=== PATIENT | female | born 1960 | race Caucasian/White ===

== ENCOUNTER → 2017-03-11 12:10 | Outpatient (CLI) | payer MEDICARE, MEDICAID, SELFPAY ==
[2017-03-11 14:09] LABS: Alanine Aminotransferase 22 U/L (12-78); Albumin Level 4.1 gm/dL (3.4-5.0); Albumin/Globulin Ratio 1.5 (1.1-1.8); Alkaline Phosphatase 100 U/L (46-116); Anion Gap 12.8 mEq/L (5-15); Aspartate Amino Transferase 23 U/L (15-37); Bilirubin,Total 0.5 mg/dL (0.2-1.0); Blood Urea Nitrogen 17 mg/dL (7-18); Calcium 9.2 mg/dL (8.5-10.1); Carbon Dioxide 29 mmol/L (21.0-32.0); Chloride 101 mmol/L (98-107); Chol/HDL Ratio 5.3 (1-3.5); Cholesterol 239 mg/dL (140-200); Creatinine,Serum 0.54 mg/dL (0.55-1.02); Estimated Glomerular Filt Rate 116 ml/min (>60); GFR (African American) 140 ML/MIN (>60); Globulin 2.8 gm/dl (1.3-3.2); Glucose 88 mg/dL (74-106); HDL Cholesterol 45 mg/dL (29-89); Potassium 3.8 mmoL/L (3.5-5.1); Sodium 139 mmol/L (136-145); Total Protein,Serum 6.9 gm/dL (6.4-8.2)
[2017-03-11 14:11] LABS: Triglycerides 720 mg/dL (30-200)
== END ==
PROVIDERS: PCP Internal Medicine Adolescent Medicine; Visit Provider Internal Medicine Adolescent Medicine
DX: E78.2 Mixed hyperlipidemia (principal)
CPT/HCPCS: 36415; 80053; 80061

== ENCOUNTER → 2017-07-21 12:54 | Outpatient (CLI) | payer MEDICARE, MEDICAID, SELFPAY | PROVIDERS: Family Provider Internal Medicine Adolescent Medicine; PCP Internal Medicine Adolescent Medicine; Visit Provider Nurse Practitioner Family | DX: J43.1 Panlobular emphysema (principal) | CPT/HCPCS: 94060; 94640 ==

== ENCOUNTER 2017-08-04 09:04 | Outpatient (RCR) | payer MEDICARE, MEDICAID, SELFPAY | END 2017-10-07 13:12 | disposition home or self-care (01) | LOC: PT 09:04 | PROVIDERS: Family Provider Internal Medicine Adolescent Medicine; PCP Internal Medicine Adolescent Medicine; Visit Provider Nurse Practitioner Family | DX: J43.1 Panlobular emphysema (principal); J44.1 Chronic obstructive pulmonary disease with (acute) exacerbation | CPT/HCPCS: G0424 ==

== ENCOUNTER → 2017-09-09 12:37 | Outpatient (CLI) | payer MEDICARE, MEDICAID, SELFPAY ==
[2017-09-09 12:57] LABS: Basophils # 0.1 K/mm3 (0-0.2); Basophils % 1.1 % (0.1-2.0); Eosinophils # 0.4 K/mm3 (0.0-0.4); Eosinophils % 6.6 % (0.1-12.0); Hematocrit 39.9 % (37.0-47.0); Hemoglobin 12.7 g/dL (12.2-16.2); Lymphocytes # 2.2 K/mm3 (0.7-4.5); Mean Corpuscular HGB Conc 31.7 g/dL (31.8-35.4); Mean Corpuscular Volume 100.7 fl (81-99); Mean Platelet Volume 6.8 fl (7.4-10.4); Monocytes # 0.5 K/mm3 (0.1-1.0); Monocytes % 7.9 % (1.7-9.3); Neutrophils % 49.4 % (37.0-80.0); Platelet Count 333 K/mm3 (142-424); Red Blood Count 3.96 M/mm3 (4.20-5.40); Red Cell Distribution Width 12.8 % (11.5-17.5); White Blood Count 6.1 K/mm3 (4.8-10.8)
--- NOTE | 2017-09-09 13:07 | XR_ITS ---
XR acute abdomen series HISTORY: Abdominal pain ORDERING PHYSICIAN: Alexey Pedraza MD PATIENT AGE: 57 years COMPARISON: PA and lateral chest 03/15/2016 TECHNIQUE: Upright view of the chest is performed along with upright and supine views of the abdomen and pelvis. FINDINGS: An upright view of the chest shows no acute cardiac or pulmonary pathology. The lungs are clear except for minimal post inflammatory scarring in the lingula.. Upright and supine views of the abdomen show an unremarkable bowel gas pattern. No intestinal obstruction or free air is evident. There is a moderate amount stool in the cecum and ascending colon. There is mildly dilated redundant sigmoid colon noted. There is prominent levoscoliotic curvature of the lower thoracic spine and thoracolumbar junction with a mild rotatory component. There is moderate arteriosclerotic calcification of the infrarenal aorta without evidence of aneurysm IMPRESSION: No acute finding.
[2017-09-09 14:14] LABS: Alanine Aminotransferase 26 U/L (12-78); Albumin Level 4.3 gm/dL (3.4-5.0); Albumin/Globulin Ratio 1.4 (1.1-1.8); Anion Gap 10.6 mEq/L (5-15); Aspartate Amino Transferase 18 U/L (15-37); Bilirubin,Total 0.2 mg/dL (0.2-1.0); Blood Urea Nitrogen 14 mg/dL (7-18); Calcium 9.6 mg/dL (8.5-10.1); Carbon Dioxide 29 mmol/L (21.0-32.0); Chloride 104 mmol/L (98-107); Cholesterol 265 mg/dL (140-200); Creatinine,Serum 0.49 mg/dL (0.55-1.02); Estimated Glomerular Filt Rate 130 ml/min (>60); GFR (African American) 157 ML/MIN (>60); Glucose 90 mg/dL (74-106); HDL Cholesterol 64 mg/dL (29-89); Potassium 3.6 mmoL/L (3.5-5.1); Sodium 140 mmol/L (136-145); Total Protein,Serum 7.3 gm/dL (6.4-8.2); Triglycerides 357 mg/dL (30-200); VLDL Cholesterol 71 mg/dL (0-40)
[2017-09-09 14:15] LABS: Alkaline Phosphatase 87 U/L (46-116); Chol/HDL Ratio 4.1 (1-3.5); LDL Cholesterol 130 mg/dL (0-130)
== END ==
PROVIDERS: PCP Internal Medicine Adolescent Medicine; Visit Provider Internal Medicine Adolescent Medicine
DX: E78.1 Pure hyperglyceridemia (principal); R10.84 Generalized abdominal pain
CPT/HCPCS: 36415; 74021; 80053; 80061; 85025

== ENCOUNTER → 2018-03-08 12:41 | Outpatient (CLI) | payer MEDICARE, MEDICAID, SELFPAY ==
[2018-03-08 13:30] LABS: Basophils # 0.1 K/mm3 (0-0.2); Basophils % 0.6 % (0.1-2.0); Eosinophils % 0.1 % (0.1-12.0); Hematocrit 40.1 % (37.0-47.0); Hemoglobin 12.5 g/dL (12.2-16.2); Lymphocytes # 1.7 K/mm3 (0.7-4.5); Lymphocytes % 17.6 % (10-50); Mean Corpuscular HGB Conc 31.3 g/dL (31.8-35.4); Mean Corpuscular Hemoglobin 31.5 pg (27.0-31.2); Mean Corpuscular Volume 100.6 fl (81-99); Mean Platelet Volume 7.2 fl (7.4-10.4); Monocytes # 0.4 K/mm3 (0.1-1.0); Monocytes % 4.5 % (1.7-9.3); Neutrophils # 7.3 K/mm3 (1.8-7.8); Neutrophils % 77.3 % (37.0-80.0); Platelet Count 317 K/mm3 (142-424); Red Blood Count 3.98 M/mm3 (4.20-5.40); Red Cell Distribution Width 13.6 % (11.5-17.5); White Blood Count 9.4 K/mm3 (4.8-10.8)
[2018-03-08 16:42] LABS: Alanine Aminotransferase 27 U/L (12-78); Albumin Level 4.3 gm/dL (3.4-5.0); Albumin/Globulin Ratio 1.3 (1.1-1.8); Alkaline Phosphatase 83 U/L (46-116); Anion Gap 16.8 mEq/L (5-15); Aspartate Amino Transferase 20 U/L (15-37); Bilirubin,Total 0.4 mg/dL (0.2-1.0); Blood Urea Nitrogen 17 mg/dL (7-18); Calcium 9.2 mg/dL (8.5-10.1); Carbon Dioxide 27 mmol/L (21.0-32.0); Chloride 100 mmol/L (98-107); Cholesterol 231 mg/dL (140-200); Creatinine,Serum 0.61 mg/dL (0.55-1.02); Estimated Glomerular Filt Rate 100 ml/min (>60); GFR (African American) 121 ML/MIN (>60); Globulin 3.2 gm/dl (1.3-3.2); Glucose 95 mg/dL (74-106); HDL Cholesterol 76 mg/dL (29-89); LDL Cholesterol 131 mg/dL (0-130); Potassium 3.8 mmoL/L (3.5-5.1); Sodium 140 mmol/L (136-145); Total Protein,Serum 7.5 gm/dL (6.4-8.2); Triglycerides 119 mg/dL (30-200); VLDL Cholesterol 24 mg/dL (0-40)
== END ==
PROVIDERS: Visit Provider Internal Medicine Adolescent Medicine
DX: E78.2 Mixed hyperlipidemia (principal); M47.816 Spondylosis without myelopathy or radiculopathy, lumbar region
CPT/HCPCS: 36415; 80053; 80061; 85025

== ENCOUNTER → 2018-05-18 15:43 | Outpatient (CLI) | payer MEDICARE, MEDICAID, SELFPAY ==
--- NOTE | 2018-05-18 15:47 | MM_ITS ---
MM Dig screening mamm BI w/CAD CAD Screening COMPARISON: Digital mammograms with CAD 09/24/2011 and previous analog mammogram June 2009 INDICATION: There is no personal or family history of breast cancer TECHNIQUE: Standard CC and MLO images were obtained. R2 CAD reviewed. FINDINGS: Scattered fibroglandular densities are seen throughout both breasts. There is no suspicious lesion and there are no suspicious microcalcifications. There are small nodes in both axilla. IMPRESSION: Fibrofatty parenchyma with no suspicious lesion seen BI-RADS Category: 1 Negative RECOMMENDED FOLLOW-UP: 1YR - 1 YEAR FOLLOW-UP (A letter has been sent to the patient regarding results of the study.)
== END ==
PROVIDERS: PCP Internal Medicine Adolescent Medicine; Visit Provider Internal Medicine Adolescent Medicine
DX: Z12.31 Encounter for screening mammogram for malignant neoplasm of breast (principal)
CPT/HCPCS: 77067

== ENCOUNTER → 2018-08-14 08:08 | Outpatient (CLI) | payer MEDICARE, MEDICAID, SELFPAY ==
[2018-08-14 08:14] LABS: Basophils # 0.1 K/mm3 (0-0.2); Eosinophils # 0.4 K/mm3 (0.0-0.4); Eosinophils % 5.5 % (0.1-12.0); Hematocrit 40.6 % (37.0-47.0); Hemoglobin 12.6 g/dL (12.2-16.2); Lymphocytes % 32.4 % (10-50); Mean Corpuscular HGB Conc 31.1 g/dL (31.8-35.4); Mean Corpuscular Hemoglobin 29.9 pg (27.0-31.2); Mean Corpuscular Volume 96.2 fl (81-99); Mean Platelet Volume 7.4 fl (7.4-10.4); Monocytes # 0.3 K/mm3 (0.1-1.0); Monocytes % 4.6 % (1.7-9.3); Neutrophils # 3.6 K/mm3 (1.8-7.8); Neutrophils % 56.6 % (37.0-80.0); Platelet Count 321 K/mm3 (142-424); Red Blood Count 4.22 M/mm3 (4.20-5.40); Red Cell Distribution Width 12.5 % (11.5-17.5); White Blood Count 6.3 K/mm3 (4.8-10.8)
[2018-08-14 08:24] LABS: Alanine Aminotransferase 25 U/L (12-78); Albumin/Globulin Ratio 1.3 (1.1-1.8); Alkaline Phosphatase 78 U/L (46-116); Anion Gap 12.6 mEq/L (5-15); Aspartate Amino Transferase 19 U/L (15-37); Bilirubin,Total 0.6 mg/dL (0.2-1.0); Blood Urea Nitrogen 10 mg/dL (7-18); Calcium 9.2 mg/dL (8.5-10.1); Carbon Dioxide 29 mmol/L (21.0-32.0); Chloride 101 mmol/L (98-107); Estimated Glomerular Filt Rate 126 ml/min (>60); GFR (African American) 153 ML/MIN (>60); Globulin 3.1 gm/dl (1.3-3.2); Glucose 102 mg/dL (74-106); Potassium 3.6 mmoL/L (3.5-5.1); Sodium 139 mmol/L (136-145); Total Protein,Serum 7.1 gm/dL (6.4-8.2)
--- NOTE | 2018-08-14 08:51 | CT_ITS ---
CT chest wo/w con HISTORY: Smoker, cough, hemoptysis ITS.REASON: HEMOPTYSIS ORDERING PHYSICIAN: Alexey Pedraza MD PATIENT AGE: 58 years COMPARISON: None Technique: Contrast Used:75ml Optiray 350 Axial images were obtained without and with contrast. Sagittal, and coronal reformatted images are also generated and reviewed. All CT scans at the facility use one or more dose reduction, viz: automated exposure control, ma/kV adjustment per patient size (including targeted exams where dose is matched to indication, i.e. head), or iterative reconstruction technique. FINDINGS: No mediastinal or hilar mass or adenopathy. No evidence of aortic aneurysm or dissection. No coronary artery calcifications are evident on the unenhanced images. There are scattered calcified mediastinal and hilar nodes. There is evidence of old granulomatous disease. There is centrilobular emphysema with COPD. 3 mm noncalcified subpleural nodules present in the right upper lobe anterolaterally on image #37. 4 mm noncalcified subpleural nodule present in the left upper lobe anteriorly image #34. Atelectatic or fibrotic changes are present in the lingula. Atelectatic or fibrotic changes also noted in the right lower lobe laterally. There is some minimal nodularity at this region measuring up to 6 mm. There is moderate mid thoracic scoliosis convex right and thoracic lumbar scoliosis convex left with degenerative changes noted of the thoracic and lumbar spine. There are old left-sided rib fractures. IMPRESSION: 1. COPD with centrilobular disease with atelectasis or fibrosis in the lingula 2. There are at least 3 noncalcified pulmonary nodular opacities. These are 6 mm or less. Consider 6 month follow-up. 3. Thoracolumbar scoliosis
== END ==
PROVIDERS: Visit Provider Internal Medicine Adolescent Medicine
DX: R04.2 Hemoptysis (principal); J43.1 Panlobular emphysema
CPT/HCPCS: 36415; 71270; 80053; 82565; 85025; Q9967

== ENCOUNTER → 2018-11-16 08:33 | Outpatient (POV) | payer MEDICARE, MEDICAID, SELFPAY ==
[2018-11-16 08:35] VITALS: BP 118/117; PULSE 111; RESP 18; O2SAT 98; BMI 21.4
--- NOTE | 2018-11-16 12:56 | HMH.PMCON ---
Assessment and Plan (1) Lumbar back pain Current visit: Yes Status: Chronic Category: Medical Code(s): M54.5 - Low back pain (2) Lumbar radiculopathy Current visit: Yes Status: Chronic Category: Medical Code(s): M54.16 - Radiculopathy, lumbar region - Assessment and plan all Dx Assessment and Plan for all problems:: Patient had a very long discussion that we would not be providing any other oral medications the patient is currently taking [place] 7.5 mg [address] Pedraza. The patient is in agreement to have injective therapy after a long discussion concerning the procedure. Patient would like to proceed with a lumbar epidural steroid injection. Given her imaging and her chronic low back pain, I do think the patient would benefit from an injection at L4-L5. We will schedule the patient for the procedure see her back in the clinic following the procedure to reassess her symptoms. Patient is not on any anticoagulation therapy. Ice and heat therapies, along with anti-inflammatories and a home stretching program. The patient has been encouraged to contact the clinic if she has any concerns before her next appointment. Dr. Bowles has reviewed this note and agrees with this plan of care. This note was dictated using voice recognition software and make contain errors or omissions. HPI - Data of Consult Consult date: 11/16/18 Requesting Physician: Laina Montemayor APRN Primary Care Provider: Alexey Pedraza MD - Consult Narrative Reason for consult: Back pain History of present illness: Ms. Navarro is a 58 year old white female today for consultation for low back pain lumbar radicular symptoms. Patient says that she is a for long periods of time. Patient says that she is getting progressively worsening pain to her low back and legs. Patient says that she is unable to stand for more than a minute or walk for more than 5 minutes. She says that she developed severe spasms, to the point that she is unable to move. Patient says that she has been taking oral opiates for many years, but says that she has recently been weaned down on the medication. Patient is not happy to have been weaned on her medications. Patient says that she has taken medication for than 20 years for her back pain. She says that she is now seeing Dr. Decker who has decreased her medicine and she is here today to discuss possible pain management. Patient says that she is terrified of needles and is unsure if she would like to do injective therapy. She also says she is not interested in any type of implantable devices at this time. Patient would like to discuss possible oral medications. She says that she thinks she would prefer that to injective therapy. Patient says Dr. Melendez has been weaning her for more than 2 years on her medication. She rates her pain a 9 out of 10 today. Says she is unable to bend forward or to sit for very long. She also says that she is having a hard time focusing due to the pain. The patient has tried conservative therapies which include physical therapy for greater than 6 weeks, along with a home stretching program currently. She says she has tried meditation, but is unable to stay focused for very long. She also says she is continuing to take her oral opiates, along with anti-inflammatories. CC: Laina Montemayor APRN [facility] History I have reviewed the patient's past medical history: Yes *Have you ever received a pneumonia vaccine?: No *Have you received a flu vaccine this season?: No Other Medical History: Reports: Arthritis - *Social History Smoking Status: Current some day smoker Tobacco Type: cigarettes # Packs/Day (cigarettes): 1 Alcohol Intake: never *Occupational Status:: other Housing: house Household Members: other *Travel in the last 8 weeks: None Family Hx:: Unable to obtain Review of Systems - Review of Systems Review of Systems General: No recent weight changes, no fever, no sleep dis
--- NOTE | 2018-11-16 13:00 | P.CONS_ITS ---
Assessment and Plan (1) Lumbar back pain Current visit: Yes Status: Chronic Category: Medical Code(s): M54.5 - Low back pain (2) Lumbar radiculopathy Current visit: Yes Status: Chronic Category: Medical Code(s): M54.16 - Radiculopathy, lumbar region - Assessment and plan all Dx Assessment and Plan for all problems:: Patient had a very long discussion that we would not be providing any other oral medications the patient is currently taking [place] 7.5 mg [address] Pedraza. The patient is in agreement to have injective therapy after a long discussion concerning the procedure. Patient would like to proceed with a lumbar epidural steroid injection. Given her imaging and her chronic low back pain, I do think the patient would benefit from an injection at L4-L5. We will schedule the patient for the procedure see her back in the clinic following the procedure to reassess her symptoms. Patient is not on any anticoagulation therapy. Ice and heat therapies, along with anti-inflammatories and a home stretching program. The patient has been encouraged to contact the clinic if she has any concerns before her next appointment. Dr. Bowles has reviewed this note and agrees with this plan of care. This note was dictated using voice recognition software and make contain errors or omissions. HPI - Data of Consult Consult date: 11/16/18 Requesting Physician: Laina Montemayor APRN Primary Care Provider: Alexey Pedraza MD - Consult Narrative Reason for consult: Back pain History of present illness: Ms. Navarro is a 58 year old white female today for consultation for low back pain lumbar radicular symptoms. Patient says that she is a for long periods of time. Patient says that she is getting progressively worsening pain to her low back and legs. Patient says that she is unable to stand for more than a minute or walk for more than 5 minutes. She says that she developed severe spasms, to the point that she is unable to move. Patient says that she has been taking oral opiates for many years, but says that she has recently been weaned down on the medication. Patient is not happy to have been weaned on her medications. Patient says that she has taken medication for than 20 years for her back pain. She says that she is now seeing Dr. Decker who has decreased her medicine and she is here today to discuss possible pain management. Patient says that she is terrified of needles and is unsure if she would like to do injective therapy. She also says she is not interested in any type of implantable devices at this time. Patient would like to discuss possible oral medications. She says that she thinks she would prefer that to injective therapy. Patient says Dr. Melendez has been weaning her for more than 2 years on her medication. She rates her pain a 9 out of 10 today. Says she is unable to bend forward or to sit for very long. She also says that she is having a hard time focusing due to the pain. The patient has tried conservative therapies which include physical therapy for greater than 6 weeks, along with a home stretching program currently. She says she has tried meditation, but is unable to stay focused for very long. She also says she is continuing to take her oral opiates, along with anti-inflammatories. CC: Laina Montemayor APRN [facility] History I have reviewed the patient's past medical history: Yes *Have you ever received a pneumonia vaccine?: No *Have you received a flu vaccine this season?: No Other Medical History: Reports: Arthritis - *Social History Smoking Status: Current some day smoker Tobacco Type: cigarettes # Packs/Day (cigarettes): 1
== END ==
PROVIDERS: PCP Internal Medicine Adolescent Medicine; Visit Provider Clinical Nurse Specialist Family Health
DX: M54.5 Low back pain (principal); M54.16 Radiculopathy, lumbar region
CPT/HCPCS: 99202

== ENCOUNTER → 2019-02-03 07:33 | Outpatient (CLI) | payer MEDICARE, MEDICAID, SELFPAY ==
[2019-02-03 07:55] LABS: Basophils # 0.1 K/mm3 (0-0.2); Basophils % 0.7 % (0.1-2.0); Eosinophils # 0.2 K/mm3 (0.0-0.4); Eosinophils % 2.5 % (0.1-12.0); Hematocrit 41.2 % (37.0-47.0); Hemoglobin 13.8 g/dL (12.2-16.2); Lymphocytes # 2.6 K/mm3 (0.7-4.5); Lymphocytes % 38.1 % (10-50); Mean Corpuscular HGB Conc 33.5 g/dL (31.8-35.4); Mean Corpuscular Hemoglobin 32.6 pg (27.0-31.2); Mean Corpuscular Volume 97.5 fl (81-99); Monocytes # 0.4 K/mm3 (0.1-1.0); Neutrophils # 3.5 K/mm3 (1.8-7.8); Neutrophils % 52.6 % (37.0-80.0); Platelet Count 306 K/mm3 (142-424); Red Blood Count 4.23 M/mm3 (4.20-5.40); White Blood Count 6.7 K/mm3 (4.8-10.8)
[2019-02-03 12:26] LABS: Alanine Aminotransferase 16 U/L (12-78); Albumin Level 4.2 gm/dL (3.4-5.0); Albumin/Globulin Ratio 1.5 (1.1-1.8); Alkaline Phosphatase 70 U/L (46-116); Aspartate Amino Transferase 19 U/L (15-37); Bilirubin,Total 0.7 mg/dL (0.2-1.0); Blood Urea Nitrogen 16 mg/dL (7-18); Calcium 9.6 mg/dL (8.5-10.1); Carbon Dioxide 29 mmol/L (21.0-32.0); Chloride 97 mmol/L (98-107); Chol/HDL Ratio 5.2 (1-3.5); Cholesterol 262 mg/dL (140-200); Creatinine,Serum 0.63 mg/dL (0.55-1.02); Estimated Glomerular Filt Rate 97 ml/min (>60); GFR (African American) 117 ML/MIN (>60); Globulin 2.8 gm/dl (1.3-3.2); Glucose 90 mg/dL (74-106); HDL Cholesterol 50 mg/dL (29-89); Sodium 140 mmol/L (136-145)
[2019-02-03 12:43] LABS: Triglycerides 1023 mg/dL (30-200)
== END ==
PROVIDERS: Visit Provider Internal Medicine Adolescent Medicine
DX: E78.2 Mixed hyperlipidemia (principal); J43.1 Panlobular emphysema
CPT/HCPCS: 36415; 80053; 80061; 85025

== ENCOUNTER → 2019-04-17 13:47 | Outpatient (CLI) | payer MEDICARE, MEDICAID, SELFPAY ==
[2019-04-17 14:55] LABS: Amphetamine/Metha Screen,Urine Negative ng/ml (<1000)
[2019-04-17 14:56] LABS: Barbiturates Screen,Urine Negative ng/ml (<200); Benzodiazepines Screen,Urine Negative ng/ml (<200)
[2019-04-17 14:57] LABS: Cannabinoid Screen,Urine Negative ng/ml (<50)
[2019-04-17 14:58] LABS: Cocaine Screen,Urine Negative ng/ml (<300); Methadone Screen,Urine Negative ng/ml (<300)
[2019-04-17 14:59] LABS: Opiate Screen,Urine Positive ng/ml (<300); Phencyclidine Screen,Urine Negative ng/ml (<25)
== END ==
PROVIDERS: Visit Provider Emergency Medicine
DX: M54.5 Low back pain (principal); M54.6 Pain in thoracic spine
CPT/HCPCS: 80305

== ENCOUNTER → 2019-09-04 06:10 | Outpatient (CLI) | payer MEDICARE, MEDICAID, SELFPAY ==
--- NOTE | 2019-09-04 | CA_ITS ---
APPROVED REPORT Exam: Pharmacologic Technologist: Heather Garcia Ht: 5 ft 1 in Wt: 114 lbs BSA: 1.49 m2 HR: 67 bpm BP: 173/97 mmHg Indications: Chest pain, Shortness of Air Medical History Medications: Trazadone,,,,, Pantoprazole,,,,, Albuterol,,,,, Famotidine,,,,, Prednisone,,,,, FeNOfibrate,,,,, OxYCODONE,,,,, BisOPROLOL,,,,, FluTICASONE,,,,, Quetiapine,,,,, Stress Test Details Test: LEXISCAN HR Resting HR: 78 bpm Max Heart Rate (APMHR): 160 bpm Max HR Achieved: 100 bpm Target HR (85% APMHR): 136 bpm % of APMHR: 62 Recovery HR: 84 bpm BP Resting BP: 173.0/97.0 mmHg Max BP: 173.0/97.0 mmHg Recovery BP: 145.0/94.0 mmHg ECG Clinical Exercise duration: 04:05 min Highest Stage Achieved: Exercise capacity: 1.0 METs Stress ECG Conclusion Resting ECG: Normal sinus rhythm Symptoms: Shortness of air, malaise, mild chest tightness. Arrhythmias/Ectopy: None ST-T Changes: No significant changes. Conclusion: Unremarkable Lexiscan stress. Myoview images reported separately. Electronically signed by : Rohith Armijo, 09/04/2019 20:25:13
--- NOTE | 2019-09-04 06:11 | CA_ITS ---
APPROVED REPORT EXAM: Comprehensive 2D, Doppler, and color-flow Echocardiogram Operations Accountant: Afsaneh Andre RDCS Ht: 5 ft 1 in Wt: 114lbs BSA: 1.49 BP: 168/98 mmHg Indications: CP.COPD,SMOKER,SOA,BAUER,HTN 2D Dimensions LVOT 1.73 cm (M/F) 1.5-2.5 M-Mode Dimensions RVDd 3.26 cm (0.9-2.6) LVDd 4.66 cm (3.5-5.7) LVDs 2.61 cm (3.5-5.7) IVSd 0.84 cm (0.6-1.1) PWd 0.92 cm (0.6-1.1) EF (Teich) 75.30% FS 44.00% EDV (Teich) 100.30 mL ESV (Teich) 24.80 mL LV Diastology E/A Ratio 0.72 Mitral Valve MV A Velocity 73.00 (40-130 cm/s) Left Ventricle Left atrium is mildly enlarged, left ventricle is normal size, mild concentric left ventricular hypertrophy, visually estimated ejection fraction 55% with no regional wall motion abnormality, grade 1 diastolic dysfunction seen without tissue Doppler evidence of raise left atrial pressure. Right Ventricle Right atrium and right ventricular qualitatively mildly enlarged with normal contractility. Aortic Valve Aortic valve is minimally thickened and fibrosed, there is no aortic stenosis or insufficiency. Mitral Valve Mitral valve is grossly normal, there is mild mitral regurgitation. Tricuspid Valve Tricuspid valve grossly normal, there is mild tricuspid regurgitation, tricuspid regurgitation jet velocity is inadequate for calculation of the right ventricular systolic pressure. Pulmonic Valve Pulmonic valve is poorly visualized. Great Vessels Aortic root is normal size. Pericardium No significant pericardial effusion noted. Conclusion 1. Mild biatrial enlargement, normal left ventricular size, mild concentric left ventricular hypertrophy, visually estimated ejection fraction 55% with no regional wall motion abnormality, grade 1 diastolic dysfunction seen without tissue Doppler evidence of raise left atrial pressure. 2. Mildly enlarged right ventricle with normal contractility. 3. Mild mitral and tricuspid regurgitation. 4. No significant pericardial effusion noted. Electronically signed by : Rohith Armijo, 09/04/2019 19:42:53
--- NOTE | 2019-09-04 06:11 | NM_ITS ---
APPROVED REPORT Exam: Nuclear Stress Test Indication: Chest pain, SOB, HTN, High cholesterol, Former tobacco use Patient Location: Outpatient Stress Tech: Heather Garcia [place] Tech:Heidi Burrows, ARRT, RT (R)(N) Ht: 5 ft 1 in Wt: 114 lbs Bra Size: 36B HR: 67 bpm BP: 173/97 mmHg BSA: 1.49 m2 BMI: 21.5 History: Chest pain, SOB, HTN, High cholesterol, Former tobacco use Procedure: Patient received a 0.4 mg of intravenous Lexiscan, resting heart rate 67 bpm, resting blood pressure 173/97 mmHg, with Lexiscan maximum heart rate achived was 99 bpm which is Less than 85 % of the maximum predicted heart rate and blood pressure was 142/87 mmHg. Electrocardiogram Resting electrocardiogram showed sinus rhythm, with Lexiscan there is less than 1.[address] segment depression noted from the baseline EKG. The EKG portion of the Lexiscan Myoview is nondiagnostic. Cardiac Stress and Resting SPECT Images: Cardiac Stress and Resting SPECT images were obtained using technetium 99m Myoview 32.2 mCi stress and 10.23 mCi at rest. Gated SPECT for the analysis of segmental wall motion and calculation of the ejection fraction also done. Cardiac stress and resting SPECT images show uniform myocardial activity without segmental perfusion abnormality, computer derived ejection fraction is 64% with no regional wall motion abnormality, right ventricle is normal size and contractility. Conclusion: 1. The EKG portion of the Lexiscan Myoview is nondiagnostic. 2. No scintigraphic evidence of reversible ischemia seen, computer derived ejection fraction is 64% with no regional wall motion abnormality, right ventricle is normal size and contractility. 3. Normal Lexiscan Myoview study. Electronically signed by : Rohith Armijo, 09/04/2019 20:26:58
--- NOTE | 2019-09-04 07:06 | HMH.ITSHM ---
Current Home Medications as stated by this patient Chyna Navarro or manufacturing sales representative. []FAMOTIDINE IPRATROPIUM ALBUTEROL TRILEGY QAUETIAPINE TRAZODONE PREDNISONE BISOPROLOL OXYCODONE
== END ==
PROVIDERS: PCP Emergency Medicine; Visit Provider Urology
DX: R06.00 Dyspnea, unspecified (principal); R07.9 Chest pain, unspecified; Z72.0 Tobacco use
CPT/HCPCS: 78452; 93017; 93306; A9502; J2785

== ENCOUNTER → 2019-09-18 07:44 | Outpatient (CLI) | payer MEDICARE, MEDICAID, SELFPAY ==
--- NOTE | 2019-09-18 07:46 | CA_ITS ---
APPROVED REPORT Hospital Admissions Clerk: Colleen Gao RVT Study Quality: Good Indications: malignant htn Risk Factors Hypertension Smoking Renal Artery Doppler Origin (R) 269.0/ cm/sec Proximal (R) 191.9/ cm/sec Mid (R) 166.5/ cm/sec Distal (R) 96.0/ cm/sec Renal Aorta Ratio (R) 3.13 Segmental A. (R) 51.8/30.1 cm/sec RI: 0.41 Segmental A. Sup (R) 34.2/14.9 cm/sec Segmental A. Mid (R) 51.8/30.1 cm/sec Segmental A. Inf (R) 49.9/18.8 cm/sec Origin (L) 162.4/ cm/sec Proximal (L) 98.0/ cm/sec Mid (L) 141.3/ cm/sec Distal (L) 105.6/ cm/sec Renal Aorta Ratio (L) 1.89 Segmental A. (L) 104.2/37.6 cm/sec RI: 0.63 Segmental A. Sup (L) 50.9/21.8 cm/sec Segmental A. Mid (L) 104.2/37.6 cm/sec Segmental A. Inf (L) 59.4/19.4 cm/sec Renal Measurements Kidney Size (R) 10.0x6.6 cm Cortical Thickness (R) 1.3 cm Kidney Size (L) 10.0x6.9 cm Cortical Thickness (L) 1.3 cm Findings Study suggets greater than 60% stenosis of the right renal artery. Study suggets no evidence of renal artery stenosis of the left renal artery. Conclusion Study suggets greater than 60% stenosis of the right renal artery. Study suggets no evidence of renal artery stenosis of the left renal artery. Electronically signed by : Ciarra Baez, 09/20/2019 09:06:23
== END ==
PROVIDERS: PCP Emergency Medicine; Visit Provider Nurse Practitioner Family
DX: I10 Essential (primary) hypertension (principal)
CPT/HCPCS: 93976

== ENCOUNTER → 2019-10-19 08:42 | Outpatient (CLI) | payer MEDICARE, MEDICAID, SELFPAY ==
--- NOTE | 2019-10-19 08:50 | CT_ITS ---
Procedure: CT ANGIO ABDOMEN CLINICAL HISTORY: see renals Hypertension, renal artery stenosis COMPARISON: US CA RENAL ARTERY DUPLEX from 09/18/2019 TECHNIQUE: IV Contrast: 100ml Optiray 350 Axial images obtained with sagittal and coronal reformats. All CT scans at the facility use one or more dose reduction, viz: automated exposure control, ma/kV adjustment per patient size (including targeted exams where dose is matched to indication, i.e. head), or iterative reconstruction technique. FINDINGS: There is tortuosity and atherosclerotic calcification of the abdominal aorta. There are 2 right renal arteries which originate from the aorta at the same level. The anterior of these 2 renal arteries goes to the anterior aspect of the right kidney. There is some mild segmental dilatation of the proximal to mid aspect of this renal artery measuring up to 5 mm. There appears to be a small atheromatous ulcer at this region. There is also mild dilatation of the distal aspect of this main renal artery measuring up to 4 mm at its bifurcation in the renal hilum. There is also mild dilatation of the proximal aspect of the posterior right renal artery measuring up to 5 mm. No significant renal artery stenosis is identified. There are 2 left renal arteries with the dominant artery more superior without evidence of stenosis. There is some minimal dilatation of the distal aspect of the superior left renal artery measuring up to 5 mm. The superior mesenteric artery and celiac artery are unremarkable. The JOSE LUIS is patent. Atheromatous changes involve the aorta with peripheral calcification below the level of the renal arteries. The iliac arteries have an unremarkable appearance. Incidental note made of centrilobular emphysema in the lung bases with consolidation/volume loss involving the inferior aspect of the lingula. There is levoscoliosis of the lumbar spine with multilevel degenerative disc disease and facet arthritic change IMPRESSION: 1. No evidence of renal artery stenosis. 2. There are small segmental areas of dilatation involving the renal arteries on both sides Dictated by: Peter Morrissey MD 10/22/2019 07:00 Peter Morrissey MD in [place] 10/22/2019 07:00
[2019-10-19 09:07] LABS: Blood Urea Nitrogen 15 mg/dl (7-17); Estimated Glomerular Filt Rate 126 ml/min (>60); GFR (African American) 152 ML/MIN (>60)
== END ==
PROVIDERS: PCP Emergency Medicine; Visit Provider Urology
DX: I70.1 Atherosclerosis of renal artery; R06.00 Dyspnea, unspecified; I10 Essential (primary) hypertension
CPT/HCPCS: 36415; 74175; 82565; 84520; Q9967

== ENCOUNTER → 2020-02-04 08:14 | Outpatient (CLI) | payer MEDICARE, MEDICAID, SELFPAY ==
[2020-02-04 09:40] LABS: Coronavirus 19 IgG Antibody Negative (Negative); Coronavirus 19 IgM Antibody Negative (Negative)
== END ==
PROVIDERS: Visit Provider Surgery
DX: Z01.818 Encounter for other preprocedural examination (principal); Z03.818 Encounter for observation for suspected exposure to other biological agents ruled out; Z12.11 Encounter for screening for malignant neoplasm of colon; Z86.010 Personal history of colon polyps
CPT/HCPCS: 36415; 86328

== ENCOUNTER 2020-02-05 08:24 | Day surgery (SDC) | payer MEDICARE, MEDICAID, SELFPAY ==
[2020-02-01 15:58] VITALS: BMI 22.3
[2020-02-05 08:44] VITALS: BP 134/93; PULSE 73; RESP 18; TEMP 36.8; O2SAT 96
--- NOTE | 2020-02-05 09:26 | HMH.ANESCL ---
[facility] Anesthesia Checklist - Patient Identification Patient Identification: Arm Band, Verbal (Name & ) - Structural Data Admitted From: Home Planned Operative Procedure/s: colon Consent for Planned Operative Procedure(s) Verified: Yes Verified Documents: History and Physical - NPO Status Verified Time NPO: 00:00 - Additional verifications Patient : No Anesthesia Reactions: No Hx Blood Transfusions: No Blood Transfusion Reaction: No Cephalosporin Allergy: No Previous Colonoscopy: Yes - Cardiovascular Assessment Heart Sounds: S1 & S2 Pulse Strength: Baseline Pulse Rhythm: Regular Peripheral Edema: No - Airway Assessment C-Spine Mobility Assessed: Yes TMJ Mobility Assessed: Yes Dentition: Poor Dentition - Neurological Assessment Level of Consciousness: Awake, Alert, Appropriate Hx Seizures: No Numbness or tingling in extremities: No - Anesthesia Plan Anesthesia Risk discussed: Yes Anesthesia Plan: Verified ASA Class: III Anesthesia Type: [facility] History I have reviewed the patient's past medical history: Yes Medical History: Reports:: Anxiety, Chronic Obstructive Pulmonary Disease (COPD), Depression, Hyperlipidemia Denies:: Cancer, Diabetes Mellitus Type 1, Diabetes Mellitus Type 2, Internal Pacemaker, MRSA, Seizures *Have you ever received a pneumonia vaccine?: Yes *Have you received a flu vaccine this season?: Yes Other Medical History: Reports: Arthritis. Denies: Blood Transfusion Reaction Anesthesia experience/problems:: none Laterality Cases: Bilateral: Cataract Other Surgeries: Yes: Colonoscopy, Dilation and Curettage, Other. No: Pacemaker Amputation: No Fractures: No - *Social History Last grade of school completed: Advanced degree Smoking Status: Former smoker Tobacco Type: cigarettes # Packs/Day (cigarettes): 1 Alcohol Intake: never Alcohol Intake Frequency:: a few times a week Substance Use Type: denies use *Occupational Status:: disabled Housing: house Household Members: other *Travel in the last 8 weeks: None - Psychiatric History Pschychiatric History:: Reports:: Anxiety, Depression Family Hx:: Diabetes
[2020-02-05 09:34] VITALS: O2SAT 96
[2020-02-05 10:25] VITALS: BP 129/62; PULSE 80; RESP 18; TEMP 37.2; O2SAT 96
--- NOTE | 2020-02-05 10:26 | HMH.GSHP ---
HPI HPI: Patient presents to the office for follow-up scheduling of colonoscopy. She is a 59-year-old female with multiple medical comorbidities including hypertension, renal artery disease, mood disorder , oxygen dependent COPD, anxiety, chronic low back pain from kyphosis and scoliosis. She sees pain management physician at outside facility. I had performed a colonoscopy on her earlier this year as screening for positive Cologuard. She was found to have 20 polyps and at least 15 of these were adenomatous with a 20 mm tubulovillous adenoma in the cecum which was marked with Jennifer ink. Patient states that due to her pain medication she takes for chronic back pain she has developed some significant constipation. She states I literally cannot go to the bathroom . She has to force herself with suppositories and laxatives. She states that she had been given a relistor but this was cost prohibitive. She does admit that she is not very compliant with her medications and she states I do not take my medications religiously except my pain medicine. [facility] History I have reviewed the patient's past medical history: Yes Medical History: Reports:: Anxiety, Chronic Obstructive Pulmonary Disease (COPD), Depression, Hyperlipidemia Denies:: Cancer, Diabetes Mellitus Type 1, Diabetes Mellitus Type 2, Internal Pacemaker, MRSA, Seizures *Have you ever received a pneumonia vaccine?: Yes *Have you received a flu vaccine this season?: Yes Other Medical History: Reports: Arthritis. Denies: Blood Transfusion Reaction Anesthesia experience/problems:: none Laterality Cases: Bilateral: Cataract Other Surgeries: Yes: Colonoscopy, Dilation and Curettage, Other. No: Pacemaker Amputation: No Fractures: No - *Social History Last grade of school completed: Advanced degree Smoking Status: Former smoker Tobacco Type: cigarettes # Packs/Day (cigarettes): 1 Alcohol Intake: never Alcohol Intake Frequency:: a few times a week Substance Use Type: denies use *Occupational Status:: disabled Housing: house Household Members: other *Travel in the last 8 weeks: None - Psychiatric History Pschychiatric History:: Reports:: Anxiety, Depression Family Hx:: Diabetes Meds Home Medications Medication Instructions Recorded Confirmed Type albuterol sulfate 90 mcg/actuation 2 puff INHALATION Q6H PRN 02/28/19 02/05/20 History aerosol inhaler nebulizers See Rx Instructions .ROUTE 02/28/19 02/05/20 History .MEDSUPPLY #1 each ipratropium 0.5 mg-albuterol 3 mg 3 ml INHALATION Q4-6H PRN #180 ml 03/06/19 02/05/20 Rx (2.5 mg base)/3 mL nebulization soln prednisone 10 mg tablet 10 mg PO DAILY PRN tab 09/12/19 02/05/20 History quetiapine 200 mg tablet 200 mg PO QHS #90 tab 09/24/19 02/05/20 Rx quetiapine 25 mg tablet 25 mg PO QHS #90 tab 09/24/19 02/05/20 Rx fenofibrate nanocrystallized 145 145 mg PO DAILY tab 10/10/19 02/05/20 History mg tablet hydrocodone 10 mg-acetaminophen 1 tab PO Q6H PRN tab 10/24/19 02/05/20 History 325 mg tablet trazodone 150 mg tablet 150 mg PO QHS #90 tab 12/20/19 02/05/20 Rx Aspirin [Low Dose Aspirin EC] 81 mg PO DAILY 02/01/20 02/05/20 History Bisoprolol/Hydrochlorothiazide 1 tab PO DAILY 02/01/20 02/05/20 History [Bisoprolol-Hctz 5-6.25 mg Tab] Fluticasone/Umeclidin/Vilanter See Rx Instructions .ROUTE .COMPLEX 02/01/20 02/05/20 History [Trelegy Ellipta 100-62.5-25] Sod Picosulf/Mag Ox/Citric AC 1 packet PO DAILY 02/01/20 02/05/20 History [Prepopik] polyethylene glycoL 3350 17 g PO DAILY 02/01/20 02/05/20 History [Polyethylene Glycol 3350] Allergies Allergy/AdvReac Type Severity Reaction Status Date / Time lamotrigine [From LAMICTAL] Allergy Unknown Verified 02/05/20 08:42 Exam Vital signs and Labs for Last 24 Hours: Temp Pulse Resp BP Pulse Ox 98.2 F 73 18 134/93 H 96 02/05/20 08:44 02/05/20 08:44 02/05/20 08:44 02/05/20 08:44 02/05/20 08:44 I & O for Last 24 hours: Intake &
--- NOTE | 2020-02-05 10:27 | HMH.SCOPE ---
- Procedure: Date: 02/05/20 Patient Date of :: 1960 Procedure Performed:: Total colonoscopy to terminal ileum with multiple polypectomy by snare and biopsy forceps Indications:: Patient presents for follow-up colonoscopy. She is a 59-year-old female with multiple medical comorbidities including hypertension, renal artery disease, mood disorder , oxygen dependent COPD, anxiety, chronic low back pain from kyphosis and scoliosis. She sees pain management physician at outside facility. I had performed a colonoscopy on her earlier this year as screening for positive Cologuard. She was found to have 20 polyps and at least 15 of these were adenomatous with a 20 mm tubulovillous adenoma which was marked with Jennifer ink. Patient states that due to her pain medication she takes for chronic back pain she has developed some significant constipation. Performing Provider:: Bennie Evans MD Referring Provider:: None Sedation:: MAC sedation Procedure:: Patient was taken to endoscopy procedure room. She was positioned in a lateral decubitus position. Adequate intravenous sedation was achieved with anesthesia titration of propofol. Variable stiffness Olympus colonoscope was inserted via the anus. Was advanced to the cecum with some minor difficulty due to floppiness and redundancy of the sigmoid colon. Ileocecal valve and appendiceal orifice were clearly identified. Colonoscope was advanced a short distance into the terminal ileum which appeared grossly normal. Colonoscope was slowly withdrawn through the colon with careful surveillance. She did have an adenomatous appearing polyp encountered in the ascending colon which was removed with cold cutting snare. There is some very minor subtle mucosal irregularity in the transverse colon along a ridge and biopsies were obtained. In the descending colon she had a sessile possible serrated adenoma removed with cold cutting snare. There is a small diminutive polyp in the sigmoid colon removed with cold biopsy forceps. Rectosigmoid region there was a hyperplastic appearing polyp removed with cold biopsy forceps. Retroflexion revealed no evidence of any pathologic internal hemorrhoids. Colonoscope was withdrawn. Findings:: Adenomatous appearing ascending colon polyp Minor subtle mucosal area irregularity along a ridge in the transverse colon, biopsied Sessile descending colon polyp Sigmoid polyp Rectosigmoid polyp Recommendations:: Follow-up on histopathology. Likely repeat colonoscopy 1 to 2 years given findings on colonoscopy earlier this year. Complications:: None immediately apparent Estimated blood obtained (mL): 2
[2020-02-05 10:35] VITALS: BP 120/74; PULSE 65; RESP 18; O2SAT 97
[2020-02-05 10:45] VITALS: BP 114/71; PULSE 67; RESP 18; O2SAT 94
[2020-02-05 10:55] VITALS: BP 108/68; PULSE 67; RESP 18; O2SAT 97
== END 2020-02-05 10:58 | disposition home or self-care (01) ==
LOC: OUTP 08:26
PROVIDERS: PCP Emergency Medicine; Visit Provider Surgery
PROC: 0DJD8ZZ Inspection of Lower Intestinal Tract, Via Natural or Artificial Opening Endoscopic (ICD-10-PCS; CPT 45380; principal; 2020-02-05 09:30)
DX: I10 Essential (primary) hypertension; J44.9 Chronic obstructive pulmonary disease, unspecified; K63.5 Polyp of colon; R19.5 Other fecal abnormalities; Z86.010 Personal history of colon polyps; I70.1 Atherosclerosis of renal artery; F39 Unspecified mood [affective] disorder; Z99.81 Dependence on supplemental oxygen; M40.209 Unspecified kyphosis, site unspecified; M41.9 Scoliosis, unspecified; Z88.8 Allergy status to other drugs, medicaments and biological substances; Z79.899 Other long term (current) drug therapy
CPT/HCPCS: 45380; 45385; 88305

== ENCOUNTER → 2020-03-24 18:35 | Outpatient (CLI) | payer MEDICARE, MEDICAID, SELFPAY ==
[2020-03-24 18:53] LABS: Basophils # 0.1 K/mm3 (0-0.2); Basophils % 0.4 % (0.1-2.0); Eosinophils % 0.1 % (0.1-12.0); Hematocrit 39.1 % (37.0-47.0); Hemoglobin 12.7 g/dL (12.2-16.2); Lymphocytes # 1.4 K/mm3 (0.7-4.5); Mean Corpuscular HGB Conc 32.6 g/dL (31.8-35.4); Mean Corpuscular Hemoglobin 32.4 pg (27.0-31.2); Mean Corpuscular Volume 99.3 fl (81-99); Mean Platelet Volume 9.3 fl (7.4-10.4); Monocytes # 0.8 K/mm3 (0.1-1.0); Monocytes % 4.4 % (1.7-9.3); Neutrophils # 15.6 K/mm3 (1.8-7.8); Neutrophils % 87.1 % (37.0-80.0); Platelet Count 353 K/mm3 (142-424); Red Blood Count 3.93 M/mm3 (4.20-5.40); Red Cell Distribution Width 13.5 % (11.5-17.5); White Blood Count 17.9 K/mm3 (4.8-10.8)
[2020-03-24 18:58] LABS: MANUAL DIFFERENTIAL MANUAL DIFFERENTIAL (MANUAL DIFF)
[2020-03-24 19:07] LABS: Alanine Aminotransferase 18 U/L (12-78); Albumin Level 4.6 g/dl (3.5-5.0); Albumin/Globulin Ratio 1.8 (1.1-1.8); Alkaline Phosphatase 56 U/L (38-126); Anion Gap 11.9 mEq/L (5-15); Aspartate Amino Transferase 37 U/L (14-36); Bilirubin,Total 0.8 mg/dl (0.2-1.3); Blood Urea Nitrogen 22 mg/dl (7-17); Calcium 10.3 mg/dl (8.4-10.2); Carbon Dioxide 30 mmol/L (22.0-30.0); Chloride 100 mmol/L (98-107); Chol/HDL Ratio 3.6 (1-3.5); Cholesterol 264 mg/dl (140-200); Estimated Glomerular Filt Rate 102 ml/min (>60); GFR (African American) 123 ML/MIN (>60); Globulin 2.5 g/dL (1.3-3.2); Glucose 212 mg/dl (74-100); HDL Cholesterol 74 mg/dl (40-60); Potassium 3.9 mmoL/L (3.5-5.1); Sodium 138 mmol/L (136-145); Total Protein,Serum 7.1 g/dl (6.3-8.2); Triglycerides 286 mg/dl (30-150); VLDL Cholesterol 57 mg/dL (0-40)
[2020-03-24 19:19] LABS: Direct LDL Cholesterol 135.99 mg/dL (100-129)
[2020-03-24 19:25] LABS: 25-OH Vitamin D, Total 15.8 ng/mL (30-100)
[2020-03-24 19:38] LABS: Thyroid Stimulating Hormone 0.18 uIU/mL (0.465-4.68)
[2020-03-24 21:09] LABS: Free T4 (Free Thyroxine) 0.67 ng/dl (0.78-2.19)
[2020-03-24 22:23] LABS: Lymphocytes % 9 % (10-50); Macrocytosis 1+; Monocytes % 6 % (2-9); Neutrophils % 85 % (42-76); Platelet Estimate Normal; RBC Morphology Normal; Total Cells Counted 100
== END ==
PROVIDERS: Visit Provider Emergency Medicine
DX: J44.9 Chronic obstructive pulmonary disease, unspecified (principal); E55.9 Vitamin D deficiency, unspecified; R53.83 Other fatigue; I70.1 Atherosclerosis of renal artery
CPT/HCPCS: 80053; 80061; 82306; 84439; 84443; 85007; 85025

== ENCOUNTER → 2020-04-14 13:41 | Outpatient (CLI) | payer MEDICARE, MEDICAID, SELFPAY ==
[2020-04-14 17:09] LABS: Hemoglobin A1C 5.1 % (4.0-6.0)
[2020-04-14 18:23] LABS: Free T4 (Free Thyroxine) 0.68 ng/dl (0.78-2.19)
[2020-04-14 20:30] LABS: Thyroid Stimulating Hormone 1.65 uIU/mL (0.465-4.68)
== END ==
PROVIDERS: Visit Provider Emergency Medicine
DX: R73.09 Other abnormal glucose (principal); I10 Essential (primary) hypertension; R79.89 Other specified abnormal findings of blood chemistry; K59.00 Constipation, unspecified
CPT/HCPCS: 83036; 84439; 84443

== ENCOUNTER → 2020-05-12 11:55 | Outpatient (CLI) | payer MEDICARE, MEDICAID, SELFPAY ==
[2020-05-12 12:15] LABS: Basophils # 0.1 K/mm3 (0-0.2); Basophils % 0.9 % (0.1-2.0); Eosinophils # 0.1 K/mm3 (0.0-0.4); Eosinophils % 1.9 % (0.1-12.0); Hematocrit 39.8 % (37.0-47.0); Hemoglobin 12.9 g/dL (12.2-16.2); Lymphocytes # 2.3 K/mm3 (0.7-4.5); Lymphocytes % 37.3 % (10-50); Mean Corpuscular HGB Conc 32.4 g/dL (31.8-35.4); Mean Corpuscular Hemoglobin 32.2 pg (27.0-31.2); Mean Corpuscular Volume 99.4 fl (81-99); Mean Platelet Volume 7.5 fl (7.4-10.4); Monocytes # 0.5 K/mm3 (0.1-1.0); Monocytes % 8.6 % (1.7-9.3); Neutrophils # 3.1 K/mm3 (1.8-7.8); Neutrophils % 51.3 % (37.0-80.0); Platelet Count 268 K/mm3 (142-424); Red Blood Count 4.01 M/mm3 (4.20-5.40); Red Cell Distribution Width 13.4 % (11.5-17.5); White Blood Count 6.1 K/mm3 (4.8-10.8)
[2020-05-12 12:20] LABS: ABG Base Excess 3.1 mmol/L (-2.4-2.3); ABG HCO3 27.2 mmhg (22.0-26.0); ABG Oxygen Saturation 96 % (90-100); ABG PCO2 40.5 mmhg (35.0-45.0); ABG PH 7.45 mmol/L (7.35-7.45); ABG PO2 78.9 mmhg (80-100); ABG TCO2 28.4 mmhg (23-27)
[2020-05-12 12:22] LABS: Allen's Test Acceptable; Oxygen ROOM AIR %; Source Right Radial
[2020-05-13 13:39] LABS: Alpha-1-Antitrypsin 127 mg/dL (101-187)
[2020-05-15 06:41] LABS: D001-IgE D pteronyssinus <0.10 kU/L (Class 0); D002-IgE D farinae <0.10 kU/L (Class 0); E001-IgE Cat Dander <0.10 kU/L (Class 0); E005-IgE Dog Dander <0.10 kU/L (Class 0); G002-IgE Bermuda Grass <0.10 kU/L (Class 0); G006-IgE Timothy Grass <0.10 kU/L (Class 0); I006-IgE Cockroach, German <0.10 kU/L (Class 0); Immunoglobulin E, Total 6 IU/mL (6-495); M001-IgE Penicillium chrysogen <0.10 kU/L (Class 0); M002-IgE Cladosporium herbarum <0.10 kU/L (Class 0); M003-IgE Aspergillus fumigatus <0.10 kU/L (Class 0); M006-IgE Alternaria alternata <0.10 kU/L (Class 0); T001-IgE Maple/Box Elder <0.10 kU/L (Class 0); T003-IgE Common Silver Birch <0.10 kU/L (Class 0); T006-IgE Cedar, Mountain <0.10 kU/L (Class 0); T007-IgE Oak, White <0.10 kU/L (Class 0); T008-IgE Elm, American <0.10 kU/L (Class 0); T010-IgE Walnut <0.10 kU/L (Class 0); T011-IgE Maple Leaf Sycamore <0.10 kU/L (Class 0); T014-IgE Cottonwood <0.10 kU/L (Class 0); T015-IgE Ash, White <0.10 kU/L (Class 0); T022-IgE Pecan, Hickory <0.10 kU/L (Class 0); T070-IgE White Mulberry <0.10 kU/L (Class 0); W001-IgE Ragweed, Short <0.10 kU/L (Class 0); W011-IgE Thistle, Russian <0.10 kU/L (Class 0); W014-IgE Pigweed, Common <0.10 kU/L (Class 0); W018-IgE Sheep Sorrel <0.10 kU/L (Class 0)
[2020-05-15 14:09] LABS: E072-IgE Mouse Urine <0.10 kU/L (Class 0)
== END ==
PROVIDERS: Visit Provider Internal Medicine Pulmonary Disease
DX: J44.9 Chronic obstructive pulmonary disease, unspecified (principal); J45.909 Unspecified asthma, uncomplicated
CPT/HCPCS: 36415; 82103; 82785; 82803; 85025; 86003

== ENCOUNTER → 2020-05-22 08:19 | Outpatient (CLI) | payer MEDICARE, MEDICAID, SELFPAY ==
--- NOTE | 2020-05-22 08:20 | CT_ITS ---
PROCEDURE: CT LUNG SCREENING CLINICAL INDICATION: lung cancer screening COMPARISON: CT CHESTWW CT chest wo/w con from 08/14/2018 TECHNIQUE: The exam was performed on a GE Light Speed [address] scanner using 2.90 mGy CTDI. A low dose helical CT CHEST was performed on a multi-detector scanner. All CT scans at the facility use one or more dose reduction, viz: automated exposure control, ma/kV adjustment per patient size (including targeted exams where dose is matched to indication, i.e. head), or iterative reconstruction technique. The LDCT was performed in a facility that meets the criteria for the screening program. Data regarding this exam was submitted to ACR which is an approved registry. The order for this exam indicates that it came as a result of a lung cancer screening counseling shard decision-making visit that included all the elements required of such a visit including smoking cessation. The radiologist interpreting this exam meets the CMS criteria for the LDCT lung cancer screening program. The exam is reported using the Lung-RADS classification scale and reported to the ACR registry. NOTE: This study was performed for the specific purposes of lung cancer screening and is not an alternative to diagnostic chest CT. RADIATION DOSE: CTDI vol(CT dose Index-volume) = 2.90mG DLP (Dose Length Product) = mGcm FINDINGS: There is subsegmental atelectasis in the lingula. Centrilobular and paraseptal emphysematous changes are noted bilaterally. No lobar consolidation, pleural effusions or pneumothorax. Two nodules in the right upper lobe measuring 4 millimeters are noted, demonstrate no significant interval change. Calcified granulomas noted in the right lung. The central tracheobronchial tree is patent. No other suspicious lung nodules. Few calcified lymph nodes noted in the mediastinum and the right hilum. Heart size is normal. No pericardial effusions. Minor atherosclerotic vascular calcification of the thoracic aorta is noted. Small hiatus hernia. Visualized upper abdominal solid viscera appear unremarkable within the limitations of unenhanced study. Multilevel degenerative changes of the thoracic spine are noted. S-shaped scoliosis of the visualized thoracolumbar spine. Old rib fractures on the left. The visualized thyroid gland is unremarkable. IMPRESSION: Lung-RADS Category 2 Benign Appearance or Behavior Follow-up: Follow-up CT thorax in 12 months is recommended. Dictated by: Kelsie Anton 05/22/2020 13:27 Kelsie Anton in [place] 05/22/2020 13:27
== END ==
PROVIDERS: PCP Emergency Medicine; Visit Provider Internal Medicine Pulmonary Disease
DX: Z87.891 Personal history of nicotine dependence (principal); Z12.2 Encounter for screening for malignant neoplasm of respiratory organs
CPT/HCPCS: 71271

== ENCOUNTER → 2020-10-06 08:02 | Outpatient (CLI) | payer MEDICARE, MEDICAID, SELFPAY | PROVIDERS: Visit Provider Surgery | DX: Z01.812 Encounter for preprocedural laboratory examination (principal); Z11.52 Encounter for screening for COVID-19; Z13.810 Encounter for screening for upper gastrointestinal disorder | CPT/HCPCS: U0003 ==

== ENCOUNTER 2020-10-08 07:26 | Day surgery (SDC) | payer MEDICARE, MEDICAID, SELFPAY ==
[2020-10-03 10:19] VITALS: BMI 22.1
[2020-10-08 07:43] VITALS: BP 155/98; PULSE 81; RESP 18; TEMP 36.7; O2SAT 98
--- NOTE | 2020-10-08 08:10 | P.PN_ITS ---
[facility] Anesthesia Checklist - Patient Identification Patient Identification: Arm Band - Structural Data Admitted From: Home Planned Operative Procedure/s: egd Consent for Planned Operative Procedure(s) Verified: Yes Verified Documents: Surgical Consent, History and Physical - NPO Status Verified Time NPO: 00:00 - Additional verifications Anesthesia Reactions: No Hx Blood Transfusions: No Blood Transfusion Reaction: No - Airway Assessment C-Spine Mobility Assessed: Yes (mp2) TMJ Mobility Assessed: Yes Dentition: Poor Dentition (partials removed) - Neurological Assessment Level of Consciousness: Awake, Alert - Anesthesia Plan Anesthesia Risk discussed: Yes Anesthesia Plan: Verified ASA Class: III Anesthesia Type: MAC [facility] History I have reviewed the patient's past medical history: Yes Medical History: Reports:: Anxiety, Chronic Obstructive Pulmonary Disease (COPD), Depression, Hyperlipidemia Denies:: Cancer, Diabetes Mellitus Type 1, Diabetes Mellitus Type 2, Internal Pacemaker, MRSA, Seizures *Have you ever received a pneumonia vaccine?: Yes *Have you received a flu vaccine this season?: Yes (2019) Other Medical History: Reports: Arthritis. Denies: Blood Transfusion Reaction Anesthesia experience/problems:: nac Laterality Cases: Bilateral: Cataract Other Surgeries: Yes: Colonoscopy, Dilation and Curettage, Other. No: Pacemaker Amputation: No Fractures: No - *Social History Last grade of school completed: Some college Smoking Status: Former smoker Tobacco Type: cigarettes # Packs/Day (cigarettes): 1 Alcohol Intake: never Alcohol Intake Frequency:: a few times a week Substance Use Type: denies use *Occupational Status:: disabled Housing: house Household Members: none *Travel in the last 8 weeks: None - Psychiatric History Pschychiatric History:: Reports:: Anxiety, Depression Family Hx:: Diabetes
[2020-10-08 08:30] VITALS: O2SAT 98
--- NOTE | 2020-10-08 08:46 | P.PCN_ITS ---
- Procedure: Date: 10/08/20 Patient Date of :: 1960 Procedure Performed:: Esophago-gastroduodenoscopy with biopsies Indications:: Patient presents as referral from Lincoln Low MD for upper endoscopy. I had seen the patient previously and performed colonoscopy on 02/05/20. She is a 60-year-old female with multiple medical comorbidities including hypertension, renal artery disease, mood disorder , oxygen dependent COPD, tobacco abuse, anxiety, chronic low back pain from kyphosis and scoliosis. She sees pain management physician at outside facility. I had performed a colonoscopy on her April 2019 as screening for positive Cologuard. She was found to have 20 polyps and at least 15 of these were adenomatous with a 20 mm tubulovillous adenoma which was marked with Jennifer ink. Patient states that due to her pain medication she takes for chronic back pain she has developed some significant constipation. Colonoscopy on 02/05/2020 revealed a couple of tubular adenomas and a serrated adenoma. She did not follow-up in the office after her co lonoscopy. She is now referred by Dr. Low for upper endoscopy due to symptoms of heartburn . Patient states that she has a longstanding history of heartburn and dyspepsia type symptoms. This seems to be worse in the evening. She states that at that time I eat the heck out of Tums . She has been started on pantoprazole which seems to help her symptoms somewhat. She is on aspirin, hydrocodone, and prednisone, trazodone. Performing Provider:: Bennie Evans MD Referring Provider:: Lincoln Low MD Sedation:: MAC sedation Procedure:: Patient was taken to endoscopy procedure room. She was positioned in lateral decubitus position. Adequate intravenous sedation was achieved with anesthesia titration of propofol. She required an appreciable amount of propofol for adequate sedation. Olympus endoscope was inserted via the oropharynx. The esophagus was cannulated. There was some focal mild erosive esophagitis in the distal esophagus. Gastroesophageal junction was encountered at approximately 37 cm from the incisors. Stomach was cannulated and insufflated. Retroflexion revealed no evidence of any appreciable hiatal hernia. There was some diffuse moderate nonerosive gastritis. Pylorus was traversed. Duodenum was unremarkable. Endoscope was withdrawn into the gastric lumen. Gastric antral mucosal biopsy was obtained for CLOtest for H. pylori. Several biopsies were obtained for histopathologic analysis. Couple biopsies were obtained at the gastroesophageal junction. Limited biopsy was performed of the area of focal erosive esophagitis. Endoscope was withdrawn. Findings:: Minimal focal erosive esophagitis Moderate diffuse nonerosive gastritis Recommendations:: Treat H. pylori if positive. Follow-up on histopathology. Symptomatology may be medication and lifestyle related Complications:: None immediately apparent Estimated blood obtained (mL): 2
[2020-10-08 08:49] VITALS: BP 128/91; PULSE 74; RESP 18; TEMP 36.7; O2SAT 94
[2020-10-08 08:59] VITALS: BP 141/94; PULSE 75; RESP 18; TEMP 36.7; O2SAT 95
[2020-10-08 09:09] VITALS: BP 145/86; PULSE 76; RESP 18; TEMP 36.7; O2SAT 95
[2020-10-08 09:19] VITALS: BP 140/96; PULSE 72; RESP 18; TEMP 36.7; O2SAT 95
--- NOTE | 2020-10-08 10:24 | P.PN_ITS ---
[facility] Anesthesia Checklist - Patient Identification Patient Identification: Arm Band, Verbal (Name & ) - Structural Data Admitted From: Home Planned Operative Procedure/s: egd Consent for Planned Operative Procedure(s) Verified: Yes Verified Documents: History and Physical - Chart Verification Results Verified: CBC, BMP - Additional verifications Patient : No Anesthesia Reactions: No Hx Blood Transfusions: No Blood Transfusion Reaction: No Cephalosporin Allergy: No Previous Colonoscopy: Yes - Cardiovascular Assessment Heart Sounds: S1 & S2 Pulse Strength: Baseline Pulse Rhythm: Regular Peripheral Edema: No - Airway Assessment C-Spine Mobility Assessed: Yes TMJ Mobility Assessed: Yes Dentition: Good Dentition - Neurological Assessment Level of Consciousness: Awake, Alert, Appropriate Hx Seizures: No Numbness or tingling in extremities: No - Anesthesia Plan Anesthesia Risk discussed: Yes Anesthesia Plan: Verified ASA Class: III Anesthesia Type: MAC [facility] History I have reviewed the patient's past medical history: Yes Medical History: Reports:: Anxiety, Chronic Obstructive Pulmonary Disease (COPD), Depression, Hyperlipidemia Denies:: Cancer, Diabetes Mellitus Type 1, Diabetes Mellitus Type 2, Internal Pacemaker, MRSA, Seizures *Have you ever received a pneumonia vaccine?: Yes *Have you received a flu vaccine this season?: Yes (2019) Other Medical History: Reports: Arthritis. Denies: Blood Transfusion Reaction Anesthesia experience/problems:: nac Laterality Cases: Bilateral: Cataract Other Surgeries: Yes: Colonoscopy, Dilation and Curettage, Other. No: Pacemaker Amputation: No Fractures: No - *Social History Last grade of school completed: Some college Smoking Status: Former smoker Tobacco Type: cigarettes # Packs/Day (cigarettes): 1 Alcohol Intake: never Alcohol Intake Frequency:: a few times a week Substance Use Type: denies use *Occupational Status:: disabled Housing: house Household Members: none *Travel in the last 8 weeks: None - Psychiatric History Pschychiatric History:: Reports:: Anxiety, Depression Family Hx:: Diabetes
== END 2020-10-08 09:22 | disposition home or self-care (01) ==
LOC: OUTP 07:29
PROVIDERS: PCP Emergency Medicine; Visit Provider Surgery
PROC: 0DJ08ZZ Inspection of Upper Intestinal Tract, Via Natural or Artificial Opening Endoscopic (ICD-10-PCS; CPT 43235; principal; 2020-10-08 08:30)
DX: K22.10 Ulcer of esophagus without bleeding (principal); K29.60 Other gastritis without bleeding; M41.9 Scoliosis, unspecified; M40.209 Unspecified kyphosis, site unspecified; J44.9 Chronic obstructive pulmonary disease, unspecified; F41.9 Anxiety disorder, unspecified; I11.0 Hypertensive heart disease with heart failure; I51.89 Other ill-defined heart diseases; I70.1 Atherosclerosis of renal artery; F39 Unspecified mood [affective] disorder; Z72.0 Tobacco use; Z99.81 Dependence on supplemental oxygen
CPT/HCPCS: 43239; 87339; 88305

== ENCOUNTER 2020-12-11 16:20 | Emergency (ER) | payer MEDICARE, MEDICAID, SELFPAY ==
--- NOTE | 2020-12-11 16:27 | XR_ITS ---
PROCEDURE INFORMATION: Exam: XR Right Wrist Exam date and time: 12/11/2020 4:27 PM Age: 60 years old Clinical indication: Injury or trauma; Fall; Blunt trauma (contusions or hematomas); Wrist; Right TECHNIQUE: Imaging protocol: XR Right wrist. Views: 3 or more views. COMPARISON: No relevant prior studies available. FINDINGS: Bones/joints: Fracture through the distal radial metaphysis extending into the epiphysis. Mild comminution. There is moderate impaction and subtle intra-articular extension. The distal fragment and carpal bones is displaced laterally and dorsally relative to the distal radial shaft. There is consider overlap at the fracture. Carpal bones are normally aligned. Soft tissues: Considerable soft tissue swelling at the level of the wrist. IMPRESSION: Distal radius fracture.
[2020-12-11 16:29] VITALS: BP 153/92; PULSE 78; RESP 17; TEMP 36.4; O2SAT 92; BMI 22.6
--- NOTE | 2020-12-11 16:30 | HMH.EDGENADL ---
ED Disposition Clinical Impression: Wrist fracture, right Qualifiers: Encounter type: initial encounter Fracture type: closed Qualified Code(s): S62.101A - Fracture of unspecified carpal bone, right wrist, initial encounter for closed fracture Disposition: Home, Self-Care Condition on Discharge: Fair Instructions: DI for Wrist Fracture, How to Take Care of Your Splint Additional Instructions: Keep splint on until seen by orthopedist Dr. Anton tomorrow. Do not eat or drink after midnight. See Dr. Anton tomorrow in his office at 10 AM for further treatment. Take your usual pain medication as prescribed. Additional instructions for FRACTURED (BROKEN) BONE: Treat your splint like you would a cast: Do not get it wet (cover with a plastic bag while bathing or showering). If the splint feels too tight, you may loosen the luz wrap covering it, but do not remove the splint. You may ice the fracture by applying an ice pack over the top of the splint, without removing the splint. Return to an emergency department immediately if you have uncontrollable pain, loss of feeling or inability to move your injured extremity. Prescriptions: cephALEXin [cephALEXin 500mg capsule*] 500 mg PO Q6H #28 cap Transmission Status: Pending to [facility] Referrals: Dagoberto Low MD [Primary Care Provider] - - Critical Care Critical Care Time: No Attestation: On , the high probability of a clinically significant, sudden or life threatening deterioration of the following system(s) required my full and direct attention, intervention and personal management. The time I documented below is in addition to time spent performing reported procedures but includes the following listed in this critical care notation. Medical Decision Making - Tino Inquiry Pt receiving controlled substance: Yes Tino was queried for this patient: Yes Risks and benefits of using a controlled substance: were not discussed with pt by me Vital Signs: 12/11/20 16:29 Temperature 97.6 F Temperature Source Oral Pulse Rate [Left Radial] 78 Respiratory Rate 17 Blood Pressure [Left Arm] 153/92 H Blood Pressure Mean [Left Arm] 112 Blood Pressure Source [Left Arm] Automatic Cuff Blood Pressure Position [Left Arm] Sitting 02 Sat by Pulse Oximetry 92 L Oxygen Delivery Method Room Air Orders (Tests/Meds): ED MEDICATIONS Discontinued Medications Generic Name Dose Route Start Last Admin Trade Name Freq PRN Reason Stop Dose Admin Cephalexin HCl 500 mg 12/11/20 16:55 12/11/20 17:10 Cephalexin 500mg Capsule PO 12/11/20 16:56 500 mg ONCE ONE Administration Hydromorphone HCl 1 mg 12/11/20 16:36 12/11/20 16:55 Hydromorphone 2mg/Ml Syringe IM 12/11/20 16:37 1 mg ONCE ONE Administration Ondansetron HCl 4 mg 12/11/20 16:36 12/11/20 16:50 Ondansetron 4mg/2ml Vial IM 12/11/20 16:37 4 mg ONCE ONE Administration Tetanus/Diphtheria Toxoids 0.5 ml 12/11/20 17:00 12/11/20 17:10 Tetanus-Diphth Toxoid, Adult 0.5ml Syr IM 12/11/20 17:01 0.5 ml .ONCE ONE Administration - Physician Consults Physician Consulted: Desean Time: 16:54 Reason -: Orthopedic Eval/Care Comment/Response: Discussed case, he has reviewed x-rays. Abrasions are on the ulnar aspect where there is not an underlying fracture, therefore he does not feel this is an open fracture that needs emergent surgical attention. He requests that I pull on it and apply splint. Follow-up in his office tomorrow. Oral Keflex. Additional Consult: Desean Time: 17:45 Reason -: Orthopedic Eval/Care Comment/Response: Advised that no significant reduction was able to be obtained with manual traction. He states it is okay to leave splinted at as is in current position. See him in his office tomorrow at 10 AM, n.p.o. after midnight. General Adult HPI - General Stated complaint: rt arm broken from fall Time Seen by Provider: 12/11/20 16:30 - H
--- NOTE | 2020-12-11 16:31 | XR_ITS ---
PROCEDURE INFORMATION: Exam: XR Right Hand Exam date and time: 12/11/2020 4:31 PM Age: 60 years old Clinical indication: Injury or trauma; Fall; Blunt trauma (contusions or hematomas); Hand; Right TECHNIQUE: Imaging protocol: XR Right hand. Views: 1 or 2 views. COMPARISON: CR XR FOREARM RT 2V 12/11/2020 4:33 PM FINDINGS: Bones/joints: Distal radius fracture involving the metaphysis and epiphysis. There is considerable overlap and displacement at the fracture site. Carpal bone alignment is normal. No additional fracture. Soft tissues: Considerable soft tissue swelling at the level of the wrist. IMPRESSION: Distal radius fracture.
--- NOTE | 2020-12-11 16:31 | XR_ITS ---
PROCEDURE INFORMATION: Exam: XR Right Forearm Exam date and time: 12/11/2020 4:31 PM Age: 60 years old Clinical indication: Injury or trauma; Fall; Blunt trauma (contusions or hematomas); Arm, lower; Right TECHNIQUE: Imaging protocol: XR Right forearm. Views: 2 views. COMPARISON: CR XR WRIST RT MIN 3V 12/11/2020 4:29 PM FINDINGS: Bones/joints: Comminuted, displaced and overlapped fracture of the distal radius involving the metaphysis and epiphysis. Possible intra-articular extension. Soft tissues: Considerable soft tissue swelling at the level of the wrist. IMPRESSION: Distal radius fracture.
--- NOTE | 2020-12-11 16:37 | PC.NURSE ---
Pt is being taken to xray
--- NOTE | 2020-12-11 16:46 | PC.NURSE ---
Dr. Anton paged
--- NOTE | 2020-12-11 16:48 | PC.NURSE ---
Pt returned from rad. Dr Abdi interior design professional for Dr Low. He is paged at this time.
[2020-12-11 18:15] VITALS: BP 125/100; PULSE 88; RESP 17; TEMP 36.8; O2SAT 90
== END 2020-12-11 18:15 | disposition home or self-care (01) ==
PROVIDERS: Emergency Provider Emergency Medicine; PCP Emergency Medicine
DX: S52.511A Displaced fracture of right radial styloid process, initial encounter for closed fracture (principal); S60.811A Abrasion of right wrist, initial encounter; W01.0XXA Fall on same level from slipping, tripping and stumbling without subsequent striking against object, initial encounter; Y92.019 Unspecified place in single-family (private) house as the place of occurrence of the external cause; F10.10 Alcohol abuse, uncomplicated; F41.8 Other specified anxiety disorders; E78.5 Hyperlipidemia, unspecified; Z87.891 Personal history of nicotine dependence; Z23 Encounter for immunization
CPT/HCPCS: 29125; 73090; 73110; 73120; 90471; 90714; 96372; 99282; J2405

== ENCOUNTER → 2020-12-12 11:15 | Outpatient (CLI) | payer MEDICARE, MEDICAID, SELFPAY ==
[2020-12-12 11:18] LABS: Coronavirus 19, PCR Not Detected (NotDetected); Influenza A, PCR Not Detected (NotDetected); Influenza B, PCR Not Detected (NotDetected)
--- NOTE | 2020-12-12 11:27 | XR_ITS ---
PROCEDURE: XR CHEST 2V CLINICAL HISTORY: hypertension COMPARISON: CR CXR CHEST(2 VIEWS-NOT PORTABLE) from 12/11/2015 CR CXR CHEST(2 VIEWS-NOT PORTABLE) from 01/18/2016 CR CXR CHEST(2 VIEWS-NOT PORTABLE) from 03/15/[address] chest wo/w con from 08/14/2018 FINDINGS: The cardiomediastinal silhouette and pulmonary vascularity are within normal limits. Lungs are clear of acute infiltrate. No suspicious nodule evident. Degenerative changes at the thoracolumbar junction with thoracic scoliosis convex right and lumbar scoliosis convex left. IMPRESSION: No acute findings. Dictated by: Peter Morrissey MD 12/12/2020 13:04 Peter Morrissey MD in [facility] 12/12/2020 13:04
[2020-12-12 11:48] LABS: Basophils # 0.1 K/mm3 (0-0.2); Basophils % 0.8 % (0.1-2.0); Eosinophils # 0.1 K/mm3 (0.0-0.4); Eosinophils % 1.8 % (0.1-12.0); Hematocrit 42.3 % (37.0-47.0); Hemoglobin 13.8 g/dL (12.2-16.2); Lymphocytes # 2.8 K/mm3 (0.7-4.5); Mean Corpuscular HGB Conc 32.6 g/dL (31.8-35.4); Mean Corpuscular Hemoglobin 33.4 pg (27.0-31.2); Mean Corpuscular Volume 102.4 fl (81-99); Monocytes # 0.6 K/mm3 (0.1-1.0); Monocytes % 7.5 % (1.7-9.3); Neutrophils # 4.1 K/mm3 (1.8-7.8); Neutrophils % 53.9 % (37.0-80.0); Platelet Count 347 K/mm3 (142-424); Red Blood Count 4.13 M/mm3 (4.20-5.40); Red Cell Distribution Width 12.7 % (11.5-17.5); White Blood Count 7.7 K/mm3 (4.8-10.8)
--- NOTE | 2020-12-12 11:55 | ECG_ITS ---
APPROVED REPORT Exam: Resting ECG HR:79 bpm ECG Measurements Heart Rate 79 AXES MT 158 P 62 QRSd 84 QRS 68 QT 396 T 59 QTc 454 Conclusion Normal sinus rhythm Low voltage QRS RSR' or QR pattern in V1 suggests right ventricular conduction delay Cannot rule out Anterior infarct, age undetermined Abnormal ECG Electronically signed by : Alexey Pedraza MD 12/13/2020 09:12:58
[2020-12-12 12:23] LABS: Chloride 96 mmol/L (98-107); Potassium 3.9 mmoL/L (3.5-5.1); Sodium 140 mmol/L (136-145)
[2020-12-12 12:25] LABS: Alanine Aminotransferase 38 U/L (12-78); Aspartate Amino Transferase 45 U/L (14-36); Blood Urea Nitrogen 7 mg/dl (7-17); Estimated Glomerular Filt Rate 162 ml/min (>60); GFR (African American) 196 ML/MIN (>60)
[2020-12-12 12:26] LABS: Albumin/Globulin Ratio 1.9 (1.1-1.8); Alkaline Phosphatase 85 U/L (38-126); Anion Gap 17.9 mEq/L (5-15); Bilirubin,Total 0.6 mg/dl (0.2-1.3); Calcium 10.2 mg/dl (8.4-10.2); Carbon Dioxide 30 mmol/L (22.0-30.0); Globulin 2.7 g/dL (1.3-3.2); Glucose 102 mg/dl (74-100); Total Protein,Serum 7.7 g/dl (6.3-8.2)
== END ==
PROVIDERS: Visit Provider Orthopaedic Surgery
DX: Z01.818 Encounter for other preprocedural examination (principal)
CPT/HCPCS: 36415; 71046; 80053; 85025; 93005; C9803; U0003; U0005

== ENCOUNTER 2020-12-12 11:57 | Day surgery (SDC) | payer MEDICARE, MEDICAID, SELFPAY ==
[2020-12-12] VITALS (10 sets, daily range): BP systolic 108–167; BP diastolic 57–99; PULSE 69–112; RESP 18–20; TEMP 36.9–37.7; O2SAT 86–95; BMI 22.6
--- NOTE | 2020-12-12 13:06 | HMH.ANESCL ---
[facility] Anesthesia Checklist - Patient Identification Patient Identification: Arm Band - Structural Data Admitted From: Home Planned Operative Procedure/s: Closed reduction wrist Consent for Planned Operative Procedure(s) Verified: Yes - NPO Status Verified Time NPO: 00:00 - Additional verifications Anesthesia Reactions: No Hx Blood Transfusions: No Blood Transfusion Reaction: No - Airway Assessment C-Spine Mobility Assessed: Yes TMJ Mobility Assessed: Yes Dentition: Poor Dentition (Explained risks of damage. Patient verbalized understanding) - Neurological Assessment Level of Consciousness: Awake Hx Seizures: No Numbness or tingling in extremities: No - Anesthesia Plan Anesthesia Risk discussed: Yes Anesthesia Plan: Verified ASA Class: III Anesthesia Type: General [facility] History I have reviewed the patient's past medical history: Yes Medical History: Reports:: Anxiety, Chronic Obstructive Pulmonary Disease (COPD), Depression, Hyperlipidemia Denies:: Cancer, Diabetes Mellitus Type 1, Diabetes Mellitus Type 2, Internal Pacemaker, MRSA, Seizures *Have you ever received a pneumonia vaccine?: Yes *Have you received a flu vaccine this season?: Yes Other Medical History: Reports: Arthritis, Other (Scoliosis). Denies: Blood Transfusion Reaction Anesthesia experience/problems:: None Laterality Cases: Bilateral: Lumpectomy Other Surgeries: Yes: Colonoscopy, Dilation and Curettage, Other. No: Pacemaker Amputation: No Fractures: No - *Social History Last grade of school completed: Advanced degree Smoking Status: Former smoker Tobacco Type: cigarettes # Packs/Day (cigarettes): 2 #Yrs smoked (if former smoker): 40 Alcohol Intake: never Alcohol Intake Frequency:: a few times a week Substance Use Type: denies use *Occupational Status:: disabled Housing: apartment Household Members: none *Travel in the last 8 weeks: None - Psychiatric History Pschychiatric History:: Reports:: Anxiety, Depression Family Hx:: No significant family history
--- NOTE | 2020-12-12 14:31 | P.PN_ITS ---
[facility] Anesthesia Checklist - Patient Identification Patient Identification: Arm Band, Verbal (Name & ) - Structural Data Admitted From: Home Planned Operative Procedure/s: ORIF Right Wrist Consent for Planned Operative Procedure(s) Verified: Yes Verified Documents: Surgical Consent - NPO Status Verified Time NPO: 00:00 - Additional verifications Anesthesia Reactions: No Hx Blood Transfusions: No Blood Transfusion Reaction: No - Cardiovascular Assessment Heart Sounds: S1 & S2 Pulse Rhythm: Regular - Airway Assessment C-Spine Mobility Assessed: Yes TMJ Mobility Assessed: Yes Dentition: Partials - Anesthesia Plan Anesthesia Risk discussed: Yes ASA Class: III Anesthesia Type: General [facility] History Medical History: Reports:: Anxiety, Chronic Obstructive Pulmonary Disease (COPD), Depression, Hyperlipidemia Denies:: Cancer, Diabetes Mellitus Type 1, Diabetes Mellitus Type 2, Internal Pacemaker, MRSA, Seizures *Have you ever received a pneumonia vaccine?: Yes *Have you received a flu vaccine this season?: Yes Other Medical History: Reports: Arthritis, Other (Scoliosis). Denies: Blood Transfusion Reaction Anesthesia experience/problems:: None Laterality Cases: Bilateral: Lumpectomy Other Surgeries: Yes: Colonoscopy, Dilation and Curettage, Other. No: Pacemaker Amputation: No Fractures: No - *Social History Last grade of school completed: Advanced degree Smoking Status: Former smoker Tobacco Type: cigarettes # Packs/Day (cigarettes): 2 #Yrs smoked (if former smoker): 40 Alcohol Intake: never Alcohol Intake Frequency:: a few times a week Substance Use Type: denies use *Occupational Status:: disabled Housing: apartment Household Members: none *Travel in the last 8 weeks: None - Psychiatric History Pschychiatric History:: Reports:: Anxiety, Depression Family Hx:: No significant family history
--- NOTE | 2020-12-12 16:42 | XR_ITS ---
PROCEDURE: XR WRIST RT 2V CLINICAL INDICATION: CLOSED REDUCTION, EXTERNAL FIX COMPARISON: CR XR WRIST RT MIN 3V from 12/11/2020 FINDINGS: Fluoroscopy time: 1.6 minutes. 2 images are submitted during placement of an external fixator stabilizing distal radial and ulnar fracture with reduced ulnar dislocation with good alignment of the fracture fragments. Antibiotic beads are present medially at the distal ulna. IMPRESSION: Status post external fixator placement with fluoroscopic assistance Dictated by: Peter Morrissey MD 12/12/2020 16:54 Peter Morrissey MD in [place] 12/12/2020 16:54
--- NOTE | 2020-12-12 17:20 | P.PN_ITS ---
[facility] Anesthesia Record Part I Intake, IV Amount: 1,200 Estimated blood loss (mL): 20 Urine output (mL): 0 Blood Pressure: 108/57 SaO2: 93 Pulse Rate: 112 Respiratory Rate: 18 Temperature: 99.1 F Patient is:: Drowsy Stable to PACU at:: 17:24
--- NOTE | 2020-12-12 19:47 | HMH.OPNOTE ---
Date of procedure: 12/12/20 Pre-op Diagnosis:: 1. Grade 1 open Colles' fracture, right wrist 2. Grade 1 open ulnar styloid fracture, right wrist Post-op Diagnosis:: Same Procedure performed:: 1. Wound debridement and irrigation, right wrist 2. Closed reduction fracture distal radius, right wrist 3. Application of external fixator (WRIST GORDON), right wrist Surgeon:: Dakotah Anton MD Roll Repairer(s):: Shikha Salinas PA-C SHRIMP PEELING MACHINE TENDER:: Other (Alfredo Breen) Anesthesia: LMA Estimated blood loss (mL): 10 Clinical Note:: Patient is a 60-year-old [id number] female who sustained a closed displaced fracture of her RIGHT distal radius (Colles fracture) along with a grade 1 open displaced fracture of the right ulnar styloid process when she fell yesterday evening. The distal radius fracture is significantly displaced, comminuted and unstable. Following a detailed discussion with the patient about the management options including both nonsurgical and surgical, she elected to proceed with surgical remediation. I have seen the patient earlier today in the office and prior to surgery, I again met the patient in the preoperative area and discussed the details of the procedure, risks and benefits, alternatives and the expected outcomes. The complications discussed include but are not limited to infection, bleeding, injury to nerves, blood vessels and tendons, pin tract infection, malunion, nonunion, loss of fixation, stiffness, CRPS as well as the anesthetic complications including heart attack, stroke and even . She expressed a full understanding and wished to proceed with surgical remediation. She has multiple medical problems including hypertension, diastolic dysfunction, COPD, chronic tobacco use and scoliosis. She has history of chronic and excessive alcohol intake as well as history of long-term pain medication usage. She states she lives at home by herself. The operative side was marked and initialed by me. Patient understood the risks, agreed to proceed with surgery, signed the consent form and no guarantees or assurances were given or implied. Please refer to my office note for full details. Operative findings:: Displaced, comminuted and unstable fracture of the RIGHT distal radius and a grade 1 open displaced fracture of the RIGHT ulnar styloid process. There is a small wound measuring about 0.5 x 1 cm over the ulnar head with fracture line steroid process. There are superficial abrasions over the ulnar aspect of the forearm and wrist. No wounds noted over the distal radius. There is no obvious contamination or foreign body material in the wound. Subluxation of distal radioulnar joint was noted as seen on the x-ray and it was well reduced after application of the wrist gordon external fixator. Implant: WristJack external fixator 3 mm long threaded pins x3 3 mm short threaded pin x1 Operative note:: 6 L of normal saline wash in total Dilute Betadine lavage Russian finger traps Antibiotic beads-5 g of Osteoboost putty, 1 g of vancomycin and 80 mg of gentamicin Culture swabs- aerobic and anaerobic The wound over the ulnar styloid process was loosely approximated with a single 4-0 Ethilon suture 4-0 Ethilon sutures to skin 22 cc of 0.5% Marcaine with epinephrine local infiltration Implant: WristJack external fixator 3 mm long threaded pins x3 3 mm short threaded pin x1 Condition: stable Disposition: PACU Specimens:: Aerobic and anaerobic culture swabs from the wound over the ulnar styloid process Complications:: None
--- NOTE | 2020-12-15 08:37 | HMH.ANESII ---
[facility] Anesthesia Record Part II Discharge Time: 17:40 Destination: Surgical Day Care (OP Surgery) PACU nurse assessment reviewed?: Yes Patient Condition:: Good Anesthesia Complications:: None Swallowing reflex intact?: Yes Cyanosis?: No Blood Pressure: 136/80 Pulse Rate: 95 Temperature: 99.9 F Mental Status: Alert & Oriented Pain level:: 0 Nausea and/or vomitting:: None Intake, IV Amount: 0
[2020-12-15 08:38] VITALS: BP 136/80; PULSE 95; TEMP 37.7
== END 2020-12-12 18:15 | disposition home or self-care (01) ==
PROVIDERS: PCP Emergency Medicine; Visit Provider Orthopaedic Surgery
DX: S52.611B Displaced fracture of right ulna styloid process, initial encounter for open fracture type I or II (principal); Z20.822 Contact with and (suspected) exposure to COVID-19; S52.531A Colles' fracture of right radius, initial encounter for closed fracture; W01.0XXA Fall on same level from slipping, tripping and stumbling without subsequent striking against object, initial encounter; Y92.480 Sidewalk as the place of occurrence of the external cause
CPT/HCPCS: 20690; 25605; C1713; 36415; 71046; 73100; 76000; 80053; 85025; 87070; 87075; 87205; 93005; 96374; C9803; J2405; J3370; U0003; U0005

== ENCOUNTER → 2020-12-17 13:34 | Outpatient (CLI) | payer MEDICARE, MEDICAID, SELFPAY ==
--- NOTE | 2020-12-17 13:38 | XR_ITS ---
PROCEDURE INFORMATION: Exam: XR Right Wrist Exam date and time: 12/17/2020 1:38 PM Age: 60 years old Clinical indication: Pain; Wrist; Right; Prior surgery; Surgery date: <1 month; Additional info: Sp right wrist external fixator dos 12/12/20 TECHNIQUE: Imaging protocol: XR Right wrist. Views: 3 or more views. COMPARISON: SD XR WRIST RT 2V 12/12/2020 4:42 PM FINDINGS: Bones/joints: External fixator in place in the distal forearm and hand.. There is a healing distal radial fracture with fracture fragments in good alignment. Ulnar styloid fracture in acceptable alignment.. Soft tissues: Radio-opaque beads in the soft tissues of the wrist IMPRESSION: 1. External fixator in place in the distal forearm and hand.. 2. There is a healing distal radial fracture with fracture fragments in good alignment. 3. Ulnar styloid fracture in acceptable alignment..
--- NOTE | 2020-12-17 14:48 | XR_ITS ---
PROCEDURE INFORMATION: Exam: XR Right Wrist Exam date and time: 12/17/2020 2:48 PM Age: 60 years old Clinical indication: Pain; Wrist; Right; Prior surgery; Surgery date: <1 month; Additional info: Sp closed reduction with wrist maggie TECHNIQUE: Imaging protocol: XR Right wrist. Views: 3 or more views. COMPARISON: CR XR WRIST RT MIN 3V 12/17/2020 1:44 PM FINDINGS: Bones/joints: External fixator extends from the midshaft of the radius to the hand. Distal radius fracture fragment is in good alignment. Soft tissues: Radio opaque soft tissue densities in the region of the screws and the ulnar styloid may represent antibiotic therapy IMPRESSION: External fixator extends from the midshaft of the radius to the hand. Distal radius fracture fragment is in good alignment.
== END ==
PROVIDERS: PCP Emergency Medicine; Visit Provider Orthopaedic Surgery
DX: Z09 Encounter for follow-up examination after completed treatment for conditions other than malignant neoplasm (principal); S62.101D Fracture of unspecified carpal bone, right wrist, subsequent encounter for fracture with routine healing
CPT/HCPCS: 73110

== ENCOUNTER → 2020-12-24 10:58 | Outpatient (CLI) | payer MEDICARE, MEDICAID, SELFPAY ==
--- NOTE | 2020-12-24 11:02 | XR_ITS ---
PROCEDURE: XR WRIST RT MIN 3V CLINICAL INDICATION: sp RT wrist sx with wrist maggie COMPARISON: CR XR WRIST RT MIN 3V from 12/11/2020 CR XR WRIST RT 2V from 12/12/2020 CR XR WRIST RT MIN 3V from 12/17/2020 CR XR WRIST RT MIN 3V from 12/17/2020 FINDINGS: Status post external fixator placement extending from the midshaft of the radius with a screw at the base of the 2nd and 3rd metacarpal and 1 at the distal aspect of the 2nd metacarpal. Comminuted distal radial fracture once again noted with mild lateral displacement of the distal fracture fragment by approximately 5 mm not significantly changed. Minimally displaced ulnar styloid process fracture with dissolving antibiotic beads at the ulnar styloid process fracture and along the midshaft of the radius laterally. Other findings:None. IMPRESSION: No change status post external fixator placement stabilizing distal radial and ulnar fractures as described above Dictated by: Peter Morrissey MD 12/24/2020 13:20 Peter Morrissey MD in [place] 12/24/2020 13:20
== END ==
PROVIDERS: PCP Emergency Medicine; Visit Provider Orthopaedic Surgery
DX: Z09 Encounter for follow-up examination after completed treatment for conditions other than malignant neoplasm (principal); S52.531D Colles' fracture of right radius, subsequent encounter for closed fracture with routine healing; S52.611D Displaced fracture of right ulna styloid process, subsequent encounter for closed fracture with routine healing
CPT/HCPCS: 73110

== ENCOUNTER → 2020-12-31 12:07 | Outpatient (CLI) | payer MEDICARE, MEDICAID, SELFPAY ==
--- NOTE | 2020-12-31 12:11 | XR_ITS ---
PROCEDURE: XR WRIST RT MIN 3V CLINICAL INDICATION: sp rt wrist sx with wrist maggie, sx 12/12/20 COMPARISON: No exams were available for comparison FINDINGS: Status post external fixation distal radial fracture. There is anterior lateral displacement of the distal fracture fragment by approximately 14 mm. This has increased compared to the previous exam. Fracture line is still visible. Hyperdensity noted medial to the distal ulna consistent with dissolving antibiotic beads. Ulnar styloid process fracture once again noted slightly distracted as before. Antibiotic beads are present along the radial aspect of the fixator device. IMPRESSION: Status post external fixation of distal radius and ulnar fracture with increased anterior lateral displacement of the distal radial fracture fragment. Dictated by: Peter Morrissey MD 12/31/2020 14:03 Peter Morrissey MD in [place] 12/31/2020 14:03
== END ==
PROVIDERS: PCP Emergency Medicine; Visit Provider Orthopaedic Surgery
DX: Z09 Encounter for follow-up examination after completed treatment for conditions other than malignant neoplasm (principal); S52.531D Colles' fracture of right radius, subsequent encounter for closed fracture with routine healing; S52.611D Displaced fracture of right ulna styloid process, subsequent encounter for closed fracture with routine healing
CPT/HCPCS: 73110

== ENCOUNTER → 2021-01-07 10:29 | Outpatient (CLI) | payer MEDICARE, MEDICAID, SELFPAY ==
--- NOTE | 2021-01-07 10:32 | XR_ITS ---
PROCEDURE: XR WRIST RT MIN 3V CLINICAL INDICATION: sp rt wrist sx with wrist maggie 12/12/20 COMPARISON: CR XR WRIST RT MIN 3V from 12/17/2020 CR XR WRIST RT MIN 3V from 12/17/2020 CR XR WRIST RT MIN 3V from 12/24/2020 CR XR WRIST RT MIN 3V from 12/31/2020 FINDINGS: External fixator remains in place as previously described not significantly changed. Mildly displaced distal radial fracture is present. There is anterolateral displacement of the distal fracture fragment by 10 mm previously approximately 14 mm. Fracture line remains visible laterally and centrally with decreased prominence of the fracture line medially. Minimally distracted ulnar styloid process fracture noted with soft tissue calcification along the dorsal medial aspect of the distal ulna . Dissolving antibiotic beads along the proximal fixator screws IMPRESSION: Status post external fixation distal radial fracture with anterolateral displacement of the distal fracture fragment slightly less compared to the previous exam with possible healing medially. Dictated by: Peter Morrissey MD 01/07/2021 18:58 Peter Morrissey MD in [place] 01/07/2021 18:58
== END ==
PROVIDERS: PCP Emergency Medicine; Visit Provider Orthopaedic Surgery
DX: Z09 Encounter for follow-up examination after completed treatment for conditions other than malignant neoplasm (principal); S52.531D Colles' fracture of right radius, subsequent encounter for closed fracture with routine healing; S52.611D Displaced fracture of right ulna styloid process, subsequent encounter for closed fracture with routine healing
CPT/HCPCS: 73110

== ENCOUNTER → 2021-01-14 09:15 | Outpatient (CLI) | payer MEDICARE, MEDICAID, SELFPAY ==
--- NOTE | 2021-01-14 09:19 | XR_ITS ---
PROCEDURE: XR WRIST RT MIN 3V CLINICAL INDICATION: RT wrist with ruthy serrano 12/12/20 COMPARISON: CR XR WRIST RT MIN 3V from 12/17/2020 CR XR WRIST RT MIN 3V from 12/24/2020 CR XR WRIST RT MIN 3V from 12/31/2020 CR XR WRIST RT MIN 3V from 01/07/2021 FINDINGS: Displaced right distal radial fracture once again noted with external fixator in place. Fracture line is still visible. Ulnar styloid process fracture also noted unchanged. Residual from antibiotic beads noted along the proximal aspect of the fixator and at the ulnar region. IMPRESSION: No change status post external fixation distal radial and ulnar fractures. Dictated by: Peter Morrissey MD 01/14/2021 15:09 Peter Morrissey MD in [place] 01/14/2021 15:09
== END ==
PROVIDERS: PCP Emergency Medicine; Visit Provider Orthopaedic Surgery
DX: Z09 Encounter for follow-up examination after completed treatment for conditions other than malignant neoplasm (principal); S52.531D Colles' fracture of right radius, subsequent encounter for closed fracture with routine healing; S52.611D Displaced fracture of right ulna styloid process, subsequent encounter for closed fracture with routine healing
CPT/HCPCS: 73110

== ENCOUNTER → 2021-02-04 10:56 | Outpatient (CLI) | payer MEDICARE, MEDICAID, SELFPAY ==
--- NOTE | 2021-02-04 10:59 | XR_ITS ---
PROCEDURE: XR WRIST RT MIN 3V CLINICAL INDICATION: sp RT wrist with ruthy serrano 12/12/20 COMPARISON: CR XR WRIST RT MIN 3V from 12/24/2020 CR XR WRIST RT MIN 3V from 12/31/2020 CR XR WRIST RT MIN 3V from 01/07/2021 CR XR WRIST RT MIN 3V from 01/14/2021 FINDINGS: External fixator remains in place not significantly changed. Distal radial and ulnar fractures once again noted. There is anterolateral displacement of the distal radial fragment by approximately 9 mm not significantly changed. Fracture line is still visible with some developing callus formation noted anteriorly. Antibiotic bead residual once again noted as before. Ulnar styloid process fracture unchanged. IMPRESSION: Overall no change status post external fixator placement. Radial fracture line is still visible with some developing callus formation anterior laterally Dictated by: Peter Morrissey MD 02/04/2021 12:40 Peter Morrissey MD in [place] 02/04/2021 12:40
[2021-02-04 12:45] LABS: Basophils # 0.1 K/mm3 (0-0.2); Basophils % 1.2 % (0.1-2.0); Eosinophils # 0.2 K/mm3 (0.0-0.4); Eosinophils % 3.5 % (0.1-12.0); Hematocrit 35.4 % (37.0-47.0); Hemoglobin 12.4 g/dL (12.2-16.2); Lymphocytes % 51.8 % (10-50); Mean Corpuscular HGB Conc 35.2 g/dL (31.8-35.4); Mean Corpuscular Hemoglobin 32.8 pg (27.0-31.2); Mean Corpuscular Volume 93.3 fl (81-99); Monocytes # 0.5 K/mm3 (0.1-1.0); Monocytes % 7.7 % (1.7-9.3); Neutrophils # 2.1 K/mm3 (1.8-7.8); Neutrophils % 35.7 % (37.0-80.0); Platelet Count 308 K/mm3 (142-424); Red Blood Count 3.79 M/mm3 (4.20-5.40); Red Cell Distribution Width 13.4 % (11.5-17.5); White Blood Count 5.8 K/mm3 (4.8-10.8)
[2021-02-04 12:54] LABS: MANUAL DIFFERENTIAL MANUAL DIFFERENTIAL (MANUAL DIFF)
[2021-02-04 14:08] LABS: Eosinophils % 6 % (0-3); Lymphocytes % 49 % (10-50); Monocytes % 8 % (2-9); Neutrophils % 36 % (42-76); Platelet Estimate Normal; Total Cells Counted 100
[2021-02-04 14:13] LABS: Alanine Aminotransferase 19 U/L (12-78); Albumin Level 4.5 g/dl (3.5-5.0); Albumin/Globulin Ratio 1.9 (1.1-1.8); Alkaline Phosphatase 109 U/L (38-126); Anion Gap 11.8 mEq/L (5-15); Aspartate Amino Transferase 35 U/L (14-36); Bilirubin,Total 0.5 mg/dl (0.2-1.3); Blood Urea Nitrogen 18 mg/dl (7-17); Calcium 9.9 mg/dl (8.4-10.2); Carbon Dioxide 33 mmol/L (22.0-30.0); Chloride 98 mmol/L (98-107); Estimated Glomerular Filt Rate 125 ml/min (>60); GFR (African American) 152 ML/MIN (>60); Globulin 2.4 g/dL (1.3-3.2); Glucose 91 mg/dl (74-100); Potassium 3.8 mmoL/L (3.5-5.1); Sodium 139 mmol/L (136-145); Total Protein,Serum 6.9 g/dl (6.3-8.2)
== END ==
PROVIDERS: PCP Family Medicine; Visit Provider Orthopaedic Surgery
DX: Z09 Encounter for follow-up examination after completed treatment for conditions other than malignant neoplasm (principal); Z01.818 Encounter for other preprocedural examination
CPT/HCPCS: 36415; 73110; 80053; 85007; 85025; C9803; U0003; U0005

== ENCOUNTER → 2021-02-04 12:11 | Outpatient (CLI) | payer MEDICARE, MEDICAID, SELFPAY | PROVIDERS: Visit Provider Orthopaedic Surgery | DX: Z01.812 Encounter for preprocedural laboratory examination (principal); Z11.52 Encounter for screening for COVID-19; S52.571 Other intraarticular fracture of lower end of right radius; S52.611 Displaced fracture of right ulna styloid process; I10 Essential (primary) hypertension | CPT/HCPCS: 36415; 73110; 80053; 85007; 85025; C9803; U0003; U0005 ==

== ENCOUNTER 2021-02-06 08:27 | Day surgery (SDC) | payer MEDICARE, MEDICAID, SELFPAY ==
[2021-02-04 14:40] VITALS: BMI 23.4
[2021-02-06 09:19] VITALS: BP 158/100; PULSE 75; RESP 18; TEMP 37.1; O2SAT 94
--- NOTE | 2021-02-06 10:07 | P.PN_ITS ---
[facility] Anesthesia Checklist - Patient Identification Patient Identification: Arm Band - Structural Data Admitted From: Home Planned Operative Procedure/s: Hardware removal R. wrist Consent for Planned Operative Procedure(s) Verified: Yes - NPO Status Verified Time NPO: 00:00 - Additional verifications Anesthesia Reactions: No Hx Blood Transfusions: No Blood Transfusion Reaction: No - Airway Assessment C-Spine Mobility Assessed: Yes TMJ Mobility Assessed: Yes Dentition: Poor Dentition (Multiple missing) - Neurological Assessment Level of Consciousness: Awake Hx Seizures: No Numbness or tingling in extremities: No - Anesthesia Plan Anesthesia Risk discussed: Yes Anesthesia Plan: Verified ASA Class: III Anesthesia Type: MAC [facility] History I have reviewed the patient's past medical history: Yes Medical History: Reports:: Anxiety, Chronic Obstructive Pulmonary Disease (COPD), Depression, Gastroesophageal Reflux Disease(GERD), Hyperlipidemia, Hy pertension Denies:: Cancer, Diabetes Mellitus Type 1, Diabetes Mellitus Type 2, Internal Pacemaker, MRSA, Seizures *Have you ever received a pneumonia vaccine?: Yes *Have you received a flu vaccine this season?: Yes Other Medical History: Reports: Arthritis, Other. Denies: Blood Transfusion Reaction Anesthesia experience/problems:: None Laterality Cases: Right: Other, Bilateral: Cataract, Lumpectomy, Tonsillectomy Other Surgeries: Yes: Colonoscopy, Dilation and Curettage, Other. No: Pacemaker Amputation: No Fractures: Yes (right wrist) - *Social History Last grade of school completed: High school graduate Smoking Status: Former smoker Tobacco Type: cigarettes # Packs/Day (cigarettes): 2 #Yrs smoked (if former smoker): 40 Alcohol Intake: never Alcohol Intake Frequency:: a few times a week Substance Use Type: denies use *Occupational Status:: disabled Housing: apartment Household Members: none *Travel in the last 8 weeks: None - Psychiatric History Pschychiatric History:: Reports:: Anxiety, Depression Family Hx:: No significant family history
[2021-02-06 13:00] VITALS: BP 138/92; PULSE 82; RESP 16; TEMP 36.6; O2SAT 88
--- NOTE | 2021-02-06 13:07 | XR_ITS ---
PROCEDURE: XR WRIST RT 2V CLINICAL INDICATION: HARDWARE REMOVAL RT WRIST COMPARISON: CR XR WRIST RT MIN 3V from 02/04/2021 FINDINGS: Status post external fixator removal with fluoroscopic guidance. Mildly displaced distal radial fracture once again noted along with avulsion of the ulnar styloid process. Fluoroscopy time: 6 seconds IMPRESSION: Status post hardware removal with fluoroscopic assistance Dictated by: Peter Morrissey MD 02/06/2021 18:22 Peter Morrissey MD in [place] 02/06/2021 18:22
[2021-02-06 13:15] VITALS: BP 154/90; PULSE 82; RESP 16; O2SAT 92
[2021-02-06 13:30] VITALS: BP 166/75; PULSE 86; RESP 16; O2SAT 93
--- NOTE | 2021-02-06 14:17 | SUR.OPER ---
1245 right wristjack removed
--- NOTE | 2021-02-06 16:26 | P.OP_ITS ---
Date of procedure: 02/06/21 Pre-op Diagnosis:: 1. Fracture distal radius, right wrist 2. S/p WristJack external fixator application, right wrist Post-op Diagnosis:: Same Procedure performed:: Removal of WristJack external fixator, right wrist Surgeon:: Dakotah Anton MD Building Materials Sales Attendant(s):: Shikha Salinas PA-C DATA COLLECTOR:: Carlos Trivedi Anesthesia: MAC Estimated blood loss (mL): 0 Clinical Note:: Patient is a 60-year-old female status post application of wrist maggie external fixator about 8 weeks ago for grade 1 open fracture of the distal radius and ulna. She had an open wound over the ulnar head with underlying ulnar styloid fracture. The wound has since healed well without any infection or other complications. The distal radius fracture is healing well both clinically and radiologically. Patient is on long-term pain medication for chronic pain. She reports occasional tingling in her thumb. No history of any chills, fevers or rigors. She has developed some stiffness of her fingers and has been having hand therapy. As the fracture is healing well both clinically and radiologically, I have recommended removal of the wrist maggie external fixator. Patient opted to have this done under anesthesia in the OR. Please refer to my office note for full details. Operative findings:: Healing fracture of the distal radius with slight malalignment as noted on the preoperative imaging. The ulna steroid fracture is displaced and not united. Residual calcific material in the soft tissue from the antibiotic beads noted. The pin tracts are healthy without any evidence of infection or other complications. Operative note:: On the day of the procedure the patient was met in the preoperative area and positively identified. The site was appropriately marked. A physical examination was performed and documented. I have discussed the proposed surgery, risks and benefits and alternatives in detail. She wished to proceed with surgery in the form of removal of the WristJack external fixator under anesthesia. The patient was brought to the operating room and placed supine on the operating table. The RIGHT upper extremity was placed on a hand table. All the bony prominences were appropriately padded. A MAC anesthesia was administered by the quality improvement manager. Administration of preoperative prophylactic antibiotics was confirmed. The pin sites were cleaned in a sterile fashion with aqueous chlorhexidine. A preprocedure timeout was performed as per hospital protocol. We removed the pin caps covering the bone pin ends. All the lock screws were loosened using the L wrench. We then removed the WristJack fixator and the metacarpal bar off the pins. The pins were then removed one by one sequentially using a power drill. The pin tracts were healthy without any signs of infection; there was no active bleeding or discharge. The wrist was screened under C-arm control and the distal radius fracture noted to be healing well. Sterile dressings were applied. The wrist was placed in a removable wrist brace. The patient was then reversed from the anesthetic and transferred onto the [facility]. Patient was then transported to the postoperative recovery area in a stable condition. Patient tolerated the procedure well and there were no immediate complications. The swab, needle and instrument counts were correct at the end of the procedure as per the scrub team. Following recovery from the anesthetic the patient was discharged home with the appropriate written instructions. Follow-up in my office in 4-5 days' time for wound check. Condition: stable Disposition: PACU Specimens:: None Complications:: None
== END 2021-02-06 13:35 | disposition home or self-care (01) ==
LOC: OR 08:29
PROVIDERS: PCP Family Medicine; Visit Provider Orthopaedic Surgery
DX: S52.611 Displaced fracture of right ulna styloid process (principal); S52.531D Colles' fracture of right radius, subsequent encounter for closed fracture with routine healing; W01.0XXA Fall on same level from slipping, tripping and stumbling without subsequent striking against object, initial encounter; Y92.480 Sidewalk as the place of occurrence of the external cause
CPT/HCPCS: 20694; 73100; 96374

== ENCOUNTER → 2021-02-26 14:49 | Outpatient (CLI) | payer MEDICARE, MEDICAID, SELFPAY ==
--- NOTE | 2021-02-26 14:55 | XR_ITS ---
FINAL REPORT CLINICAL HISTORY: sp external fixator removal sx 02/06/21 COMPARISON: No prior for comparison. FINDINGS: RIGHT WRIST FINDINGS: Three views show hardware defects in the mid radial diaphysis. There is a healing fracture deformity of the distal radial metaphysis. The fracture line remains visible. There is an avulsed ulnar styloid fracture which is distracted approximately 4 mm. There is soft tissue density adjacent to the distal ulna, in the soft tissues lateral to the mid radius and soft tissues adjacent to the first metacarpal interspace. Findings are probably related to soft tissue calcification related to external fixation device. IMPRESSION: Interval removal of external fixation device. No prior is available for comparison. Follow-up is recommended. Reviewed, Interpreted and Dictated by Miguel Harden MD Transcribed by Liss Herring Authenticated by Miguel Harden MD on 02/26/2021 03:54:14 PM [facility]
== END ==
PROVIDERS: PCP Emergency Medicine; Visit Provider Internal Medicine Adolescent Medicine
DX: Z09 Encounter for follow-up examination after completed treatment for conditions other than malignant neoplasm (principal); M25.531 Pain in right wrist
CPT/HCPCS: 73110

== ENCOUNTER → 2021-03-25 10:19 | Outpatient (CLI) | payer MEDICARE, MEDICAID, SELFPAY ==
--- NOTE | 2021-03-25 10:23 | XR_ITS ---
FINAL REPORT CLINICAL HISTORY: fu external fixator removal on 02/06/2021 prior 02/26/21 COMPARISON: 02/26/2021 FINDINGS: RIGHT WRIST Three views demonstrate chronic fractures of the distal radius and ulnar styloid process. 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 There is non-union of the ulnar styloid process fracture. Mild and moderate degenerative changes are present. The bones are osteopenic. There are soft tissue calcifications in the distal forearm, wrist, and lateral hand. Overall findings appear stable. IMPRESSION: Stable appearance of the wrist. Reviewed, Interpreted and Dictated by Bennie Mann III, MD Transcribed by Rachel Anderson Authenticated by Bennie Mann III, MD on 03/25/2021 01:58:50 PM [facility]
== END ==
PROVIDERS: PCP Emergency Medicine; Visit Provider Orthopaedic Surgery
DX: S52.611A Displaced fracture of right ulna styloid process, initial encounter for closed fracture (principal)
CPT/HCPCS: 73110

== ENCOUNTER 2021-04-03 11:00 | Outpatient (RCR) | payer MEDICARE, MEDICAID, SELFPAY ==
--- NOTE | 2021-01-26 11:27 | HMH.OTOPEV ---
OT Inpatient Evaluation Rehab OT Outpatient Eval Start: 01/26/21 11:03 Freq: Status: Active Protocol: Document 01/26/21 11:08 MIGUEL (Rec: 01/26/21 11:27 MIGUEL [id number]) Electronically Signed By Megan Gonzalez OT 01/26/21 11:08 Outpatient Therapy Subjective History Subjective History Pt is a 60 year old female who reports to therapy for initial evaluation to right wrist. Pt reports on 12/11/20 she was outside cleaning the wheels on her car when she fell resulting in an injury to right wrist. Pt is right hand dominant. Pt is now s/p wound debriedement, closed reduction with application of external fixator on 12/12/20. Pt is currently still in external fixator today for evaluation. Therapist's main focus was measuring her fingers and will add wrist once she has external fixator removed. Pt returns to doctor on 02/04/21 for re-evaluation of healing process at wrist. Pt does demonstrate with decreased AROM and strenth at right fingers and thumb. Therapist will continue to address these deficits. STG for all digits Thumb MP Abd: 40 degrees MP Ext: 0-20 degrees IP Flex: 50 degrees Digit 2 MCP Flex: 90 degrees MCP Ext: 0-20 degrees PCP Flex: 90 degrees PCP ext: 0-20 degrees DIP flex: 10 degrees Digit 3 MCP Flex: 90 degrees MCP Ext: 0-20 degrees PCP Flex: 90 degrees PCP ext: 0-20 degrees DIP Flex: 10 degrees Digit 4 MCP Flex: 80 degrees MCP Ext: 0-20 degrees PCP Flex: 100 degrees
--- NOTE | 2021-02-23 15:24 | HMH.RHREAS ---
Rehab Reassessment Rehab OP Re-assessment Start: 02/23/21 13:59 Freq: Status: Active Protocol: Document 02/23/21 15:09 RMRADHAHALL (Rec: 02/23/21 15:24 RMARSHALL [id number]) Electronically Signed By Megan Gonzalez OT 02/23/21 15:09 Rehab Re-assessment Subjective Subjective I have been doing my exercises more. Objective Objective Notes Pt continues to be seen weekly in order to address all deficits in right hand. Each session pt receives PROM manual stretching to right wrist and fingers. The wrist is stretched in flexion, extension, RD, UD, supination, and pronation. Each digit is stretched in flexion/ extension at every joint (MP, PIP, DIP). Pt does engage in AROM exercises as well. Strengthening exercises have not been initiated until doctor releases her to. Modalities are provided if pt agreeable to engage in them. Assessment Progress Assessment Progressing as Expected Assessment Notes Pt does demonstrate slight improvement in certain motions at right fingers. Improvements were made in the PIP and DIP joints with flexion. Pt now has had the external fixator removed. Therapist will be adding goals for the wrist to her plan of care at this time. Pt returns to the doctor on 02/26/21 for re-evaluation of right hand progress. Edema has improved. Current R wrist AROM: Flex: 54 degrees Ext: [address]: 18 degrees Ud: 16 degrees Sup: 75 degrees Pro: 75 degrees Patient goals [address] and 5 Goals Not Met see below Revised Goals ST, 2, and 4 LT-5 New goals below: Wrist AROM goals
== END 2021-04-03 11:05 | disposition home or self-care (01) ==
LOC: OT 11:00
PROVIDERS: PCP Emergency Medicine; Visit Provider Orthopaedic Surgery
DX: S52.531D Colles' fracture of right radius, subsequent encounter for closed fracture with routine healing (principal); S52.611D Displaced fracture of right ulna styloid process, subsequent encounter for closed fracture with routine healing
CPT/HCPCS: 97010; 97014; 97110; 97140; 97164; 97763; G0283

== ENCOUNTER 2021-04-05 23:38 | Emergency (ER) | payer MEDICARE, MEDICAID, SELFPAY ==
[2021-04-05 23:22] VITALS: BP 115/92; PULSE 88; RESP 20; TEMP 36.7; O2SAT 97; BMI 23.6
[2021-04-05 23:35] VITALS: BP 115/92; PULSE 87; RESP 16; TEMP 36.7; O2SAT 87; BMI 23.6
--- NOTE | 2021-04-05 23:46 | CT_ITS ---
PROCEDURE INFORMATION: Exam: CT Abdomen And Pelvis With Contrast Exam date and time: 04/05/2021 11:46 PM Age: 61 years old Clinical indication: Injury or trauma; Fall; Blunt; Generalized; Injury date: 04/05/2021; Additional info: Fall trauma protocol back pain scoliosis TECHNIQUE: Imaging protocol: Computed tomography of the abdomen and pelvis with contrast. Radiation optimization: All CT scans at this facility use at least one of these dose optimization techniques: automated exposure control; mA and/or kV adjustment per patient size (includes targeted exams where dose is matched to clinical indication); or iterative reconstruction. Contrast material: ISOVUE; Contrast volume: 75 ml; Contrast route: IV; COMPARISON: CT ANGIO ABDOMEN 10/19/2019 9:32 AM FINDINGS: Liver: Hepatic steatosis. Gallbladder and bile ducts: No calcified stones. No ductal dilation. Pancreas: No ductal dilation. No peripancreatic inflammatory changes. Spleen: Unremarkable. Adrenal glands: Adrenal thickening. Kidneys and ureters: No hydronephrosis. Stomach and bowel: See Appendix finding. Appendix: The appendix is not identified, but there is no pericecal inflammatory changes. Intraperitoneal space: No free air. No ascites. Vasculature: No abdominal aortic aneurysm. Atherosclerotic calcifications. Lymph nodes: No enlarged lymph nodes. Urinary bladder: Unremarkable as visualized. Reproductive: Unremarkable as visualized. Bones/joints: Please refer to separate CT chest report including for description of rib fractures in additional findings. Soft tissues: No suspicious mass. IMPRESSION: No acute findings in the abdomen/pelvis. Please refer to separate CT chest report including for description of rib fractures in additional findings.
--- NOTE | 2021-04-05 23:46 | CT_ITS ---
The PROCEDURE INFORMATION: Exam: CT Cervical Spine Without Contrast Exam date and time: 04/05/2021 11:46 PM Age: 61 years old Clinical indication: Injury or trauma; Fall; Blunt trauma; Injury date: 04/05/2021 TECHNIQUE: Imaging protocol: Computed tomography images of the cervical spine without contrast. Radiation optimization: All CT scans at this facility use at least one of these dose optimization techniques: automated exposure control; mA and/or kV adjustment per patient size (includes targeted exams where dose is matched to clinical indication); or iterative reconstruction. COMPARISON: CT HEAD/BRAIN WO CON 04/06/2021 12:34 AM FINDINGS: Bones/joints: No acute fracture. Normal alignment. Anterior bridging osteophyte formation. Discs/Spinal canal/Neural foramina: Degenerative disc disease at C5-C6 and C6-C7 with disc osteophyte complexes resulting in neural foraminal and central canal narrowing. No additional significant disc protrusion. No severe spinal canal stenosis. No significant neural foraminal narrowing. Lungs: Lung apices are normal. Soft tissues: Unremarkable. IMPRESSION: No acute findings.
--- NOTE | 2021-04-05 23:46 | CT_ITS ---
PROCEDURE INFORMATION: Exam: CT Lumbar Spine Without Contrast Exam date and time: 04/05/2021 11:46 PM Age: 61 years old Clinical indication: Injury or trauma; Fall; Blunt trauma (contusions or hematomas); Injury date: 04/05/2021; Additional info: Fall back pain PT has HX of scoliosis TECHNIQUE: Imaging protocol: Computed tomography images of the lumbar spine without contrast. Radiation optimization: All CT scans at this facility use at least one of these dose optimization techniques: automated exposure control; mA and/or kV adjustment per patient size (includes targeted exams where dose is matched to clinical indication); or iterative reconstruction. COMPARISON: SPLUMBWO CT lumbar spine wo con 08/14/2018 10:06 AM FINDINGS: Vertebrae: Scoliosis. No evidence of acute fracture in the lumbar spine. Discs/Spinal canal/Neural foramina: Multilevel degenerative changes. Soft tissues: Please refer to separate CT abdomen pelvis report for additional findings. IMPRESSION: No evidence of acute fracture in the lumbar spine.
--- NOTE | 2021-04-05 23:46 | XR_ITS ---
PROCEDURE INFORMATION: Exam: XR Chest Exam date and time: 04/05/2021 11:46 PM Age: 61 years old Clinical indication: Injury or trauma; Fall; Blunt trauma (contusions or hematomas); Injury date: 04/05/2021 TECHNIQUE: Imaging protocol: XR of the chest. Views: 4 or more views. COMPARISON: CR XR CHEST 2V 12/12/2020 11:33 AM FINDINGS: Lungs: No focal consolidation. Pleural spaces: No pleural effusion. No pneumothorax. Heart/Mediastinum: Unremarkable cardiomediastinal silhouette. Bones/joints: Several acute right posterolateral rib fractures most conspicuous in Eighth , 9th (severely comminuted) , 10th ribs, better seen on CT chest. IMPRESSION: Several acute right posterolateral rib fractures most conspicuous in Eighth , 9th (severely comminuted) , 10th ribs, better seen on CT chest. No pneumothorax.
--- NOTE | 2021-04-05 23:46 | CT_ITS ---
PROCEDURE INFORMATION: Exam: CT Head Without Contrast Exam date and time: 04/05/2021 11:46 PM Age: 61 years old Clinical indication: Injury or trauma; Fall; Blunt trauma (contusions or hematomas); Without loss of consciousness; Injury date: 04/05/2021 TECHNIQUE: Imaging protocol: Computed tomography of the head without contrast. Radiation optimization: All CT scans at this facility use at least one of these dose optimization techniques: automated exposure control; mA and/or kV adjustment per patient size (includes targeted exams where dose is matched to clinical indication); or iterative reconstruction. COMPARISON: No relevant prior studies available. FINDINGS: Brain: Atrophy and chronic small vessel ischemic changes. No hemorrhage. No mass effect or midline shift. 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 Cerebral ventricles: No ventriculomegaly. Paranasal sinuses: Visualized sinuses are unremarkable. No fluid levels. Mastoid air cells: Visualized mastoid air cells are well aerated. Bones/joints: Age indeterminate left nasal bone fracture. Soft tissues: Unremarkable. IMPRESSION: Chronic changes in the brain but no acute intracranial abnormality. Age indeterminate left nasal bone fracture.
--- NOTE | 2021-04-05 23:46 | CT_ITS ---
PROCEDURE INFORMATION: Exam: CT Thoracic Spine Without Contrast Exam date and time: 04/05/2021 11:46 PM Age: 61 years old Clinical indication: Injury or trauma; Fall; Blunt trauma (contusions or hematomas); Injury date: 04/05/2021; Additional info: Fall back pain HX of scoliosis TECHNIQUE: Imaging protocol: Computed tomography images of the thoracic spine without contrast. Radiation optimization: All CT scans at this facility use at least one of these dose optimization techniques: automated exposure control; mA and/or kV adjustment per patient size (includes targeted exams where dose is matched to clinical indication); or iterative reconstruction. COMPARISON: [facility] CT thoracic spine wo con 08/14/2018 10:04 AM FINDINGS: Vertebrae: Thoracolumbar scoliosis. No evidence of acute fracture in the thoracic spine. Discs/Spinal canal/Neural foramina: Multilevel degenerative changes. Soft tissues: Please refer to separate CT chest report for additional findings. IMPRESSION: No evidence of acute fracture in the thoracic spine.
--- NOTE | 2021-04-05 23:46 | XR_ITS ---
PROCEDURE INFORMATION: Exam: XR Pelvis Exam date and time: 04/05/2021 11:46 PM Age: 61 years old Clinical indication: Injury or trauma; Fall; Blunt trauma (contusions or hematomas); Bilateral; Pelvic region; Injury date: 04/05/2021 TECHNIQUE: Imaging protocol: XR pelvis. Views: 1 or 2 view. COMPARISON: CT ANGIO ABDOMEN 10/19/2019 9:32 AM FINDINGS: Bones/joints: Unremarkable. No acute fracture. Soft tissues: Unremarkable. IMPRESSION: No acute findings.
[2021-04-06] VITALS: BP 112/87; PULSE 88; O2SAT 94
[2021-04-06 00:01] LABS: Alanine Aminotransferase 45 U/L (12-78); Albumin Level 4.5 g/dl (3.5-5.0); Albumin/Globulin Ratio 1.7 (1.1-1.8); Alkaline Phosphatase 73 U/L (38-126); Aspartate Amino Transferase 89 U/L (14-36); Basophils # 0.2 K/mm3 (0-0.2); Basophils % 1.8 % (0.1-2.0); Bilirubin,Total 0.3 mg/dl (0.2-1.3); Blood Urea Nitrogen 11 mg/dl (7-17); Calcium 9.3 mg/dl (8.4-10.2); Carbon Dioxide 31 mmol/L (22.0-30.0); Chloride 101 mmol/L (98-107); Creatinine Clearance Estimated 52 mL/min (50-200); Eosinophils # 0.2 K/mm3 (0.0-0.4); Eosinophils % 2.8 % (0.1-12.0); Estimated Glomerular Filt Rate 225 ml/min (>60); Ethyl Alcohol 232 mg/dl (0-10); GFR (African American) 273 ML/MIN (>60); Globulin 2.6 g/dL (1.3-3.2); Glucose 107 mg/dl (74-100); Hematocrit 39.6 % (37.0-47.0); Hemoglobin 12.6 g/dL (12.2-16.2); Lymphocytes # 2.3 K/mm3 (0.7-4.5); Lymphocytes % 27.6 % (10-50); Mean Corpuscular HGB Conc 31.8 g/dL (31.8-35.4); Mean Corpuscular Hemoglobin 32.6 pg (27.0-31.2); Mean Corpuscular Volume 102.6 fl (81-99); Mean Platelet Volume 7.5 fl (7.4-10.4); Monocytes # 0.5 K/mm3 (0.1-1.0); Monocytes % 5.5 % (1.7-9.3); Neutrophils # 5.3 K/mm3 (1.8-7.8); Neutrophils % 62.4 % (37.0-80.0); Platelet Count 366 K/mm3 (142-424); Red Blood Count 3.86 M/mm3 (4.20-5.40); Red Cell Distribution Width 13.8 % (11.5-17.5); Sodium 142 mmol/L (136-145); Total Protein,Serum 7.1 g/dl (6.3-8.2); White Blood Count 8.5 K/mm3 (4.8-10.8)
--- NOTE | 2021-04-06 00:13 | CT_ITS ---
PROCEDURE INFORMATION: Exam: CT Chest With Contrast; Diagnostic Exam date and time: 04/06/2021 12:13 AM Age: 61 years old Clinical indication: Injury or trauma; Fall; Blunt trauma (contusions or hematomas); Injury date: 04/05/2021; Additional info: Fall pain in right chest HX of scoliosis also TECHNIQUE: Imaging protocol: Diagnostic computed tomography of the chest with contrast. Radiation optimization: All CT scans at this facility use at least one of these dose optimization techniques: automated exposure control; mA and/or kV adjustment per patient size (includes targeted exams where dose is matched to clinical indication); or iterative reconstruction. Contrast material: ISOVUE; Contrast volume: 75 ml; Contrast route: IV; COMPARISON: CHESTWW CT chest wo/w con 08/14/2018 8:49 AM FINDINGS: Lungs: Pulmonary emphysema. Nonspecific bibasilar opacities, favoring atelectasis or pneumonia. Probable scarring or atelectasis in the lingula. Several pulmonary calcified granulomas. Pleural spaces: No pneumothorax. No pleural effusion. Heart: Trace pericardial effusion versus pericardial thickening. Aorta: No thoracic aortic aneurysm. Other arteries: Atherosclerotic calcifications. Lymph nodes: Several partially calcified intrathoracic lymph nodes. Bones/joints: Several right posterolateral rib fractures most conspicuous in Eighth , 9th (severely comminuted) , 10th ribs. Additional old-appearing rib fractures are noted. Soft tissues: Grossly unremarkable. Other findings: Please refer to separate CT abdomen pelvis report for additional findings. IMPRESSION: 1. Several right posterolateral rib fractures most conspicuous in Eighth , 9th (severely comminuted) , 10th ribs. No pneumothorax 2. Nonspecific bibasilar opacities, favoring atelectasis or pneumonia. Recommend imaging follow-up until complete resolution. 3. Probable scarring or atelectasis in the lingular. Recommend imaging follow-up until complete resolution.
--- NOTE | 2021-04-06 00:44 | HMH.EDFALL ---
ED Disposition Clinical Impression: Alcohol use Ribs, multiple fractures Qualifiers: Encounter type: initial encounter Fracture type: closed Laterality: right Qualified Code(s): S22.41XA - Multiple fractures of ribs, right side, initial encounter for closed fracture Disposition: Home, Self-Care Condition on Discharge: Fair Instructions: DI for Rib Fracture Additional Instructions: use meds and see pcp for follow up Referrals: Dagoberto Low MD [Primary Care Provider] - - Critical Care Critical Care Time: No Attestation: On 04/05/21, the high probability of a clinically significant, sudden or life threatening deterioration of the following system(s) required my full and direct attention, intervention and personal management. The time I documented below is in addition to time spent performing reported procedures but includes the following listed in this critical care notation. Medical Decision Making - Medical Records Medical records reviewed: Yes: I reviewed the patient's medical records. - Tino Inquiry Pt receiving controlled substance: No Vital Signs: 04/05/21 23:22 04/05/21 23:35 04/06/21 00:00 Temperature 98.1 F 98.1 F Temperature Source Oral Oral Pulse Rate 88 Pulse Rate [Left] 87 Pulse Rate [Right Radial] 88 Respiratory Rate 20 16 Blood Pressure 112/87 Blood Pressure [Right Arm] 115/92 H 115/92 H Blood Pressure Mean 94 Blood Pressure Mean [Right Arm] 99 99 Blood Pressure Source [Right Arm] Automatic Cuff Blood Pressure Position [Right Arm] Supine 02 Sat by Pulse Oximetry 97 87 L 94 L Oxygen Delivery Method Nasal Cannula Nasal Cannula Oxygen Flow Rate (LPM) 2 04/06/21 01:01 Temperature Temperature Source Pulse Rate 87 Pulse Rate [Left] Pulse Rate [Right Radial] Respiratory Rate Blood Pressure 113/79 Blood Pressure [Right Arm] Blood Pressure Mean Blood Pressure Mean [Right Arm] Blood Pressure Source [Right Arm] Blood Pressure Position [Right Arm] 02 Sat by Pulse Oximetry 94 L Oxygen Delivery Method Oxygen Flow Rate (LPM) - Lab Data Lab results reviewed: Yes: I reviewed the patient's lab results. Lab Results 04/05/21 23:34: WBC 8.5, RBC 3.86 L, Hgb 12.6, Hct 39.6, MCV 102.6 H, MCH 32.6 H, MCHC 31.8, RDW 13.8, Plt Count 366, MPV 7.5, Neut % (Auto) 62.4, Lymph % (Auto) 27.6, [place] % (Auto) 5.5, Eos % (Auto) 2.8, Baso % (Auto) 1.8, Neut # (Auto) 5.3, Lymph # (Auto) 2.3, [place] # (Auto) 0.5, Eos # (Auto) 0.2, Baso # (Auto) 0.2 04/05/21 23:34: Sodium 142, Potassium 4.0, Chloride 101, Carbon Dioxide 31 H, Anion Gap 14.0, BUN 11, Creatinine 0.30 L, Estimated Creat Clear 52, Estimated GFR 225, Est GFR ( Amer) 273, Glucose 107 H, Calcium 9.3, Total Bilirubin 0.3, AST 89 H, ALT 45, Alkaline Phosphatase 73, Total Protein 7.1, Albumin 4.5, Globulin 2.6, Albumin/Globulin Ratio 1.7 04/05/21 23:34: Plasma/Serum Alcohol 232 H 04/05/21 23:34: Total Creatine Kinase 98 Result diagrams: 04/05/21 23:34 04/05/21 23:34 Orders (Tests/Meds): ED MEDICATIONS Discontinued Medications Generic Name Dose Route Start Last Admin Trade Name Freq PRN Reason Stop Dose Admin Iopamidol 75 ml 04/06/21 01:23 04/06/21 00:50 Iopamidol-370 (76%);100ml Bottle IV 04/06/21 01:24 75 ml ONCE ONE Administration Sodium Chloride 10 ml 04/06/21 01:23 04/06/21 00:50 Sodium Chloride 0.9% 10ml Syr (Rad Only) IV 04/06/21 01:24 10 ml ONCE ONE Administration - Radiology Data #1 Image(s): Chest, Pelvis Image Reviewed: Yes I have reviewed radiologist's interpretation Preliminary Findings: Abnormal - CT Data CT Scan: Head, C-Spine, Abdomen, Pelvis, Chest, T-Spine, L-Spine Time Received: 02:[address] Reviewed: Yes: I have viewed the radiologist's interpretation Preliminary Findings: Abnormal Medical Decision Narrative: has fall with fx rt ribs - discuused etoh use with pt - Fall HPI - General Chief Complaint: Fall Stated Complaint: fall
[2021-04-06 00:56] LABS: Creatine Kinase 98 U/L (30-135)
[2021-04-06 01:01] VITALS: BP 113/79; PULSE 87; O2SAT 94
--- NOTE | 2021-04-06 03:50 | PC.NURSE ---
Pt unable to find a ride at this time. She says she can have someone come get her in the morning. Pt has been medically cleared and discharged.
[2021-04-06 06:21] VITALS: BP 115/72; PULSE 84; RESP 18; TEMP 36.6; O2SAT 94
== END 2021-04-06 06:55 | disposition home or self-care (01) ==
PROVIDERS: Emergency Provider Emergency Medicine; PCP Emergency Medicine
DX: F10.10 Alcohol abuse, uncomplicated (principal); S22.41XA Multiple fractures of ribs, right side, initial encounter for closed fracture; W01.0XXA Fall on same level from slipping, tripping and stumbling without subsequent striking against object, initial encounter; Y92.019 Unspecified place in single-family (private) house as the place of occurrence of the external cause; J44.9 Chronic obstructive pulmonary disease, unspecified; K21.9 Gastro-esophageal reflux disease without esophagitis; E78.5 Hyperlipidemia, unspecified; I10 Essential (primary) hypertension; Z87.891 Personal history of nicotine dependence
CPT/HCPCS: 70450; 71045; 71260; 72125; 72128; 72131; 72170; 74177; 80053; 82550; 85025; 96374; 99282; Q9967

== ENCOUNTER → 2021-05-06 10:21 | Outpatient (CLI) | payer MEDICARE, MEDICAID, SELFPAY ==
--- NOTE | 2021-05-06 10:36 | XR_ITS ---
FINAL REPORT CLINICAL HISTORY: sp external fixator removal 02/06/21 f/u COMPARISON: March 25, 2021 FINDINGS: 3 views of the right wrist were obtained. Again noted is a fracture of the distal radius. There has been interval healing with at least partial bony fusion. There is a fracture ulnar styloid process with nonunion. There is moderate degenerative change. There is a soft tissue calcification adjacent to the distal ulna. There are presumed soft tissue calcifications in the forearm and radial aspect of the hand. The bones are osteopenic. There are postoperative changes of the radius and 2nd metacarpal. IMPRESSION: Redemonstration of fractures and degenerative changes as above. Reviewed, Interpreted and Dictated by Bennie Mann III, MD Transcribed by David Wren Authenticated by Bennie Mann III, MD on 05/06/2021 12:23:59 PM [facility]
== END ==
PROVIDERS: PCP Emergency Medicine; Visit Provider Orthopaedic Surgery
DX: Z09 Encounter for follow-up examination after completed treatment for conditions other than malignant neoplasm (principal); M25.531 Pain in right wrist
CPT/HCPCS: 73110

== ENCOUNTER → 2021-05-14 08:47 | Outpatient (CLI) | payer MEDICARE, MEDICAID, SELFPAY ==
--- NOTE | 2021-05-14 08:47 | XR_ITS ---
FINAL REPORT TECHNIQUE: Bone densitometry calculations of the lumbar spine and both hips were obtained. CLINICAL HISTORY: POST MENOPAUSAL FINDINGS: Using L1-4, the bone mineral density of the spine is 1.120 g/cm2, corresponding to T-score of 0.7. These values may be falsely elevated secondary to scoliosis and hypertrophic changes. Using the left hip, the bone mineral density of the femoral neck is 0.649 g/cm2, corresponding to a T-score of -2.4. Using the right hip, the bone mineral density of the femoral neck is 0.580 g/cm2, corresponding to a T-score of -2.4. NOTE: T-score: Standard deviation compared with peak bone mass of young adult mean. *Following the recommendations of the International Society of Bone densitometry, classification of hip BMD is based on the lower of two T-scores; total hip or femoral neck. IMPRESSION: Diminished bone mineral density of both hips consistent with osteopenia. FRAX 10 year fracture risk for major osteoporotic fracture is 18%. Reviewed, Interpreted and Dictated by Miguel Harden MD Transcribed by Neena Lynch Authenticated by Miguel Harden MD on 05/14/2021 12:57:16 PM [facility]
== END ==
PROVIDERS: PCP Emergency Medicine; Visit Provider Emergency Medicine
DX: Z78.0 Asymptomatic menopausal state (principal)
CPT/HCPCS: 77080

== ENCOUNTER → 2021-06-02 16:21 | Outpatient (CLI) | payer MEDICARE, MEDICAID, SELFPAY ==
[2021-06-02 17:05] LABS: Amphetamine/Metha Screen,Urine Negative ng/ml (<1000)
[2021-06-02 17:06] LABS: Barbiturates Screen,Urine Negative ng/ml (<200)
[2021-06-02 17:08] LABS: Benzodiazepines Screen,Urine Negative ng/ml (<200); Cannabinoid Screen,Urine Negative ng/ml (<50)
[2021-06-02 17:09] LABS: Cocaine Screen,Urine Negative ng/ml (<300)
[2021-06-02 17:10] LABS: Methadone Screen,Urine Negative ng/ml (<300); Opiate Screen,Urine Positive ng/ml (<300)
[2021-06-02 17:11] LABS: Phencyclidine Screen,Urine Negative ng/ml (<25)
== END ==
PROVIDERS: Visit Provider Emergency Medicine
DX: M54.16 Radiculopathy, lumbar region (principal)
CPT/HCPCS: 80305

== ENCOUNTER 2021-07-08 06:57 | Inpatient (IN) | payer MEDICARE, MEDICAID, SELFPAY ==
[2021-07-08] VITALS (18 sets, daily range): BP systolic 100–124; BP diastolic 64–94; PULSE 92–107; RESP 17–28; TEMP 36.6–37.3; O2SAT 78–92; BMI 20.3; BMI 23.1
--- NOTE | 2021-07-08 06:57 | ECG_ITS ---
APPROVED REPORT Exam: Resting ECG HR:105 bpm ECG Measurements Heart Rate 105 AXES NC 160 P 82 QRSd 82 QRS 97 QT 356 T 78 QTc 417 Conclusion SINUS TACHYCARDIA BORDERLINE RIGHT AXIS DEVIATION [QRS AXIS > 90] POSSIBLE RIGHT VENTRICULAR CONDUCTION DELAY [RSR (QR) IN V1/V2] ABNORMAL RHYTHM ECG UNCONFIRMED REPORT Electronically signed by : Alexey Pedraza MD 07/09/2021 08:43:47
--- NOTE | 2021-07-08 07:02 | XR_ITS ---
PROCEDURE INFORMATION: Exam: XR Chest Exam date and time: 07/08/2021 7:15 AM Age: 61 years old Clinical indication: Angina and dyspnea; Additional info: Cp, SOSaúl TECHNIQUE: Imaging protocol: XR of the chest. Views: 1 view. COMPARISON: CT CHEST W CON 04/06/2021 12:50 AM FINDINGS: Lungs: Patchy bibasilar airspace opacities. Pleural spaces: Unremarkable. No pleural effusion. No pneumothorax. Heart/Mediastinum: Unremarkable. No cardiomegaly. Bones/joints: Remote right rib fracture. IMPRESSION: Patchy bibasilar airspace opacities may reflect atelectasis versus aspiration or pneumonia.
[2021-07-08 07:11] LABS: ABG Base Excess 1.7 mmol/L (-2.4-2.3); ABG HCO3 26.3 mmhg (22.0-26.0); ABG Oxygen Saturation 89 % (90-100); ABG PCO2 42.5 mmhg (35.0-45.0); ABG PH 7.41 mmol/L (7.35-7.45); ABG PO2 60.4 mmhg (80-100); ABG TCO2 27.6 mmhg (23-27)
[2021-07-08 07:13] LABS: Allen's Test Acceptable; Oxygen 5L %; Source Left Radial
--- NOTE | 2021-07-08 07:20 | PC.NURSE ---
lungs with decreased BS thru out
--- NOTE | 2021-07-08 07:20 | PC.NURSE ---
pt reports she has taken 30mg prednisone at home approx 1:30am.
[2021-07-08 07:23] LABS: Basophils # 0.1 K/mm3 (0-0.2); Basophils % 0.7 % (0.1-2.0); Eosinophils % 0.4 % (0.1-12.0); Hematocrit 40.3 % (37.0-47.0); Hemoglobin 13.6 g/dL (12.2-16.2); Lymphocytes # 0.6 K/mm3 (0.7-4.5); Lymphocytes % 5.8 % (10-50); Mean Corpuscular HGB Conc 33.9 g/dL (31.8-35.4); Mean Corpuscular Hemoglobin 33.5 pg (27.0-31.2); Mean Corpuscular Volume 98.7 fl (81-99); Mean Platelet Volume 7.8 fl (7.4-10.4); Monocytes # 0.5 K/mm3 (0.1-1.0); Monocytes % 4.5 % (1.7-9.3); Neutrophils # 8.8 K/mm3 (1.8-7.8); Neutrophils % 88.7 % (37.0-80.0); Platelet Count 211 K/mm3 (142-424); Red Blood Count 4.08 M/mm3 (4.20-5.40); White Blood Count 9.9 K/mm3 (4.8-10.8)
[2021-07-08 07:25] LABS: MANUAL DIFFERENTIAL MANUAL DIFFERENTIAL (MANUAL DIFF)
--- NOTE | 2021-07-08 07:30 | PC.NURSE ---
lungs with expiratory wheezes noted.
[2021-07-08 07:32] LABS: Anion Gap 15.7 mEq/L (5-15); Blood Urea Nitrogen 9 mg/dl (7-17); Carbon Dioxide 33 mmol/L (22.0-30.0); Chloride 90 mmol/L (98-107); Creatinine Clearance Estimated 48 mL/min (50-200); Estimated Glomerular Filt Rate 162 ml/min (>60); GFR (African American) 196 ML/MIN (>60); Glucose 168 mg/dl (74-100); Lactic Acid 1.3 mmol/L (0.7-2.1); Magnesium 1.1 mg/dl (1.6-2.3); Sodium 136 mmol/L (136-145)
[2021-07-08 07:33] LABS: Coronavirus 19, PCR Not Detected (NotDetected); Influenza A, PCR Not Detected (NotDetected); Influenza B, PCR Not Detected (NotDetected)
[2021-07-08 07:34] LABS: Potassium 2.7 mmoL/L (3.5-5.1)
[2021-07-08 07:37] LABS: C-Reactive Protein 38.9 mg/L (0-4)
[2021-07-08 07:39] LABS: Lymphocytes % 6 % (10-50); Monocytes % 4 % (2-9); Neutrophils % 78 % (42-76); Platelet Estimate Normal; RBC Morphology Normal; Total Cells Counted 100
--- NOTE | 2021-07-08 07:39 | PC.NURSE ---
notified ER MD Low of pt critical potassium
[2021-07-08 07:43] LABS: NT Pro Brain Natriuretic Pep. 259 pg/mL (0-125)
[2021-07-08 07:46] LABS: Erythrocyte Sedimentation Rate 19 mm/hr (0-30); Troponin I < 0.01 ng/ml (0.00-0.034)
[2021-07-08 07:50] LABS: Procalcitonin 3.85 ng/mL (0.0-2.0)
[2021-07-08 08:02] LABS: Alanine Aminotransferase 59 U/L (12-78); Albumin Level 4.7 g/dl (3.5-5.0); Alkaline Phosphatase 87 U/L (38-126); Aspartate Amino Transferase 89 U/L (14-36); Bilirubin,Indirect 0.5 mg/dL (0.0-0.9); Bilirubin,Total 0.5 mg/dl (0.2-1.3); Bilirubin,Unconjugated 0.6 mg/dL (0.0-1.1); Total Protein,Serum 6.9 g/dl (6.3-8.2)
--- NOTE | 2021-07-08 08:12 | HMH.EDGENADL ---
ED Disposition Clinical Impression: COPD exacerbation, Hypomagnesemia, Hypokalemia Pneumonia Qualifiers: Pneumonia type: due to unspecified organism Laterality: bilateral Lung location: unspecified part of lung Qualified Code(s): J18.9 - Pneumonia, unspecified organism Disposition: Admitted As Inpatient Condition on Discharge: Undetermined Referrals: Dagoberto Low MD [Primary Care Provider] - - Critical Care Critical Care Time: No Attestation: On 07/08/21, the high probability of a clinically significant, sudden or life threatening deterioration of the following system(s) required my full and direct attention, intervention and personal management. The time I documented below is in addition to time spent performing reported procedures but includes the following listed in this critical care notation. Medical Decision Making - Medical Records Medical records reviewed: Yes: I reviewed the patient's medical records. - Tino Inquiry Pt receiving controlled substance: No Vital Signs: 07/08/21 06:59 07/08/21 07:40 Temperature 99.2 F Temperature Source Oral Pulse Rate 103 H Pulse Rate [Left Radial] 106 H Respiratory Rate 28 H 28 H Blood Pressure 103/79 L Blood Pressure [Right Arm] 119/86 Blood Pressure Mean [Right Arm] 97 Blood Pressure Position Sitting 02 Sat by Pulse Oximetry 78 L 90 L Oxygen Delivery Method Room Air Nasal Cannula Oxygen Flow Rate (LPM) 3 - Lab Data Lab results reviewed: Yes: I reviewed the patient's lab results. Lab Results 07/08/21 07:03: ESR 19 07/08/21 07:03: Troponin I < 0.01, C-Reactive Protein 38.9 H, Procalcitonin 3.85 H 07/08/21 07:03: WBC 9.9, RBC 4.08 L, Hgb 13.6, Hct 40.3, MCV 98.7, MCH 33.5 H, MCHC 33.9, RDW 14.0, Plt Count 211, MPV 7.8, Neut % (Auto) 88.7 H, Lymph % (Auto) 5.8 L, Parker % (Auto) 4.5, Eos % (Auto) 0.4, Baso % (Auto) 0.7, Neut # (Auto) 8.8 H, Lymph # (Auto) 0.6 L, Parker # (Auto) 0.5, Eos # (Auto) 0.0, Baso # (Auto) 0.1, Total Counted 100, Neutrophils % (Manual) 78 H, Band Neutrophils % 12.0 H, Lymphocytes % (Manual) 6 L, Monocytes % (Manual) 4, Platelet Estimate Normal, RBC Morphology Normal 07/08/21 07:03: Sodium 136, Potassium 2.7 L*, Chloride 90 L, Carbon Dioxide 33 H, Anion Gap 15.7 H, BUN 9, Creatinine 0.40 L, Estimated Creat Clear 48, Estimated GFR 162, Est GFR ( Amer) 196, Glucose 168 H, Calcium 9.0, Magnesium 1.1 L, NT-Pro-B Natriuret Pep 259 H 07/08/21 07:03: Total Bilirubin 0.5, Direct Bilirubin 0.0, Conjugated Bilirubin 0.0, Indirect Bilirubin 0.5, Unconjugated Bilirubin 0.6, AST 89 H, ALT 59, Alkaline Phosphatase 87, Total Protein 6.9, Albumin 4.7 07/08/21 07:03: Lactate 1.3 07/08/21 07:11: Specimen Source Left radial, O2 % 5l, ABG pH 7.41, ABG pCO2 42.5, ABG pO2 60.4 L, ABG HCO3 26.3 H, ABG Total CO2 27.6 H, ABG O2 Saturation 89 L, ABG Base Excess 1.7, Peter Test Acceptable 07/08/21 07:25: SARS-CoV-2 (PCR) Not detected, Influenza A Untype (PCR) Not detected, Influenza Type B (PCR) Not detected Result diagrams: 07/08/21 07:03 07/08/21 07:03 Orders (Tests/Meds): ED MEDICATIONS Generic Name Dose Route Start Last Admin Trade Name Freq PRN Reason Stop Dose Admin Potassium Chloride/Water 100 mls @ 50 mls/hr 07/08/21 08:11 Potassium Chloride 20meq/100ml Ivpb IV 07/08/21 12:10 Q2H ISSAC Magnesium Sulfate 2 gm in 50 mls @ 50 mls/hr 07/08/21 08:11 Magnesium Sulfate 2gm/50ml Premix IV 07/08/21 09:10 ONCE ONE Sodium Chloride 3 ml 07/08/21 07:02 Sodium Chloride 3% 15ml Neb IH 08/07/21 07:01 ONCE PRN INDUCE SPUTUM COLLECTION Discontinued Medications Generic Name Dose Route Start Last Admin Trade Name Freq PRN Reason Stop Dose Admin Albuterol/Ipratropium 3 ml 07/08/21 07:31 07/08/21 07:20 Ipratropium/Albuterol 3 Ml [facility] 07/08/21 07:32 3 ml ONCE ONE Administration Albuterol/Ipratropium 3 ml 07/08/21 07:41 07/08/21 07:42 Ipratropium/Albuterol 3 Ml [facility] 07/08/21 07:42 3 ml
--- NOTE | 2021-07-08 09:11 | HMH.PHAINT ---
MEDICATION RECONCILIATION COMPLETED ON PATIENT USING EXTERNAL FILL HISTORY FROM PHARMACY AND LIST FROM PCP OFFICE. -JOSE CARLOS GOODRICHD
--- NOTE | 2021-07-08 09:46 | PC.NURSE ---
dr gema peres
--- NOTE | 2021-07-08 10:44 | PC.NURSE ---
speaking with Dr Low
[2021-07-08 10:46] LABS: Troponin I < 0.01 ng/ml (0.00-0.034)
--- NOTE | 2021-07-08 10:50 | PC.NURSE ---
care management called for admission
--- NOTE | 2021-07-08 11:54 | PC.NURSE ---
per warehouseman pt will be boarding in ER until a room is available on second floor, kristin gamez has updated pt on POC
--- NOTE | 2021-07-08 12:54 | PC.NURSE ---
report called to kristin middleton on second floor at this time. States she will send staff down to transport pt.
--- NOTE | 2021-07-08 13:15 | HMH.PHAVTE ---
[facility] Pharmacy VTE Monitoring - Patient Demographics Admission date: 07/08/21 Report Date: 07/08/21 Time: 13:15 Allergies/Adverse Reactions: Patient Allergies lamotrigine [From LAMICTAL] Allergy (Unknown, Verified 06/02/21 10:30) Height: 1.6 m Weight: 52.163 kg Patient Problems: Current Active Problems (Last Updated 10/22/20 @ 10:46 by Cherri Mejia RN) Pneumonia (Acute) COPD exacerbation (Acute) Hypomagnesemia (Acute) Hypokalemia (Acute) - VTE Risk Labs: VTE Related Lab Results Hgb 13.6 g/dL (12.2-16.2) 07/08/21 07:03 Hct 40.3 % (37.0-47.0) 07/08/21 07:03 Plt Count 211 K/mm3 (142-424) 07/08/21 07:03 BUN 9 mg/dl (7-17) 07/08/21 07:03 Creatinine 0.40 mg/dl (0.52-1.04) L 07/08/21 07:03 Estimated Creat Clear 48 mL/min (50-200) 07/08/21 07:03 - Prophylaxis VTE Prophylaxis Ordered?: Yes Types of VTE Prophylaxis: TEDS Knee High Location of Applied Device: Bilateral Lower Extremeties
[2021-07-08 13:30] LABS: Magnesium 0.9 mg/dl (1.6-2.3)
--- NOTE | 2021-07-08 14:53 | PC.NURSE ---
PT IS RESTING IN BED. NO COMPLAINTS OF DISCOMFORT. EATING AND DRINKING WELL W/O N/V. LUNG SOUNDS CLEAR. ABDOMEN MILDLY DISTENDED WITH HYPOACTIVE BOWEL SOUNDS. AMBULATES TO THE BATHROOM. SKIN (JAUNDICE). VSS. WILL CONTINUE TO MONITOR.
--- NOTE | 2021-07-08 21:09 | PC.NURSE ---
Patient refused atorvastatin, stating that she takes it in the morning with her morning medications. States that she took it this morning before coming to the hospital.
--- NOTE | 2021-07-08 23:50 | PC.NURSE ---
Patient requested to take clonopin later than the scheduled time. It was due at 2100 and she called out to ask for it at this time.
[2021-07-09] VITALS (12 sets, daily range): BP systolic 101–133; BP diastolic 50–72; PULSE 62–113; RESP 16–20; TEMP 36.6–37.4; O2SAT 93–95; BMI 22.7
--- NOTE | 2021-07-09 04:39 | PC.NURSE ---
Patient has rested well this shift. No complaints of pain or discomfort this shift. Patient went from being on 4L NC down to 3L and is tolerating well. Call light in place.
[2021-07-09 07:22] LABS: Basophils % 0.4 % (0.1-2.0); Eosinophils # 0.1 K/mm3 (0.0-0.4); Eosinophils % 0.5 % (0.1-12.0); Hematocrit 33.8 % (37.0-47.0); Lymphocytes # 1.1 K/mm3 (0.7-4.5); Lymphocytes % 9.3 % (10-50); Mean Corpuscular HGB Conc 33.8 g/dL (31.8-35.4); Mean Corpuscular Hemoglobin 33.6 pg (27.0-31.2); Mean Corpuscular Volume 99.4 fl (81-99); Mean Platelet Volume 8.4 fl (7.4-10.4); Monocytes # 0.6 K/mm3 (0.1-1.0); Monocytes % 4.8 % (1.7-9.3); Neutrophils # 9.8 K/mm3 (1.8-7.8); Platelet Count 187 K/mm3 (142-424); Red Cell Distribution Width 14.1 % (11.5-17.5); White Blood Count 11.5 K/mm3 (4.8-10.8)
[2021-07-09 07:31] LABS: Hemoglobin 11.4 g/dL (12.2-16.2); MANUAL DIFFERENTIAL MANUAL DIFFERENTIAL (MANUAL DIFF)
[2021-07-09 07:33] LABS: Anion Gap 9.2 mEq/L (5-15); Blood Urea Nitrogen 8 mg/dl (7-17); Calcium 8.1 mg/dl (8.4-10.2); Carbon Dioxide 30 mmol/L (22.0-30.0); Chloride 99 mmol/L (98-107); Creatinine Clearance Estimated 50 mL/min (50-200); Estimated Glomerular Filt Rate 162 ml/min (>60); GFR (African American) 196 ML/MIN (>60); Glucose 96 mg/dl (74-100); Potassium 3.2 mmoL/L (3.5-5.1); Sodium 135 mmol/L (136-145)
[2021-07-09 07:50] LABS: Eosinophils % 2 % (0-3); Lymphocytes % 17 % (10-50); Monocytes % 3 % (2-9); Neutrophils % 51 % (42-76); Platelet Estimate Normal; RBC Morphology Normal; Total Cells Counted 100
--- NOTE | 2021-07-09 09:17 | HMH.PULMCON ---
*Admission Date: 07/08/21 *Reason for consult:: Acute on chronic hypoxic respiratory failure, COPD exacerbation, pneumonia *History of present illness: Ms. Cotto 61-year-old female greater than [id number] smoking history carries a diagnosis COPD is along with subjective fevers chills and productive phlegm. Patient was found to be needing increasing oxygen requirements and pulmonary was called for further management. [facility] History Medical History: Reports:: Anxiety, Chronic Obstructive Pulmonary Disease (COPD), Depression, Gastroesophageal Reflux Disease(GERD), Hyperlipidemia, Hypertension Denies:: Cancer, Diabetes Mellitus Type 1, Diabetes Mellitus Type 2, Internal Pacemaker, MRSA, Seizures *Have you ever received a pneumonia vaccine?: Yes *Have you received a flu vaccine this season?: Yes Other Medical History: Reports: Arthritis, Other. Denies: Blood Transfusion Reaction Laterality Cases: Right: Other, Bilateral: Lumpectomy, Tonsillectomy Other Surgeries: Yes: Colonoscopy (x2), Dilation and Curettage, Other. No: Pacemaker Amputation: No Fractures: Yes (right wrist) - *Social History Last grade of school completed: Some college Smoking Status: Former smoker Tobacco Type: cigarettes # Packs/Day (cigarettes): 0 #Yrs smoked (if former smoker): 40 Alcohol Intake: never Alcohol Intake Frequency:: a few times a week Substance Use Type: denies use *Occupational Status:: disabled Housing: house Household Members: none *Travel in the last 8 weeks: None - Psychiatric History Pschychiatric History:: Reports:: Anxiety, Depression Family Hx:: No significant family history ROS - Cons Reports body ache(s), Reports chills - Eyes Reports blurry vision - ENT Reports nasal congestion, Reports nasal discharge - Card Reports shortness of breath, Reports shortness of breath with activity - Resp Respiratory: Reports chest congestion, Reports cough, Reports excessive phlegm production, Denies coughing up blood, Denies pain with cough, Reports cough with sputum production, Denies pain with breathing, Reports wheezing - GI Gastrointestingal: Denies: abdominal pain - Musk Musculoskeletal: Reports muscle aches - Psych Denies thoughts of hurting/killing others, Denies thoughts of hurting/killing yourself Meds Home Medications Medication Instructions Recorded Confirmed Type Quetiapine Fumarate 200 mg PO 10/03/20 07/08/21 History Ergocalciferol (Vitamin D2) 25 mcg PO DAILY 12/12/20 07/08/21 History [Vitamin D2] clonazepam 0.5 mg tablet 0.5 mg PO BID #60 tab 06/02/21 07/08/21 Rx Alendronate Sodium [Fosamax 70mg 70 mg PO WEEKLY 07/08/21 07/08/21 History Tablet] Atorvastatin Calcium [Lipitor 10mg 10 mg PO HS 07/08/21 07/08/21 History Tab] Bisoprolol/Hydrochlorothiazide 1 each PO DAILY 07/08/21 07/08/21 History [Bisoprolol-Hctz 5-6.25 mg Tab] Calcium Carbonate/Vitamin D3 1 tab PO BID 07/08/21 07/08/21 History [Super Calcium 600-Vit D3 400] Fluticasone/Umeclidin/Vilanter 1 puff IH DAILY 07/08/21 07/08/21 History [Trelegy Ellipta 100-62.5-25] Hydrocodone/Acetaminophen [Lortab 1 tab PO QID 07/08/21 07/08/21 History 10/325mg tablet] Ipratropium/Albuterol Sulfate 3 ml IH Q4HP PRN 07/08/21 07/08/21 History [Iprat-Albut 0.5-3(2.5) mg/3 ml] Pantoprazole Sodium 40 mg PO DAILY 07/08/21 07/08/21 History Trazodone HCl 150 mg PO HS 07/08/21 07/08/21 History predniSONE [Deltasone 10mg tablet] 10 mg PO DAILY 07/08/21 07/08/21 History Allergies Allergy/AdvReac Type Severity Reaction Status Date / Time lamotrigine [From LAMICTAL] Allergy Unknown Verified 06/02/21 10:30 Exam - Constitutional Constitutional:: Present: no acute distress, comfortable - HENMT Exam HENMT: Present: normocephalic, atraumatic - Eye Exam Eyes:: Present: normal appearance both eyes and related structures - Neck Exam Neck:: Present: normal visual inspection - Respiratory Exam Respiratory:: Present: able to speak
[2021-07-09 09:26] LABS: Adenovirus,PCR Not Detected (NotDetected); Bordetella Pertussis Not Detected (NotDetected); Chlamydophila Pneumoniae, PCR Not Detected (NotDetected); Coronavirus 229E Not Detected (NotDetected); Coronavirus NL63 Not Detected (NotDetected); Coronavirus OC43 Not Detected (NotDetected); Coronovirus HKU1,PCR Not Detected (NotDetected); Human Metapneumovirus Not Detected (NotDetected); Influenza A, PCR Not Detected (NotDetected); Influenza AH1, 2009 Not Detected (NotDetected); Influenza AH1, PCR Not Detected (NotDetected); Influenza AH3,PCR Not Detected (NotDetected); Influenza B, PCR Not Detected (NotDetected); Mycoplasma Pneumoniae, PCR Not Detected (NotDetected); Parainfluenza 1, PCR Not Detected (NotDetected); Parainfluenza 2, PCR Not Detected (NotDetected); Parainfluenza 3, PCR Not Detected (NotDetected); Parainfluenza 4, PCR Not Detected (NotDetected); Respiratory Syncytial Virus Not Detected (NotDetected); Rhinovirus/Enterovirus Not Detected (NotDetected)
--- NOTE | 2021-07-09 09:53 | HMH.HP ---
*Admission Date: 07/08/21 *Chief complaint: Shortness of breath *History of present illness: 61-year-old female patient presented to the [facility] emergency department with progressively worsening shortness of breath over the last week. Reports she has been short of breath and having pain with inspiration. She reports she was so short of breath she was unable to ambulate to the restroom, she does report she is on home O2 at 2 L as needed which she uses especially at night. She also reports fever/chills x1 day, she emesis yesterday x2, but denies presently and also denies abdominal pain. In the emergency department she was given azithromycin, ceftriaxone, methylprednisolone IV and duo nebs. Chest x-ray reveals bibasilar pneumonia [facility] History I have reviewed the patient's past medical history: Yes Medical History: Reports:: Anxiety, Chronic Obstructive Pulmonary Disease (COPD), Depression, Gastroesophageal Reflux Disease(GERD), Hyperlipidemia, Hypertension Denies:: Cancer, Diabetes Mellitus Type 1, Diabetes Mellitus Type 2, Internal Pacemaker, MRSA, Seizures *Have you ever received a pneumonia vaccine?: Yes *Have you received a flu vaccine this season?: Yes Other Medical History: Reports: Arthritis, Other. Denies: Blood Transfusion Reaction Laterality Cases: Right: Other, Bilateral: Lumpectomy, Tonsillectomy Other Surgeries: Yes: Colonoscopy (x2), Dilation and Curettage, Other. No: Pacemaker Amputation: No Fractures: Yes (right wrist) - *Social History Last grade of school completed: Some college Smoking Status: Former smoker Tobacco Type: cigarettes # Packs/Day (cigarettes): 0 #Yrs smoked (if former smoker): 40 Alcohol Intake: never Alcohol Intake Frequency:: a few times a week Substance Use Type: denies use *Occupational Status:: disabled Housing: house Household Members: none *Travel in the last 8 weeks: None - Psychiatric History Pschychiatric History:: Reports:: Anxiety, Depression Family Hx:: No significant family history Review of Systems - Review of Systems Review of systems:: pertinent systems reviewed and negative unless documented below - Constitutional Reports fatigue, Reports fever(s), Reports lack of energy - Eyes Denies blurry vision, Denies double vision - ENT Denies dizziness, Denies hearing loss - *Cardiovascular Reports shortness of breath, Reports shortness of breath with activity, Denies chest pain, Denies chest pain with activity - *Respiratory Reports change in phlegm color, Reports chest congestion, Reports cough, Reports shortness of breath, Reports shortness of breath with activity - *Gastrointestinal Denies abdominal pain, Denies change in stools - *Musculoskeletal Denies joint pain, Denies joint swelling - Integumentary/Breasts Denies change in skin color, Denies rash - *Neurologic Reports headache(s) (Mild to moderate GOLDSTEIN currently), Denies confusion, Denies localized weakness, Denies tingling/numbness/burning sensations - Psychiatric Denies lack of enjoyment, Denies hearing things others do not hear - Endocrine Denies cold intolerance, Denies increased thirst - Hematologic/Lymphatic Denies easy bleeding, Denies easy bruising - Allergic/Immunologic Denies GI upset with certain foods, Denies tongue swelling Meds Home Medications Medication Instructions Recorded Confirmed Type Quetiapine Fumarate 200 mg PO HS 10/03/20 07/08/21 History Ergocalciferol (Vitamin D2) 25 mcg PO DAILY 12/12/20 07/08/21 History [Vitamin D2] clonazepam 0.5 mg tablet 0.5 mg PO BID #60 tab 06/02/21 07/08/21 Rx Alendronate Sodium [Fosamax 70mg 70 mg PO WEEKLY 07/08/21 07/08/21 History Tablet] Atorvastatin Calcium [Lipitor 10mg 10 mg PO HS 07/08/21 07/08/21 History Tab] Bisoprolol/Hydrochlorothiazide 1 each PO DAILY 07/08/21 07/08/21 History [Bisoprolol-Hctz 5-6.25 mg Tab] Calcium Carbonate/Vitamin D3 1 tab PO BID 07/08/21 07/08/21 History [Super Calcium 6
--- NOTE | 2021-07-09 19:46 | PC.NURSE ---
No change from last assessment through out shift.
[2021-07-10] VITALS (11 sets, daily range): BP systolic 110–160; BP diastolic 70–101; PULSE 61–121; RESP 18–24; TEMP 36.6–36.8; O2SAT 4–98; BMI 22.7
--- NOTE | 2021-07-10 04:28 | PC.NURSE ---
Patient has rested well this shift. C/o minimal pain, gave PRN medication according to APR. No other changes this shift.
[2021-07-10 07:24] LABS: Basophils % 0.2 % (0.1-2.0); Eosinophils % 0.3 % (0.1-12.0); Hematocrit 36.1 % (37.0-47.0); Hemoglobin 11.8 g/dL (12.2-16.2); Lymphocytes % 7.6 % (10-50); Mean Corpuscular HGB Conc 32.7 g/dL (31.8-35.4); Mean Corpuscular Hemoglobin 33.1 pg (27.0-31.2); Mean Platelet Volume 8.6 fl (7.4-10.4); Monocytes # 0.5 K/mm3 (0.1-1.0); Monocytes % 4.3 % (1.7-9.3); Neutrophils # 11.1 K/mm3 (1.8-7.8); Neutrophils % 87.5 % (37.0-80.0); Platelet Count 226 K/mm3 (142-424); Red Blood Count 3.57 M/mm3 (4.20-5.40); Red Cell Distribution Width 14.3 % (11.5-17.5); White Blood Count 12.6 K/mm3 (4.8-10.8)
[2021-07-10 07:29] LABS: MANUAL DIFFERENTIAL MANUAL DIFFERENTIAL (MANUAL DIFF)
[2021-07-10 07:33] LABS: Alanine Aminotransferase 32 U/L (12-78); Albumin Level 3.9 g/dl (3.5-5.0); Albumin/Globulin Ratio 1.5 (1.1-1.8); Alkaline Phosphatase 76 U/L (38-126); Anion Gap 10.7 mEq/L (5-15); Aspartate Amino Transferase 32 U/L (14-36); Bilirubin,Total 0.2 mg/dl (0.2-1.3); Blood Urea Nitrogen 8 mg/dl (7-17); Carbon Dioxide 29 mmol/L (22.0-30.0); Chloride 107 mmol/L (98-107); Creatinine Clearance Estimated 50 mL/min (50-200); Estimated Glomerular Filt Rate 162 ml/min (>60); GFR (African American) 196 ML/MIN (>60); Globulin 2.6 g/dL (1.3-3.2); Glucose 142 mg/dl (74-100); Potassium 3.7 mmoL/L (3.5-5.1); Sodium 143 mmol/L (136-145); Total Protein,Serum 6.5 g/dl (6.3-8.2)
[2021-07-10 07:52] LABS: Anisocytosis 1+; Lymphocytes % 3 % (10-50); Macrocytosis 1+; Monocytes % 3 % (2-9); Neutrophils % 85 % (42-76); Total Cells Counted 100
[2021-07-10 07:53] LABS: Platelet Estimate Normal
--- NOTE | 2021-07-10 09:21 | XR_ITS ---
FINAL REPORT CLINICAL HISTORY: Hypoxia FINDINGS: SINGLE VIEW CHEST. The heart is normal in size. The mediastinum is unremarkable. There is stable mild bibasilar atelectasis or scarring. There is no pneumothorax. There is dextroscoliosis, stable. IMPRESSION: Stable findings as above. Reviewed, Interpreted and Dictated by Bennie Mann III, MD Transcribed by Janae Linares Authenticated by Bennie Mann III, MD on 07/10/2021 11:23:16 AM [facility]
--- NOTE | 2021-07-10 09:35 | PC.NURSE ---
RESP CARE NOTE:Pt oxygen weaned to 1 lpm nasal cannula per Dr Coffman. Oxygen may be increased to 2 lpm as per home use when exerting herself. Will continue to monitor SPO2 as needed.
--- NOTE | 2021-07-10 09:41 | HMH.ACPN2 ---
Internal Medicine - PN: Subj *Date: 07/10/21 *Time: 09:41 Interval history: 61-year-old female patient sitting up in bed she reports less short of breath today than yesterday. Current oxygenation 96% on 4 L per nasal cannula. She continues to receive azithromycin, ceftriaxone, methylprednisone IV and DuoNebs. potassium this morning 3.7 Exam Vital signs and Labs for Last 24 Hours: Temp Pulse Resp BP Pulse Ox 98.1 F 105 H 18 110/70 4 L 07/10/21 08:00 07/10/21 08:00 07/10/21 08:00 07/10/21 08:00 07/10/21 08:51 Laboratory Results - last 24 hr 07/09/21 09:22: Chlamy pneumoniae PCR Not detected, Adenovirus (PCR) Not detected, B. pertussis DNA (PCR) Not detected, Coronavirus OC43 (PCR) Not detected, Coronavirus HKU1 (PCR) Not detected, Coronavirus 229E (PCR) Not detected, Coronavirus NL63 (PCR) Not detected, Human Metapneumovir PCR Not detected, Influenza A (H1) PCR Not detected, Influ A (H1N1/09) PCR Not detected, Influenza A (H3) PCR Not detected, Influenza Type A (PCR) Not detected, Influenza Type B (PCR) Not detected, M. pneumoniae (PCR) Not detected, Parainfluenza 1 (PCR) Not detected, Parainfluenza 2 (PCR) Not detected, Parainfluenza 3 (PCR) Not detected, Parainfluenza 4 (PCR) Not detected, RSV (PCR) Not detected, Entero/Rhino (PCR) Not detected 07/10/21 06:45: Sodium 143, Potassium 3.7, Chloride 107, Carbon Dioxide 29, Anion Gap 10.7, BUN 8, Creatinine 0.40 L, Estimated Creat Clear 50, Estimated GFR 162, Est GFR ( Amer) 196, Glucose 142 H, Calcium 9.0, Total Bilirubin 0.2, AST 32 D, ALT 32 D, Alkaline Phosphatase 76, Total Protein 6.5, Albumin 3.9, Globulin 2.6, Albumin/Globulin Ratio 1.5 07/10/21 06:45: WBC 12.6 H, RBC 3.57 L, Hgb 11.8 L, Hct 36.1 L, MCV 101.0 H, MCH 33.1 H, MCHC 32.7, RDW 14.3, Plt Count 226, MPV 8.6, Neut % (Auto) 87.5 H, Lymph % (Auto) 7.6 L, Carl[place] % (Auto) 4.3, Eos % (Auto) 0.3, Baso % (Auto) 0.2, Neut # (Auto) 11.1 H, Lymph # (Auto) 1.0, [place] # (Auto) 0.5, Eos # (Auto) 0.0, Baso # (Auto) 0.0, Total Counted 100, Neutrophils % (Manual) 85 H, Band Neutrophils % 9.0 H, Lymphocytes % (Manual) 3 L, Monocytes % (Manual) 3, Platelet Estimate Normal, Anisocytosis 1+, Macrocytosis 1+ I & O for Last 24 hours: Intake & Output 07/07/21 07/08/21 07/09/21 07/10/21 23:59 23:59 23:59 23:59 Intake Total 60 / 60 1080 / 1080 240 / 240 Balance 60 / 60 1080 / 1080 240 / 240 Weight 122 lb 4 oz 120 lb 9.6 oz 120 lb 6.4 oz Microbiology Reports for the Last 24 Hours: Microbiology 07/08/21 07:10 Blood Blood Culture - Preliminary NO GROWTH AFTER 48 HOURS 07/08/21 07:10 Blood Blood Culture - Preliminary NO GROWTH AFTER 48 HOURS 07/09/21 13:55 Sputum - Expectorated Sputum Gram Stain - Final - Constitutional no acute distress, chronically ill appearing - *Routine HEENT Exam Head: Present: normocephalic Eye: Present: EOMI ENT: Present: mucous membranes moist - *Routine Neck Exam Present: trachea midline. Absent: tracheal deviation - *Routine Respiratory Exam Present: wheezes, crackles. Absent: accessory muscle use - *Routine Cardiovascular Exam Present: RRR - *Routine Abdominal Exam Present: soft, normoactive bowel sounds. Absent: tenderness, firm - *Routine Extremities Exam Present: full ROM, pulses intact. Absent: cyanosis, clubbing, edema, calf tenderness - *Routine Skin Exam Present: intact, dry. Absent: cyanosis, erythema - *Routine Neurological Exam Present: alert, oriented X3. Absent: motor deficit - Routine Psychiatric Exam Present: normal affect, normal thought process. Absent: visual hallucinations Assessment and Plan (1) Acute and chronic respiratory failure Status: Acute Category: Medical Code(s): J96.20 - Acute and chronic respiratory failure, unspecified whether with hypoxia or hypercapnia (2) Community acquired bacterial pneumonia Status: Acute Category: Medical Code(s): J15.9
--- NOTE | 2021-07-10 10:05 | PC.NURSE ---
Pt up to shower (using shower chair) with O2 intact @ 4L
--- NOTE | 2021-07-10 10:26 | PC.NURSE ---
Radiology at bs to perform chest xray.
--- NOTE | 2021-07-10 10:32 | HMH.PULMPN ---
Internal Medicine - PN: Subj *Date: 07/10/21 *Time: 10:32 Interval history: No acute respiratory vents overnight. Patient admits very minimal improvement in symptoms. Exam - Constitutional Constitutional:: Present: no acute distress, comfortable - HENMT Exam HENMT: Present: normocephalic - Eye Exam Eyes:: Present: normal appearance both eyes and related structures - Neck Exam Neck:: Present: normal visual inspection - Respiratory Exam Respiratory:: Present: able to speak in complete sentences, respiratory distress. Absent: accessory muscle use, wheezing - Cardiovascular Exam Cardiac:: Present: S1, S2 - GI Exam GI:: Present: soft - Skin Exam Skin: Present: warm, no rash - Neurological Exam Neurological: Present: alert, awake, normal cognition - Extremities Exam Extremities: Present: no cyanosis, no clubbing, no edema Assessment and Plan (1) Acute and chronic respiratory failure Status: Acute Category: Medical Code(s): J96.20 - Acute and chronic respiratory failure, unspecified whether with hypoxia or hypercapnia (2) Community acquired bacterial pneumonia Status: Acute Category: Medical Code(s): J15.9 - Unspecified bacterial pneumonia (3) COPD exacerbation Status: Acute Category: Medical Code(s): J44.1 - Chronic obstructive pulmonary disease with (acute) exacerbation (4) Hypokalemia Status: Acute Category: Medical Code(s): E87.6 - Hypokalemia (5) Hypomagnesemia Status: Acute Category: Medical Code(s): E83.42 - Hypomagnesemia - Assessment and plan all Dx Assessment and Plan for all problems:: #Acute on chronic hypoxic respiratory failure: #Community-acquired pneumonia: #COPD exacerbation: 61-year-old presents worsening respiratory disease along with subjective fevers and chills. Admits using trilogy at baseline. Also using nocturnal oxygen therapy along with daytime oxygen therapy on as-needed basis at 2-2 and half liters. Resented worsening respiratory distress along with subjective fevers chills, cough and productive phlegm. Chest x-ray bilateral airspace disease. CT from March 2009 to the bilateral diffuse emphysematous changes along with left fissure based nodule/airspace disease noted. This is less likely to Noted to have moderate (not severe) COPD with FEV1 at 54% predicted 1.26 L along with reversibility at 16% and 180 cc ABG on admission hypoxic respiratory failure with a PO2 of 60.4. pH is 7.40 and a PCO2 of 42.5. Leukocytosis noted. COVID-19 and flu PCR negative. Significant electrolyte derangements noted on admission which include hypokalemia 2.7 improved to 3.2 today along with hypomagnesemia at 1.1 now at 0.9. Lactate within normal limits at 1.3. Hemodynamically stable. Patient was initiated ceftriaxone azithromycin along with duo nebs and Trelegy 100 inhaler along with methylprednisolone 125 IV daily. Interval update: No respiratory events overnight. Patient admits only minimal improvement however auscultation significant improvement in her breath sounds. Weaned to 1 L this morning with saturations maintained at 92% and above. Repeat chest x-ray from this morning relatively stable with no acute changes. Plan: -Continue nasal cannula can supplementation to maintain O2 saturation goal of 90% and above, weaned to 1 L this morning. -DuoNebs every 6 hours along with budesonide every 12 scheduled. Patient can be discharged home triple inhaler therapy which include Trelegy -Follow-up with sputum cultures, will do induction today. No prior positive blood cultures available cultures on this admission pending -Continue ceftriaxone azithromycin, wean to levofloxacin upon discharge to complete a total of 5-day course -Prednisone 40 mg daily for 5 days Thank you for involving pulmonary in this patient care. We will follow the patient in pulmonary clinic in 2 weeks postdischarge.
--- NOTE | 2021-07-10 15:05 | PC.NURSE ---
Pt rang out stating that she almost didn't make it back to bed from the bathroom r/t not feeling like she had enough oxygen. Pt was currently on 1L NC. O2 sats range 91-93%, but her pulse was 130s. Pt was sitting on side of the bed, shaking and with labored breathing. Her O2 was increased to 2.5L NC (per pt's request stating that that is what she needs at home). Pt within about 30 seconds appeared more calm, satisfied, and breathing was not as labored. Pulse was now 120, 122, and O2 sat 95%. Pulse ox left on pt for now to monitor her.
--- NOTE | 2021-07-10 16:52 | PC.NURSE ---
Pt medicated with an additional [place] 5/325 for unrelieved back pain.
[2021-07-11] VITALS: BP 126/76; PULSE 83; RESP 18; TEMP 36.6; O2SAT 94
--- NOTE | 2021-07-11 03:34 | PC.NURSE ---
Patient has remained on 2.5LNC, oxygen saturation has remained 90% and above. Patient has voiced no complaints to this RN.
[2021-07-11 04:00] VITALS: BP 145/97; PULSE 96; RESP 18; TEMP 36.6; O2SAT 91
[2021-07-11 05:27] VITALS: BMI 22.6
[2021-07-11 06:08] VITALS: PULSE 90; PULSE 94; O2SAT 92
[2021-07-11 07:54] LABS: Basophils # 0.1 K/mm3 (0-0.2); Basophils % 1.5 % (0.1-2.0); Eosinophils % 0.3 % (0.1-12.0); Hematocrit 34.1 % (37.0-47.0); Hemoglobin 11.2 g/dL (12.2-16.2); Lymphocytes # 1.6 K/mm3 (0.7-4.5); Lymphocytes % 16.5 % (10-50); Mean Corpuscular HGB Conc 32.9 g/dL (31.8-35.4); Mean Corpuscular Hemoglobin 33.5 pg (27.0-31.2); Mean Corpuscular Volume 101.9 fl (81-99); Mean Platelet Volume 9.4 fl (7.4-10.4); Monocytes # 0.5 K/mm3 (0.1-1.0); Monocytes % 5.5 % (1.7-9.3); Neutrophils # 7.2 K/mm3 (1.8-7.8); Neutrophils % 76.2 % (37.0-80.0); Platelet Count 238 K/mm3 (142-424); Red Blood Count 3.35 M/mm3 (4.20-5.40); Red Cell Distribution Width 14.2 % (11.5-17.5); White Blood Count 9.5 K/mm3 (4.8-10.8)
[2021-07-11 07:57] LABS: Chloride 107 mmol/L (98-107); Potassium 3.5 mmoL/L (3.5-5.1); Sodium 141 mmol/L (136-145)
[2021-07-11 07:59] LABS: Blood Urea Nitrogen 11 mg/dl (7-17); Creatinine Clearance Estimated 50 mL/min (50-200); Estimated Glomerular Filt Rate 225 ml/min (>60); GFR (African American) 273 ML/MIN (>60)
[2021-07-11 08:00] VITALS: BP 126/62; PULSE 102; RESP 18; TEMP 36.8; O2SAT 93
[2021-07-11 08:00] LABS: Alanine Aminotransferase 27 U/L (12-78); Albumin Level 3.5 g/dl (3.5-5.0); Albumin/Globulin Ratio 1.4 (1.1-1.8); Alkaline Phosphatase 68 U/L (38-126); Anion Gap 7.5 mEq/L (5-15); Aspartate Amino Transferase 32 U/L (14-36); Bilirubin,Total 0.6 mg/dl (0.2-1.3); Calcium 9.1 mg/dl (8.4-10.2); Carbon Dioxide 30 mmol/L (22.0-30.0); Globulin 2.5 g/dL (1.3-3.2); Glucose 111 mg/dl (74-100)
--- NOTE | 2021-07-11 09:32 | HMH.DCSUM ---
General - General Admission date:: 07/08/21 Discharge date: 07/11/21 HPI HPI: 61-year-old female patient presented to the [facility] emergency department with progressively worsening shortness of breath over the last week. Reports she has been short of breath and having pain with inspiration. She reports she was so short of breath she was unable to ambulate to the restroom, she does report she is on home O2 at 2 L as needed which she uses especially at night. She also reports fever/chills x1 day, she emesis yesterday x2, but denies presently and also denies abdominal pain. In the emergency department she was given azithromycin, ceftriaxone, methylprednisolone IV and duo nebs. Chest x-ray reveals bibasilar pneumonia Hospital Course Hospital Course: this patient presented to the ed - HAS BEEN GETTING PROGRESSIVELY WORSE OVER THE LAST WEEK. PT PRESENTS WITH SHORTNESS OF AIR AND PAIN WITH INSPIRATION. SP02 78% ON ROOM AIR UPON ARRIVAL. PT PLACED ON 02 2L- INCREASED SP02 TO 85%. PT THEN PLACED ON 4L Chyna is a 61-year-old female with COPD on 2.5 L of O2 at nighttime is presenting for chief complaint of worsening shortness of breath. Patient states things have been getting worse for the past week but have specifically worsened since 1 AM this morning. Patient was so short of air she was not able to ambulate to the restroom. She also describes a chest tightness/pain with inspiration which has now resolved after DuoNeb x2. Patient also reports subjective fever and chills starting today but denies congestion, rhinorrhea, sore throat, cough or hemoptysis. Vomited multiple times yesterday evening but currently denies abdominal pain, diarrhea, dysuria. Denies acute limb swelling or history of DVT/PE. Patient reports she has taken all of her medications this morning, including medications for high blood pressure. pt was found to be in resp distress - presenting with worsening dyspnea on exertion for 1 day, associated with subjective fever, chills and fatigue. Differential diagnosis includes, but is not limited to, viral versus bacterial pneumonia, COPD exacerbation, ACS/cardiac pathology, electrolyte derangement, multiorgan dysfunction, other. On initial exam, patient is hemodynamically stable and nontoxic-appearing. On exam reveals diminished lung sounds, expiratory wheeze and rhonchi on left after 2 DuoNeb's. Patient requires increased oxygen requirement of 4 L to have appropriate SPO2 saturations of 88 to 92%. Patient was evaluate CBC, CMP, CRP, ESR, lactic acid, procalcitonin, magnesium, troponin, BNP, blood cultures, chest x-ray. Lab work is significant for elevated CRP of 30.9 and procalcitonin of 3.85 and bandemia. Chest x-ray shows IMPRESSION: Patchy bibasilar airspace opacities may reflect atelectasis versus aspiration or pneumonia. Given increased oxygen requirement, subjective fever and lab work, patient's presentation is concerning for bacterial pneumonia. She was treated with IV ceftriaxone and azithromycin. In addition, patient had hypomagnesemia and hypokalemia, electrolytes were replaced in the emergency department. She was given p.o. Tylenol and ibuprofen for her headache. Admitted for inpatient treatment. pt was started on abx and steroids and resp treatments and was seen by pul consult-pt presents worsening respiratory disease along with subjective fevers and chills. Admits using trilogy at baseline. Also using nocturnal oxygen therapy along with daytime oxygen therapy on as-needed basis at 2-2 and half liters. Resented worsening respiratory distress along with subjective fevers chills, cough and productive phlegm. Chest x-ray bilateral airspace disease. CT from March 2009 to the bilateral diffuse emphysematous changes along with left fissure based nodule/airspace disease noted. This is less likely to Noted to have moderate (not severe) COPD with FEV1 at 54% predicted 1.26 L along with rev
--- NOTE | 2021-07-11 10:59 | PC.NURSE ---
pt has been discahrged from floor via wheelchair. Voiced understanding of all discahrge education and follow up appts. took all of her belongings with her.
--- NOTE | 2021-07-15 11:54 | CARE MANAGER ---
Attempted to call patient again, no answer. I left a message with request to call us back.
== END 2021-07-11 10:55 | disposition home or self-care (01) | DRG 193 ==
LOC: ER 08:48 → 2ND 13:03
PROVIDERS: Emergency Medicine; Family Medicine; Nurse Practitioner Family; Admitting Provider Emergency Medicine; Emergency Provider Emergency Medicine; PCP Emergency Medicine; Visit Provider Emergency Medicine
DX: J15.9 Unspecified bacterial pneumonia (principal); J96.20 Acute and chronic respiratory failure, unspecified whether with hypoxia or hypercapnia; J44.1 Chronic obstructive pulmonary disease with (acute) exacerbation; J44.0 Chronic obstructive pulmonary disease with (acute) lower respiratory infection; E83.42 Hypomagnesemia; E87.6 Hypokalemia; F41.9 Anxiety disorder, unspecified; F32.A Depression, unspecified; K21.9 Gastro-esophageal reflux disease without esophagitis; Z87.891 Personal history of nicotine dependence; Z20.822 Contact with and (suspected) exposure to COVID-19
CPT/HCPCS: 36415; 71045; 80048; 80053; 80076; 82803; 83605; 83735; 83880; 84145; 84484; 85007; 85025; 85651; 86140; 87040; 87070; 87205; 87486; 87581; 87632; 87798; 93005; 94640; 94761; 96375; 99285; C9803; J0456; J0696; J3475; U0003; U0005

== ENCOUNTER → 2021-08-25 09:10 | Outpatient (CLI) | payer MEDICARE, MEDICAID, SELFPAY ==
--- NOTE | 2021-08-25 09:17 | XR_ITS ---
FINAL REPORT CLINICAL HISTORY: s/p rt wrist surgery 12/11/20 COMPARISON: 05/06/2021 FINDINGS: RIGHT WRIST Three views were obtained. There are chronic fractures of the distal radius and ulnar styloid process. Mild degenerative changes are present. The bones are osteopenic. There are soft tissue calcifications in the forearm, wrist and radial aspect of the hand. Soft tissue swelling is identified. IMPRESSION: Chronic appearing findings as above. Findings are stable since previous. Reviewed, Interpreted and Dictated by Bennie Mann III, MD Transcribed by Rachel Anderson Authenticated and [facility]
== END ==
PROVIDERS: PCP Emergency Medicine; Visit Provider Orthopaedic Surgery
DX: S62.101A Fracture of unspecified carpal bone, right wrist, initial encounter for closed fracture (principal)
CPT/HCPCS: 73110

== ENCOUNTER → 2021-09-04 11:08 | Outpatient (CLI) | payer MEDICARE, MEDICAID, SELFPAY | PROVIDERS: PCP Emergency Medicine; Visit Provider Internal Medicine Pulmonary Disease | DX: R06.09 Other forms of dyspnea (principal) | CPT/HCPCS: 94762 ==

== ENCOUNTER → 2021-09-09 18:08 | Outpatient (CLI) | payer MEDICARE, MEDICAID, SELFPAY ==
[2021-09-09 13:38] LABS: Coronavirus 19, PCR Not Detected (NotDetected); Influenza A, PCR Not Detected (NotDetected); Influenza B, PCR Not Detected (NotDetected)
[2021-09-09 14:05] LABS: Opiate Screen,Urine Positive ng/ml (<300)
[2021-09-09 14:06] LABS: Phencyclidine Screen,Urine Negative ng/ml (<25)
[2021-09-09 14:07] LABS: Benzodiazepines Screen,Urine Negative ng/ml (<200)
[2021-09-09 14:08] LABS: Amphetamine/Metha Screen,Urine Negative ng/ml (<1000); Barbiturates Screen,Urine Negative ng/ml (<200)
[2021-09-09 14:09] LABS: Cannabinoid Screen,Urine Negative ng/ml (<50); Cocaine Screen,Urine Negative ng/ml (<300)
[2021-09-09 14:10] LABS: Methadone Screen,Urine Negative ng/ml (<300)
== END ==
PROVIDERS: PCP Emergency Medicine; Visit Provider Emergency Medicine
DX: R50.9 Fever, unspecified (principal); M54.16 Radiculopathy, lumbar region; Z79.899 Other long term (current) drug therapy; Z20.822 Contact with and (suspected) exposure to COVID-19
CPT/HCPCS: 80305; C9803; U0003; U0005

== ENCOUNTER → 2021-09-16 14:08 | Outpatient (CLI) | payer MEDICARE, MEDICAID, SELFPAY | PROVIDERS: PCP Emergency Medicine; Visit Provider Surgery | DX: Z01.812 Encounter for preprocedural laboratory examination (principal); Z20.822 Contact with and (suspected) exposure to COVID-19; Z12.11 Encounter for screening for malignant neoplasm of colon | CPT/HCPCS: C9803; U0003; U0005 ==

== ENCOUNTER 2021-09-18 07:20 | Day surgery (SDC) | payer MEDICARE, MEDICAID, SELFPAY ==
[2021-09-18 07:38] VITALS: BP 143/85; PULSE 86; RESP 18; TEMP 36.6; O2SAT 95; BMI 21.7
[2021-09-18 08:08] VITALS: O2SAT 95
--- NOTE | 2021-09-18 08:13 | P.PN_ITS ---
[facility] Anesthesia Checklist - Patient Identification Patient Identification: Arm Band - Structural Data Admitted From: Home Planned Operative Procedure/s: Colonoscopy Consent for Planned Operative Procedure(s) Verified: Yes - NPO Status Verified Time NPO: 04:00 (Prep) - Additional verifications Anesthesia Reactions: No Hx Blood Transfusions: No Blood Transfusion Reaction: Yes - Airway Assessment C-Spine Mobility Assessed: Yes TMJ Mobility Assessed: Yes Dentition: Poor Dentition - Neurological Assessment Level of Consciousness: Awake Hx Seizures: No Numbness or tingling in extremities: No - Anesthesia Plan Anesthesia Risk discussed: Yes Anesthesia Plan: Verified ASA Class: III Anesthesia Type: MAC [facility] History Medical History: Reports:: Anxiety, Chronic Obstructive Pulmonary Disease (COPD), Depression, Gastroesophageal Reflux Disease(GERD), Hyperlipidemia, Hypertension Denies:: Cancer, Diabetes Mellitus Type 1, Diabetes Mellitus Type 2, Internal Pacemaker, MRSA, Seizures *Have you ever received a pneumonia vaccine?: Yes *Have you received a flu vaccine this season?: Yes Other Medical History: Reports: Arthritis, Blood Transfusion Reaction, Other Anesthesia experience/problems:: None Laterality Cases: Right: Other, Bilateral: Cataract, Lumpectomy, Tonsillectomy Other Surgeries: Yes: No Previous Surgery, Colonoscopy, Dilation and Curettage, Other. No: Pacemaker Amputation: No Fractures: Yes (right wrist) - *Social History Last grade of school completed: Some college Smoking Status: Former smoker Tobacco Type: cigarettes # Packs/Day (cigarettes): 0 #Yrs smoked (if former smoker): 40 Alcohol Intake: never Alcohol Intake Frequency:: a few times a week Substance Use Type: denies use *Occupational Status:: unemployed Housing: house Household Members: none *Travel in the last 8 weeks: None - Psychiatric History Pschychiatric History:: Reports:: Anxiety, Depression Family Hx:: No significant family history
[2021-09-18 09:10] VITALS: BP 100/59; PULSE 76; RESP 18; TEMP 36.3; O2SAT 93
--- NOTE | 2021-09-18 09:14 | HMH.SCOPE ---
- Procedure: Date: 09/18/21 Patient Date of :: 1960 Procedure Performed:: Total colonoscopy to terminal ileum with polypectomy using biopsy forceps and snare Indications:: I had performed a colonoscopy on her April 2019 as screening for positive Cologuard. She was found to have 20 polyps and at least 15 of these were adenomatous with a 20 mm tubulovillous adenoma which was marked with Jennifer ink. Colonoscopy on 02/05/2020 revealed a couple of tubular adenomas and a serrated adenoma. I recommended repeat colonoscopy 1 year Performing Provider:: Bennie Evans MD Referring Provider:: Lincoln Low Sedation:: MAC sedation Procedure:: Patient was taken to endoscopy procedure room. She was positioned in lateral decubitus position. Adequate intravenous sedation was achieved with anesthesia titration of propofol. Variable stiffness Olympus colonoscope was inserted via the anus. It was advanced to the cecum ultimately. Ileocecal valve and appendiceal orifice were identified. Colonoscope was advanced a short distance into the terminal ileum which was grossly normal. Colonoscope was slowly withdrawn through the colon with careful surveillance. She had pandiverticulosis. At the splenic flexure there was a polyp removed with cold snare. In the proximal descending colon there were several polyps. His most notable was approximately a 15 mm polyp removed in a piecemeal fashion using cold snare. This was tattooed with Jennifer ink to ashley the area. Additional polyps removed with biopsy forceps and cold snare. In the rectosigmoid region there were 4 hyperplastic appearing polyps 3 of which were removed with biopsy forceps and 1 with cold snare. In the rectum retroflexion was performed. There was a hyperplastic appearing polyp in the distal rectum removed with cold biopsy forceps. Colonoscope was withdrawn. Findings:: Polyps as noted above Pandiverticulosis Recommendations:: Follow-up colonoscopy pending pathology. Given prior history and findings on this colonoscope likely no longer interval than 2 years Complications:: Not immediately apparent Estimated blood obtained (mL): 2
[2021-09-18 09:20] VITALS: BP 117/76; PULSE 74; RESP 18; TEMP 36.3; O2SAT 97
[2021-09-18 09:30] VITALS: BP 123/76; PULSE 77; RESP 18; TEMP 36.3; O2SAT 94
[2021-09-18 09:42] VITALS: BP 126/75; PULSE 70; RESP 18; TEMP 36.3; O2SAT 96
== END 2021-09-18 09:42 | disposition home or self-care (01) ==
LOC: OUTP 07:21
PROVIDERS: PCP Emergency Medicine; Visit Provider Surgery
PROC: 0DJD8ZZ Inspection of Lower Intestinal Tract, Via Natural or Artificial Opening Endoscopic (ICD-10-PCS; principal; 2021-09-18 08:30)
DX: Z12.11 Encounter for screening for malignant neoplasm of colon (principal); Z86.010 Personal history of colon polyps; E78.5 Hyperlipidemia, unspecified; K21.9 Gastro-esophageal reflux disease without esophagitis; I10 Essential (primary) hypertension; J44.9 Chronic obstructive pulmonary disease, unspecified; Z79.899 Other long term (current) drug therapy; K63.5 Polyp of colon
CPT/HCPCS: 45380; 45385; 88305; J2704

== ENCOUNTER → 2021-10-01 07:38 | Outpatient (CLI) | payer MEDICARE, MEDICAID, SELFPAY ==
--- NOTE | 2021-10-01 09:00 | PC.NURSE ---
PFT and 6 minute walk test completed without incident. Pt given Albuterol 0.083% given via HHN, per protocol, Pt tolerated tx well.
== END ==
PROVIDERS: PCP Emergency Medicine; Visit Provider Internal Medicine Pulmonary Disease
DX: R06.00 Dyspnea, unspecified (principal)
CPT/HCPCS: 94060; 94618; 94726; 94729

== ENCOUNTER 2021-10-21 09:29 | Outpatient (RCR) | payer MEDICARE, MEDICAID, SELFPAY | END 2021-10-21 10:30 | disposition home or self-care (01) | LOC: OT 09:29 | PROVIDERS: Visit Provider Orthopaedic Surgery | DX: M79.641 Pain in right hand (principal); R20.0 Anesthesia of skin | CPT/HCPCS: 97760 ==

== ENCOUNTER → 2021-10-28 09:39 | Outpatient (CLI) | payer MEDICARE, MEDICAID, SELFPAY ==
[2021-10-28 10:41] LABS: Alanine Aminotransferase 20 U/L (12-78); Albumin Level 4.4 g/dl (3.5-5.0); Alkaline Phosphatase 131 U/L (38-126); Aspartate Amino Transferase 59 U/L (14-36); Bilirubin,Direct 0.2 mg/dl (0.0-0.4); Bilirubin,Total 0.2 mg/dl (0.2-1.3); Chol/HDL Ratio 3.6 (1-3.5); Cholesterol 205 mg/dl (140-200); HDL Cholesterol 57 mg/dl (40-60); Total Protein,Serum 6.8 g/dl (6.3-8.2)
[2021-10-28 10:48] LABS: Triglycerides 876 mg/dl (30-150)
[2021-10-29 08:26] LABS: Direct LDL Cholesterol 29 mg/dL (100-129)
== END ==
PROVIDERS: PCP Emergency Medicine; Visit Provider Nurse Practitioner Family
DX: E78.5 Hyperlipidemia, unspecified (principal); I10 Essential (primary) hypertension; Z72.0 Tobacco use; R94.5 Abnormal results of liver function studies
CPT/HCPCS: 36415; 80061; 80076

== ENCOUNTER → 2021-11-03 10:05 | Outpatient (CLI) | payer MEDICARE, MEDICAID, SELFPAY ==
--- NOTE | 2021-11-03 10:06 | CA_ITS ---
APPROVED REPORT EXAM: Comprehensive 2D, Doppler, and color-flow Echocardiogram Bottle Washer Machine: STELLA Caceres, RVS Ht: 5 ft 1 in Wt: 115lbs BSA: 1.49 BP: 000/00 mmHg Indications: SOB, COPD, CP, Smoker, Scoliosis, HTN, HLD Echo Enhancing Agent Comments: Poor acoustics due to body habitus with lung impedence. 2D Dimensions IVSd 0.81 cm LVEF (Visual) 79.10 % PWd 1.01 cm LA Volume 24.80 mL LVDd 3.79 cm LA Volume Index 16.60 mL/m2 (M/F) 16-34 LVDs 2.01 cm Aortic Root 3.00 cm Left Atrium 2.61 cm LVOT 1.81 cm (M/F) 1.5-2.5 M-Mode Dimensions LA Diam 4.03 cm (1.9-4.0) Ao Diam 2.86 cm (2.0-3.7) TAPSE 2.04 (<1.7) LV Diastology E Decel Time 233.00 (160-240 msec) E/A Ratio 0.58 MED E' 6.70 (< 7 cm/sec) MED A' 12.20 cm/s E'/MED E' Ratio 6.30 (>14) LAT E' 5.40 (<10 cm/sec) LAT A' 8.60 cm/s E/LAT E' Ratio 7.81 (>14) Aortic Valve LVOT Max 89.00 (70-110 cm/s) LVOT VTI 18.16 cm AoV Peak Chano. 112.00 (50-130 cm/s) AO Peak GR. 5.00 mmHg AO Mean GR. 2.50 (<5 mmHg) AO VTI 21.88 (18-25 cm) TREY (VTI) 2.14 (2.5-4.5 cm2) Mitral Valve MV A Velocity 73.00 (40-130 cm/s) E/A Ratio 0.58 MV Decel. Time 233.00 (160-240 ms) MV PHT 85.00 ms Pulmonary Valve PV Peak Velocity 80.00 (50-150 cm/s) Left Ventricle Left atrium is mildly enlarged, left ventricle is normal size mild concentric left ventricular hypertrophy, estimated ejection fraction 55% with no regional wall motion abnormality, grade 1 diastolic dysfunction seen without tissue Doppler evidence of raise left atrial pressure. Right Ventricle Right atrium and right ventricle are mildly enlarged with normal contractility. Aortic Valve Aortic valve is minimally thickened and fibrosed there is no aortic stenosis or aortic insufficiency. Mitral Valve Mitral valve grossly normal, there is trace mitral regurgitation. Tricuspid Valve Tricuspid valve grossly normal, there is trace tricuspid regurgitation, tricuspid regurgitation jet velocity is inadequate for calculation of the right ventricular systolic pressure. Pulmonic Valve Pulmonic valve is poorly visualized. Great Vessels Aortic root is normal size. Inferior vena cava is poorly visualized. Pericardium No significant pericardial effusion noted. Conclusion 1. Mild biatrial enlargement, normal left ventricular size mild concentric left ventricular hypertrophy, estimated ejection fraction 55% with no regional wall motion abnormality, grade 1 diastolic dysfunction seen without tissue Doppler evidence of raise left atrial pressure. 2. Mildly enlarged right ventricle with normal contractility. 3. Trace mitral and tricuspid regurgitation. 4. No significant pericardial effusion 5. Inferior vena cava is poorly visualized. Electronically signed by : Rohith Armijo MD 11/04/2021 05:34:53
== END ==
PROVIDERS: PCP Emergency Medicine; Visit Provider Nurse Practitioner Family
DX: E78.5 Hyperlipidemia, unspecified (principal); Z72.0 Tobacco use; R06.09 Other forms of dyspnea
CPT/HCPCS: 93306

== ENCOUNTER → 2021-11-06 09:00 | Outpatient (CLI) | payer MEDICARE, MEDICAID, SELFPAY ==
[2021-11-06 19:15] LABS: Amphetamine/Metha Screen,Urine Negative ng/ml (<1000)
[2021-11-06 19:16] LABS: Barbiturates Screen,Urine Negative ng/ml (<200); Benzodiazepines Screen,Urine Positive ng/ml (<200)
[2021-11-06 19:17] LABS: Cannabinoid Screen,Urine Negative ng/ml (<50)
[2021-11-06 19:18] LABS: Cocaine Screen,Urine Negative ng/ml (<300); Methadone Screen,Urine Negative ng/ml (<300)
[2021-11-06 19:19] LABS: Opiate Screen,Urine Positive ng/ml (<300)
[2021-11-06 19:20] LABS: Phencyclidine Screen,Urine Negative ng/ml (<25)
[2021-11-06 19:32] LABS: Chol/HDL Ratio 2.9 (1-3.5); Cholesterol 227 mg/dl (140-200); HDL Cholesterol 79 mg/dl (40-60); Triglycerides 184 mg/dl (30-150); VLDL Cholesterol 37 mg/dL (0-40)
[2021-11-06 19:43] LABS: Direct LDL Cholesterol 108.01 mg/dL (100-129)
== END ==
PROVIDERS: PCP Emergency Medicine; Visit Provider Emergency Medicine
DX: M54.16 Radiculopathy, lumbar region (principal); E87.6 Hypokalemia; R07.9 Chest pain, unspecified
CPT/HCPCS: 80061; 80305

== ENCOUNTER → 2021-11-06 09:55 | Outpatient (CLI) | payer MEDICARE, MEDICAID, SELFPAY | PROVIDERS: PCP Emergency Medicine; Visit Provider Emergency Medicine | DX: M54.16 Radiculopathy, lumbar region (principal) ==

== ENCOUNTER → 2022-01-04 09:15 | Outpatient (CLI) | payer MEDICARE, MEDICAID, SELFPAY ==
[2022-01-04 14:00] LABS: Amphetamine/Metha Screen,Urine Negative ng/ml (<1000); Barbiturates Screen,Urine Negative ng/ml (<200)
[2022-01-04 14:01] LABS: Benzodiazepines Screen,Urine Negative ng/ml (<200)
[2022-01-04 14:02] LABS: Cannabinoid Screen,Urine Negative ng/ml (<50); Cocaine Screen,Urine Negative ng/ml (<300)
[2022-01-04 14:03] LABS: Methadone Screen,Urine Negative ng/ml (<300); Opiate Screen,Urine Positive ng/ml (<300)
[2022-01-04 14:04] LABS: Phencyclidine Screen,Urine Negative ng/ml (<25)
== END ==
PROVIDERS: PCP Emergency Medicine; Visit Provider Emergency Medicine
DX: M54.16 Radiculopathy, lumbar region (principal); Z79.899 Other long term (current) drug therapy
CPT/HCPCS: 80305

== ENCOUNTER → 2022-01-12 10:58 | Outpatient (CLI) | payer MEDICARE, MEDICAID, SELFPAY ==
--- NOTE | 2022-01-12 11:02 | XR_ITS ---
FINAL REPORT CLINICAL HISTORY: dyspnea, cough, h/o copd COMPARISON: 07/10/2021 FINDINGS: Two views of the chest were obtained. The heart size and pulmonary vascularity are within normal limits. The mediastinum is normal. There are right lung base opacities most worrisome for pneumonia. There is no pneumothorax. There is S shaped curvature of the thoracic spine. IMPRESSION: Right base opacities most worrisome for pneumonia. Reviewed, Interpreted and Dictated by Bennie Mann III, MD Transcribed by Neena Lynch Authenticated and [facility]
[2022-01-12 17:54] LABS: Adenovirus,PCR Not Detected (NotDetected); Bordetella Pertussis Not Detected (NotDetected); Chlamydophila Pneumoniae, PCR Not Detected (NotDetected); Coronavirus 19, PCR Not Detected (NotDetected); Coronavirus 229E Not Detected (NotDetected); Coronavirus NL63 Not Detected (NotDetected); Coronavirus OC43 Not Detected (NotDetected); Coronovirus HKU1,PCR Not Detected (NotDetected); Human Metapneumovirus Not Detected (NotDetected); Influenza A, PCR Not Detected (NotDetected); Influenza AH1, 2009 Not Detected (NotDetected); Influenza AH1, PCR Not Detected (NotDetected); Influenza AH3,PCR Not Detected (NotDetected); Influenza B, PCR Not Detected (NotDetected); Mycoplasma Pneumoniae, PCR Not Detected (NotDetected); Parainfluenza 1, PCR Not Detected (NotDetected); Parainfluenza 2, PCR Not Detected (NotDetected); Parainfluenza 3, PCR Not Detected (NotDetected); Parainfluenza 4, PCR Not Detected (NotDetected); Respiratory Syncytial Virus Not Detected (NotDetected); Rhinovirus/Enterovirus Not Detected (NotDetected)
== END ==
PROVIDERS: PCP Emergency Medicine; Visit Provider Student in an Organized Health Care Education/Training Program
DX: J44.9 Chronic obstructive pulmonary disease, unspecified (principal); R06.00 Dyspnea, unspecified; R05.9 Cough, unspecified; R50.9 Fever, unspecified
CPT/HCPCS: 71046; 87581; 87632; 87798; C9803; U0003; U0005

== ENCOUNTER → 2022-02-26 17:50 | Outpatient (CLI) | payer MEDICARE, MEDICAID, SELFPAY ==
[2022-02-26 15:00] LABS: Barbiturates Screen,Urine Negative ng/ml (<200); Benzodiazepines Screen,Urine Negative ng/ml (<200)
[2022-02-26 15:01] LABS: Amphetamine/Metha Screen,Urine Negative ng/ml (<1000)
[2022-02-26 15:02] LABS: Cannabinoid Screen,Urine Negative ng/ml (<50); Methadone Screen,Urine Negative ng/ml (<300)
[2022-02-26 15:03] LABS: Cocaine Screen,Urine Negative ng/ml (<300)
[2022-02-26 15:04] LABS: Opiate Screen,Urine Positive ng/ml (<300); Phencyclidine Screen,Urine Negative ng/ml (<25)
== END ==
PROVIDERS: PCP Emergency Medicine; Visit Provider Emergency Medicine
DX: M54.16 Radiculopathy, lumbar region (principal)
CPT/HCPCS: 80305

== ENCOUNTER → 2022-03-01 11:00 | Outpatient (CLI) | payer MEDICARE, MEDICAID, SELFPAY ==
--- NOTE | 2022-03-01 11:03 | XR_ITS ---
FINAL REPORT TECHNIQUE: Chest PA & Lateral CLINICAL HISTORY: Shortness of breath COMPARISON: December 2021 FINDINGS: 2 views of the chest were performed. The heart size is normal. The mediastinum is within normal limits. There is mild right base opacity. There is a small right pleural effusion. There is no pneumothorax. Dextroscoliosis is noted. IMPRESSION: Mild right base opacity could represent atelectasis or scarring. Reviewed, Interpreted and Dictated by Bennie Mann III, MD Transcribed by David Wren Authenticated and . [facility]
== END ==
PROVIDERS: PCP Emergency Medicine; Visit Provider Emergency Medicine
DX: R06.02 Shortness of breath (principal)
CPT/HCPCS: 71046

== ENCOUNTER 2022-03-02 09:01 | Day surgery (SDC) | payer MEDICARE, MEDICAID, SELFPAY ==
[2022-03-02 09:47] VITALS: BP 120/77; PULSE 91; RESP 18; TEMP 36.5; O2SAT 92; BMI 22.6
[2022-03-02 14:29] VITALS: BP 120/77; PULSE 91; RESP 18; TEMP 36.5; O2SAT 92
== END 2022-03-02 10:31 | disposition home or self-care (01) ==
LOC: OUTP 09:02
PROVIDERS: PCP Emergency Medicine; Visit Provider Ophthalmology
PROC: (CPT 66821; principal; 2022-03-02 09:00)
DX: H26.492 Other secondary cataract, left eye (principal); Z79.899 Other long term (current) drug therapy
CPT/HCPCS: 66821

== ENCOUNTER → 2022-03-11 09:10 | Outpatient (CLI) | payer MEDICARE, MEDICAID, SELFPAY ==
[2022-03-11 10:14] LABS: Basophils # 0.1 K/mm3 (0-0.2); Basophils % 1.1 % (0.1-2.0); Eosinophils # 0.2 K/mm3 (0.0-0.4); Eosinophils % 3.1 % (0.1-12.0); Hematocrit 39.1 % (37.0-47.0); Hemoglobin 12.6 g/dL (12.2-16.2); Lymphocytes # 2.2 K/mm3 (0.7-4.5); Lymphocytes % 28.8 % (10-50); Mean Corpuscular HGB Conc 32.2 g/dL (31.8-35.4); Mean Corpuscular Hemoglobin 33.2 pg (27.0-31.2); Mean Corpuscular Volume 103.1 fl (81-99); Mean Platelet Volume 7.7 fl (7.4-10.4); Monocytes # 0.5 K/mm3 (0.1-1.0); Monocytes % 6.8 % (1.7-9.3); Neutrophils # 4.5 K/mm3 (1.8-7.8); Neutrophils % 60.2 % (37.0-80.0); Platelet Count 316 K/mm3 (142-424); Red Cell Distribution Width 13.7 % (11.5-17.5); White Blood Count 7.5 K/mm3 (4.8-10.8)
[2022-03-11 10:28] LABS: Alanine Aminotransferase 16 U/L (12-78); Albumin Level 4.5 g/dl (3.5-5.0); Alkaline Phosphatase 101 U/L (38-126); Aspartate Amino Transferase 30 U/L (14-36); Bilirubin,Direct 0.3 mg/dl (0.0-0.4); Bilirubin,Indirect 0.5 mg/dL (0.0-0.9); Bilirubin,Total 0.8 mg/dl (0.2-1.3); Bilirubin,Unconjugated 0.5 mg/dL (0.0-1.1); Blood Urea Nitrogen 15 mg/dl (7-17); Calcium 9.2 mg/dl (8.4-10.2); Carbon Dioxide 31 mmol/L (22.0-30.0); Chloride 97 mmol/L (98-107); Chol/HDL Ratio 3.1 (1-3.5); Cholesterol 218 mg/dl (140-200); Estimated Glomerular Filt Rate 161 ml/min (>60); GFR (African American) 195 ML/MIN (>60); Glucose 79 mg/dl (74-100); HDL Cholesterol 71 mg/dl (40-60); Magnesium 1.4 mg/dl (1.6-2.3); Sodium 140 mmol/L (136-145); Total Protein,Serum 7.1 g/dl (6.3-8.2); Triglycerides 330 mg/dl (30-150); VLDL Cholesterol 66 mg/dL (0-40)
[2022-03-11 10:39] LABS: Direct LDL Cholesterol 93.31 mg/dL (100-129)
[2022-03-11 10:45] LABS: Free T4 (Free Thyroxine) 0.65 ng/dl (0.78-2.19)
[2022-03-11 10:59] LABS: Thyroid Stimulating Hormone 0.66 uIU/mL (0.465-4.68)
== END ==
PROVIDERS: PCP Emergency Medicine; Visit Provider Nurse Practitioner
DX: E78.5 Hyperlipidemia, unspecified (principal); J44.9 Chronic obstructive pulmonary disease, unspecified; R06.09 Other forms of dyspnea; I11.9 Hypertensive heart disease without heart failure; I63.9 Cerebral infarction, unspecified; E11.9 Type 2 diabetes mellitus without complications
CPT/HCPCS: 36415; 80048; 80061; 80076; 83735; 84439; 84443; 85025

== ENCOUNTER → 2022-03-17 14:50 | Outpatient (CLI) | payer MEDICARE, MEDICAID, SELFPAY ==
--- NOTE | 2022-03-17 | CA_ITS ---
APPROVED REPORT EXAM: Comprehensive 2D, Doppler, and color-flow Echocardiogram Miller Apprentice: STELLA Caceres, RVS Ht: 5 ft 1 in Wt: 120lbs BSA: 1.52 BP: 116/88 mmHg Indications: COPD, SOA, PT. SEATED UPRIGHT DURING EXAM SUPINE, HX-PERICARDAL EFFUSION, DYSPNEA, DIASTOLIC DYSFUNCTION, HTN, HLD Echo Enhancing Agent Comments: POOR ACOUSTICS DUE TO PATIENT FACTORS 2D Dimensions Left Atrium 2.89 cm LA Volume 50.50 mL LVOT 2.04 cm (M/F) 1.5-2.5 LA Volume Index 33.20 mL/m2 (M/F) 16-34 M-Mode Dimensions RVDd 2.05 cm (0.9-2.6) LA Diam 3.91 cm (1.9-4.0) LVDd 5.14 cm (3.5-5.7) Ao Diam 3.11 cm (2.0-3.7) LVDs 3.21 cm (3.5-5.7) IVSd 1.12 cm (0.6-1.1) PWd 0.96 cm (0.6-1.1) EF (Teich) 67.20% EPSs 0.12 cm FS 37.50% EDV (Teich) 126.10 mL TAPSE 2.58 (<1.7) ESV (Teich) 41.30 mL LV Diastology E Decel Time 143.00 (160-240 msec) E/A Ratio 1.13 MED E' 8.00 (< 7 cm/sec) MED A' 12.10 cm/s E'/MED E' Ratio 10.53 (>14) LAT E' 9.70 (<10 cm/sec) LAT A' 12.40 cm/s E/LAT E' Ratio 8.68 (>14) Aortic Valve LVOT Max 82.00 (70-110 cm/s) LVOT VTI 17.72 cm AoV Peak Chano. 129.00 (50-130 cm/s) AO Peak GR. 6.70 mmHg AO Mean GR. 3.50 (<5 mmHg) AO VTI 23.98 (18-25 cm) TREY (VTI) 2.42 (2.5-4.5 cm2) Mitral Valve MV A Velocity 75.00 (40-130 cm/s) E/A Ratio 1.13 MV Decel. Time 143.00 (160-240 ms) MV PHT 57.00 ms Pulmonary Valve PV Peak Velocity 88.00 (50-150 cm/s) Tricuspid Valve TR P. Velocity 146.00 cm/s Left Ventricle Technically difficult study because of the patient factors and poor acoustic windows. Left atrium is mildly enlarged, left ventricle is normal size mild concentric left ventricular hypertrophy, estimated ejection fraction 55% with no regional wall motion abnormality, grade 1 diastolic dysfunction seen without tissue Doppler evidence of raise left atrial pressure. Right Ventricle Right atrium and right ventricle are mildly enlarged with normal contractility. Aortic Valve Aortic valve is minimally thickened and fibrosed there is no aortic stenosis or aortic insufficiency. Mitral Valve Mitral valve is grossly normal, there is trace mitral regurgitation. Tricuspid Valve Tricuspid grossly normal, there is trace tricuspid regurgitation, tricuspid regurgitation jet velocity is inadequate for calculation of the right ventricular systolic pressure. Pulmonic Valve Pulmonic valve is poorly visualized. Great Vessels Aortic root is normal size. Inferior vena cava is normal size with normal inspiratory collapse. Pericardium Trivial pericardial effusion and anterior echo-free space seen. Conclusion 1. Mild biatrial enlargement, normal left ventricular size, mild concentric left ventricular hypertrophy, estimated ejection fraction 55% with no regional wall motion abnormality, grade 1 diastolic dysfunction seen without tissue Doppler evidence of raise left atrial pressure. 2. Mildly enlarged right ventricle with normal contractility. 3. Trace mitral and tricuspid regurgitation. 4. Trivial pericardial effusion and anterior echo-free space seen. 5. Inferior vena cava is normal size with normal inspiratory collapse. Electronically signed by : Rohith Armijo MD 03/18/2022 05:35:47
== END ==
PROVIDERS: PCP Emergency Medicine; Visit Provider Nurse Practitioner
DX: R06.09 Other forms of dyspnea (principal)
CPT/HCPCS: 93306

== ENCOUNTER 2022-03-22 13:34 | Observation (INO) | payer MEDICARE, MEDICAID, SELFPAY ==
[2022-03-22] VITALS (12 sets, daily range): BP systolic 92–114; BP diastolic 61–79; PULSE 83–109; RESP 17–23; TEMP 36.4–37.5; O2SAT 93–98; BMI 21.9; BMI 22.6
--- NOTE | 2022-03-22 13:41 | ECG_ITS ---
APPROVED REPORT Exam: Resting ECG HR:107 bpm ECG Measurements Heart Rate 107 AXES WI 146 P 57 QRSd 86 QRS 67 QT 321 T 55 QTc 384 Conclusion SINUS TACHYCARDIA ABNORMAL RHYTHM ECG UNCONFIRMED REPORT Electronically signed by : Alexey Pedraza MD 03/23/2022 19:55:47
--- NOTE | 2022-03-22 13:48 | XR_ITS ---
FINAL REPORT CLINICAL HISTORY: Dyspnea COMPARISON: March 01, 2022 FINDINGS: The heart size is normal. The mediastinum is within normal limits. There is worsening bibasilar opacity. There is no pleural effusion. There is no pneumothorax. There is a chronic fracture of the proximal right humerus. IMPRESSION: Worsening bi basilar opacity worrisome for bilateral pneumonia. Reviewed, Interpreted and Dictated by Bennie Mann III, MD Transcribed by David Wren Authenticated and [facility]
--- NOTE | 2022-03-22 13:54 | HMH.EDSOB ---
Discharge Plan Disposition Patient Disposition: Admitted as Observation Prescriptions Prescriptions: No Action bisoprolol-hydrochlorothiazide 5-6.25 mg tablet 1 tab PO DAILY aspirin 81 mg tablet 81 mg PO DAILY albuterol sulfate 90 mcg/actuation HFA aerosol inhaler 2 inh IH Q6H PRN (Reason: shortness of breath or wheezing) 90 Days Qty: 8.5 3RF ipratropium-albuterol 0.5 mg-3 mg(2.5 mg base)/3 mL solution for nebulization 3 ml IH QID PRN (Reason: shortness of breath or wheezing) 90 Days Qty: 360 3RF clonazepam 0.5 mg tablet 0.5 mg PO BID Qty: 60 1RF hydrocodone-acetaminophen 10-325 mg tablet 1 tab PO QID Qty: 120 0RF pantoprazole 40 mg tablet,delayed release (DR/EC) 40 mg PO DAILY Qty: 90 3RF quetiapine 200 mg tablet See Rx Instructions .ROUTE .COMPLEX Rx Instructions: TAKE ONE TABLET BY MOUTH AT BEDTIME FOR SCHIZOPHRENIA cholecalciferol (vitamin D3) 25 mcg (1,000 unit) tablet See Rx Instructions .ROUTE .COMPLEX Rx Instructions: TAKE ONE TABLET BY MOUTH ONCE A DAY FOR SUPPLEMENT trazodone 150 mg tablet See Rx Instructions .ROUTE .COMPLEX Rx Instructions: TAKE ONE TABLET BY MOUTH AT BEDTIME FOR SLEEP atorvastatin 20 mg tablet 20 mg PO HS Trelegy Ellipta 100-62.5-25 mcg blister with device 1 inh inhalation DAILY Referrals Follow up/Referrals: Dagoberto Low MD [Primary Care Provider] - See instructions Clinical Impressions Clinical Impression: Pneumonia, Acute exacerbation of chronic obstructive pulmonary disease, Severe sepsis Discharge ED Provider: Irwin Briceño Resp/SOB HPI General Chief Complaint: Shortness of Breath/Dyspnea Stated Complaint: SOA Time Seen by Provider: 03/22/22 13:49 Mode of Arrival: Wheelchair Source of Information: Patient Limitations: No Limitations Description of Symptoms (Recalled from ER Triage Doc. by RN): 62 F presents with 1 week of increased SOA with low grade fevers at home, with highest 100.6. Patient wears 3L via NC PRN at home, but is requiring it for longer periods of time. Patient believes she may have pneumonia again. History of Present Illness The patient presents to the emergency department complaining of at least 1 week of shortness of breath. She has home oxygen for COPD. Since June she has been using 2.5 L/min. She also complains of some low-grade fevers of 100.6 at home. She denies any other symptoms. She does cough however. She frequently has a diagnosis of pneumonia and fears that she may have the same today. MD Complaint: shortness of breath and cough Related Data Home Medications Medication Instructions Recorded Confirmed atorvastatin 20 mg tablet 20 mg PO HS Cholesterol 02/26/22 03/22/22 fluticasone fur. 100 mcg-umeclid 1 inh inhalation DAILY COPD 02/26/22 03/22/22 62.5 mcg-vilant 25 mcg inhalat.powder (Trelegy Ellipta) trazodone 150 mg tablet See Rx Instructions .Route 02/26/22 03/22/22 .COMPLEX SLEEP aspirin 81 mg tablet 81 mg PO DAILY CAD 03/11/22 03/22/22 bisoprolol 5 1 tab PO DAILY HTN 03/11/22 03/22/22 mg-hydrochlorothiazide 6.25 mg tablet cholecalciferol (vitamin D3) 25 See Rx Instructions .Route 03/22/22 03/22/22 mcg (1,000 unit) tablet .COMPLEX Supplement quetiapine 200 mg tablet See Rx Instructions .Route 03/22/22 03/22/22 .COMPLEX Mood Previous Rx's Medication Instructions Recorded pantoprazole 40 mg tablet,delayed 40 mg PO DAILY GERD #90 tabs 10/27/21 release albuterol sulfate 90 mcg/actuation 2 inh inhalation Q6H PRN shortness 10/30/21 aerosol inhaler of breath or wheezing 90 days #8.5 grams ipratropium 0.5 mg-albuterol 3 mg 3 ml inhalation QID PRN shortness 10/30/21 (2.5 mg base)/3 mL nebulization of breath or wheezing 90 days #360 soln mL clonazepam 0.5 mg tablet 0.5 mg PO BID Anxiety #60 tabs 02/26/22 hydrocodone 10 mg-acetaminophen 1 tab PO QID Pain #120 tabs 02/26/22 325 mg tablet Allergies Allergy/AdvReac
[2022-03-22 14:13] LABS: Coronavirus 19, PCR Not Detected (NotDetected); Influenza A, PCR Not Detected (NotDetected); Influenza B, PCR Not Detected (NotDetected)
--- NOTE | 2022-03-22 14:17 | PC.NURSE ---
Patient shows much improved since treatments per APR. VSS. NAD
[2022-03-22 14:19] LABS: Basophils # 0.1 K/mm3 (0-0.2); Basophils % 0.6 % (0.1-2.0); Eosinophils # 0.1 K/mm3 (0.0-0.4); Eosinophils % 0.7 % (0.1-12.0); Hematocrit 33.7 % (37.0-47.0); Hemoglobin 10.9 g/dL (12.2-16.2); Lymphocytes # 1.6 K/mm3 (0.7-4.5); Lymphocytes % 7.6 % (10-50); Mean Corpuscular HGB Conc 32.4 g/dL (31.8-35.4); Mean Corpuscular Hemoglobin 32.4 pg (27.0-31.2); Mean Corpuscular Volume 100.1 fl (81-99); Mean Platelet Volume 7.7 fl (7.4-10.4); Monocytes % 4.6 % (1.7-9.3); Neutrophils # 18.4 K/mm3 (1.8-7.8); Neutrophils % 86.6 % (37.0-80.0); Platelet Count 545 K/mm3 (142-424); Red Blood Count 3.37 M/mm3 (4.20-5.40); Red Cell Distribution Width 13.3 % (11.5-17.5); White Blood Count 21.3 K/mm3 (4.8-10.8)
[2022-03-22 14:23] LABS: Alanine Aminotransferase 30 U/L (12-78); Albumin Level 3.9 g/dl (3.5-5.0); Alkaline Phosphatase 87 U/L (38-126); Aspartate Amino Transferase 49 U/L (14-36); Bilirubin,Direct 0.2 mg/dl (0.0-0.4); Bilirubin,Indirect 0.3 mg/dL (0.0-0.9); Bilirubin,Total 0.5 mg/dl (0.2-1.3); Bilirubin,Unconjugated 0.3 mg/dL (0.0-1.1); Total Protein,Serum 6.7 g/dl (6.3-8.2)
[2022-03-22 14:24] LABS: Anion Gap 9.9 mEq/L (5-15); Bilirubin,Total 0.5 mg/dl (0.2-1.3); Blood Urea Nitrogen 12 mg/dl (7-17); Calcium 8.6 mg/dl (8.4-10.2); Carbon Dioxide 38 mmol/L (22.0-30.0); Chloride 88 mmol/L (98-107); Creatinine Clearance Estimated 49 mL/min (50-200); Estimated Glomerular Filt Rate 225 ml/min (>60); GFR (African American) 272 ML/MIN (>60); Glucose 169 mg/dl (74-100); Sodium 133 mmol/L (136-145)
[2022-03-22 14:25] LABS: Activated Partial Thrombo Time 31.9 seconds (22.8-30.6); INR 1.16 (0.9-1.1); Prothrombin Time 12.4 seconds (10.1-12.5)
[2022-03-22 14:28] LABS: MANUAL DIFFERENTIAL MANUAL DIFFERENTIAL (MANUAL DIFF)
[2022-03-22 14:39] LABS: Procalcitonin 23.6 ng/mL (0.0-2.0)
[2022-03-22 14:43] LABS: Lactic Acid 3.1 mmol/L (0.7-2.1); Potassium 2.9 mmoL/L (3.5-5.1)
--- NOTE | 2022-03-22 15:02 | PC.NURSE ---
DR STAHL HAS AGREED TO ADMIT PT
--- NOTE | 2022-03-22 15:03 | PC.NURSE ---
CARE MANAGEMENT NOTIFIED OF ADMISSION
[2022-03-22 15:28] LABS: Eosinophils % 1 % (0-3); Lymphocytes % 14 % (10-50); Macrocytosis 1+; Monocytes % 4 % (2-9); Neutrophils % 81 % (42-76); Platelet Estimate Slight Increase; Total Cells Counted 100
[2022-03-22 15:42] LABS: Microscopic, Urine URINE MICROSCOPIC (MICROSCOPIC)
[2022-03-22 16:19] LABS: Appearance,Urine CLEAR (Clear); Bilirubin,Urine Negative (Negative); Blood, Urine Negative (Negative); Color,Urine YELLOW (Yellow); Glucose,Urine (UA) Negative (Negative); Ketones,Urine Negative (Negative); Leukocyte Esterase,Urine Negative (Negative); Nitrate,Urine Negative (Negative); PH,Urine 6.5 (5.0-8.5); Protein,Urine Negative (Negative); Specific Gravity, Urine <= 1.005 (1.005-1.030); Urobilinogen,Urine 0.2 EU/dl (0.2)
[2022-03-22 16:24] LABS: Squamous Epithelial Cell,Urine Occasional #/hpf (0-5); WBC,Urine Occasional #/hpf (0-3)
--- NOTE | 2022-03-22 16:27 | PC.NURSE ---
patient arrived by wheelchair at 16:20
--- NOTE | 2022-03-22 17:13 | PC.NURSE ---
PT ALERT X 4, UP HARDIK, O2 ON 3L NC, PT WEARS 2L AT HOME. KELSEY WHEEZES AND RHONCHI HEARD T/O LUNG SIDDIQUI. NO EDEMA OR SKIN ISSUES NOTED. PT REQUESTED PAIN MEDS SHE HAS CHRONIC BACK PAIN. DOC NOTIFIED. CB AND PERSONAL ITEMS WITHIN REACH, NO CONCERNS AT THIS TIME.
[2022-03-22 18:08] LABS: Reflex Lactic Add Lactic Reflex
--- NOTE | 2022-03-22 18:21 | EXP.HP ---
History of Present Illness *Admission Date: 03/22/22 *Reason for visit:: Worsening shortness of breath, fevers *History of present illness: Ms. Navarro is a 62-year-old female who has not felt well for many months per her report. She initially presented to the ER because of worsening shortness of breath over the past week. She is on home oxygen for COPD, normally on 2 L. Has had increased to 2-1/2 to 3 L over the past several days. Having fevers at home up to 100.6. Reports chills and weakness. Reports a cough but it is not symptomatic. No chest pain or confusion. Was diagnosed with pneumonia several months ago and has not felt well since that episode. Has been using her inhaler/nebulizer more frequently at home with no benefit to her shortness of breath. On presentation to the ER, found to have significant elevation of her white cell count to 21K, elevated procalcitonin, chest imaging concerning for bilateral pneumonia, and tachycardia. Medicine consulted for admission for sepsis secondary to pneumonia. After arriving to the floor, patient reevaluated. Still feels quite weak. Currently on 3 L nasal cannula oxygen with appropriate saturations. Initiated on azithromycin, cefepime, methylprednisolone in the ER. Normal kidney function. Does have an electrolyte disturbance with hypokalemia, replaced in ER. [facility] Disclaimer: The information contained in this section may have been updated after the patient was seen, as this information can be updated by other users. Medical History COPD (chronic obstructive pulmonary disease) Dyspnea on exertion Nocturnal hypoxemia Scoliosis Screening for lung cancer Stopped smoking with greater than 30 pack year history Surgical History History of tonsillectomy Family History No significant family history Social History Smoking Status: Former smoker pack-years: 40 second hand exposure: Yes alcohol intake: never substance use type: denies use current occupational status: unemployed and disabled Travel in the last 8 weeks: None household members: none housing: house current occupational exposures/hazards: No caffeine: Yes Review of Systems Review of Systems Review of systems (narrative): 14 point review of systems performed, pertinent positives and negatives as per HPI Meds Home Medications and Allergies Home Medications Medication Instructions Recorded Confirmed Type pantoprazole 40 mg tablet,delayed 40 mg PO DAILY GERD #90 tabs 10/27/21 03/22/22 Rx release albuterol sulfate 90 mcg/actuation 2 inh inhalation Q6H PRN shortness 10/30/21 03/22/22 Rx aerosol inhaler of breath or wheezing 90 days #8.5 grams ipratropium 0.5 mg-albuterol 3 mg 3 ml inhalation QID PRN shortness 10/30/21 03/22/22 Rx (2.5 mg base)/3 mL nebulization of breath or wheezing 90 days #360 soln mL atorvastatin 20 mg tablet 20 mg PO HS Cholesterol 02/26/22 03/22/22 History clonazepam 0.5 mg tablet 0.5 mg PO BID Anxiety #60 tabs 02/26/22 03/22/22 Rx fluticasone fur. 100 mcg-umeclid 1 inh inhalation DAILY COPD 02/26/22 03/22/22 History 62.5 mcg-vilant 25 mcg inhalat.powder (Trelegy Ellipta) hydrocodone 10 mg-acetaminophen 1 tab PO QID Pain #120 tabs 02/26/22 03/22/22 Rx 325 mg tablet trazodone 150 mg tablet 150 mg PO HS SLEEP 02/26/22 03/22/22 History aspirin 81 mg tablet 81 mg PO DAILY CAD 03/11/22 03/22/22 History bisoprolol 5 1 tab PO DAILY High blood pressure 03/11/22 03/22/22 History mg-hydrochlorothiazide 6.25 mg tablet cholecalciferol (vitamin D3) 25 1,000 unit PO DAILY Supplement 03/22/22 03/22/22 History mcg (1,000 unit) tablet quetiapine 200 mg tablet 200 mg PO HS Insomnia 03/22/22 03/22/22 History New Prescriptions to Start Prescriptions: Allergies Allergy/AdvReac Type Severity
[2022-03-22 18:50] LABS: Lactic Acid Follow Up (RFLX 1) 1.3 mmol/L (0.7-2.1)
[2022-03-23 04:00] VITALS: BP 114/73; PULSE 84; RESP 18; TEMP 36.6; O2SAT 93; BMI 22.1
--- NOTE | 2022-03-23 05:20 | PC.NURSE ---
Pt remians on 3L NC tolerating well. No changes since previous assessment.
[2022-03-23 05:56] VITALS: PULSE 83; PULSE 84; RESP 18; O2SAT 94
[2022-03-23 06:20] LABS: Hematocrit 33.2 % (37.0-47.0); Hemoglobin 10.6 g/dL (12.2-16.2); Lymphocytes # 0.7 K/mm3 (0.7-4.5); Lymphocytes % 5.1 % (10-50); Mean Corpuscular HGB Conc 31.8 g/dL (31.8-35.4); Mean Corpuscular Hemoglobin 32.5 pg (27.0-31.2); Mean Corpuscular Volume 102.4 fl (81-99); Mean Platelet Volume 7.8 fl (7.4-10.4); Monocytes # 0.5 K/mm3 (0.1-1.0); Monocytes % 3.6 % (1.7-9.3); Neutrophils % 91.2 % (37.0-80.0); Platelet Count 546 K/mm3 (142-424); Red Blood Count 3.25 M/mm3 (4.20-5.40); Red Cell Distribution Width 13.2 % (11.5-17.5); White Blood Count 13.1 K/mm3 (4.8-10.8)
[2022-03-23 06:23] LABS: MANUAL DIFFERENTIAL MANUAL DIFFERENTIAL (MANUAL DIFF)
[2022-03-23 06:30] LABS: Alanine Aminotransferase 18 U/L (12-78); Albumin Level 3.5 g/dl (3.5-5.0); Albumin/Globulin Ratio 1.2 (1.1-1.8); Alkaline Phosphatase 79 U/L (38-126); Anion Gap 7.9 mEq/L (5-15); Aspartate Amino Transferase 24 U/L (14-36); Bilirubin,Total 0.4 mg/dl (0.2-1.3); Blood Urea Nitrogen 10 mg/dl (7-17); Calcium 8.6 mg/dl (8.4-10.2); Carbon Dioxide 34 mmol/L (22.0-30.0); Chloride 100 mmol/L (98-107); Creatinine Clearance Estimated 48 mL/min (50-200); Estimated Glomerular Filt Rate 359 ml/min (>60); GFR (African American) 434 ML/MIN (>60); Globulin 2.9 g/dL (1.3-3.2); Glucose 186 mg/dl (74-100); Magnesium 1.6 mg/dl (1.6-2.3); Potassium 3.9 mmoL/L (3.5-5.1); Sodium 138 mmol/L (136-145); Total Protein,Serum 6.4 g/dl (6.3-8.2)
[2022-03-23 06:50] LABS: Lymphocytes % 8 % (10-50); Monocytes % 3 % (2-9); Neutrophils % 89 % (42-76); Platelet Estimate Slight Increase; RBC Morphology Normal; Total Cells Counted 100
[2022-03-23 07:47] VITALS: BP 115/74; PULSE 104; RESP 20; TEMP 36.6; O2SAT 93
--- NOTE | 2022-03-23 07:57 | P.CONPHA_ITS ---
Pharmacy Intervention Comments: home medication list verified using list from [facility]
--- NOTE | 2022-03-23 07:57 | HMH.PHAINT1 ---
Pharmacy Intervention Comments: home medication list verified using list from [facility]
--- NOTE | 2022-03-23 09:44 | EXP.DC.SUM ---
General Admission date:: 03/22/22 Discharge date: 03/23/22 HPI HPI HPI: Ms. Navarro is a 62-year-old female who has not felt well for many months per her report. She initially presented to the ER because of worsening shortness of breath over the past week. She is on home oxygen for COPD, normally on 2 L. Has had increased to 2-1/2 to 3 L over the past several days. Having fevers at home up to 100.6. Reports chills and weakness. Reports a cough but it is not symptomatic. No chest pain or confusion. Was diagnosed with pneumonia several months ago and has not felt well since that episode. Has been using her inhaler/nebulizer more frequently at home with no benefit to her shortness of breath. On presentation to the ER, found to have significant elevation of her white cell count to 21K, elevated procalcitonin, chest imaging concerning for bilateral pneumonia, and tachycardia. Medicine consulted for admission for sepsis secondary to pneumonia. After arriving to the floor, patient reevaluated. Still feels quite weak. Currently on 3 L nasal cannula oxygen with appropriate saturations. Initiated on azithromycin, cefepime, methylprednisolone in the ER. Normal kidney function. Does have an electrolyte disturbance with hypokalemia, replaced in ER. Hospital Course Hospital Course Hospital Course: 62-year-old female with chronic respiratory failure on oxygen who presents with worsening shortness of breath, chills.? Found to have bilateral pneumonia, elevated white cell count, tachycardia.? Meeting criteria for sepsis.? Admitted to medicine for further management.? Problems addressed as follows: Sepsis Bilateral pneumonia Chronic hypoxemic respiratory failure Emphysema/COPD -Presents with chest imaging findings with bilateral/bibasilar airspace disease. Given clinical findings of tachycardic greater than 90 and leukocytosis, with presence of pneumonia, patient meets criteria for sepsis. Started on azithromycin and cefepime for community-acquired pneumonia. Continued 3 L nasal cannula (her baseline is 2 L). Maintain goal saturations greater 90%. Treated with duo nebs every 6 hours and initiated on steroids. Feeling better by the next day and stable on baseline oxygen. Transition to oral antibiotics to complete 7-day course of antibiotics for pneumonia. Resume home inhaler regimen. Continue 4 more days of steroids for 5 days total of steroids Heart failure with preserved ejection fraction Hypertension Hyperlipidemia -Echocardiogram obtained last week, EF greater than 55%.? Grade 1 diastolic dysfunction. Continue home medications.? Patient appears euvolemic. Continued home statin. Hypokalemia: Potassium 2.8 on admission.? Received oral repletion in the ER.? Repeat labs in the morning normalized Chronic pain: Resume home pain medication regimen Sleep disorder: Continue home regimen for sleep Anxiety: Continue home Klonopin Tolerating oral meds. On baseline oxygen. Stable for discharge home. Patient excited to get home to her cat Socks who has been by himself since she left. Exam Data for Last 24 hours Vital signs and Labs for Last 24 Hours: Temp Pulse Resp BP Pulse Ox 97.8 F 104 H 20 115/74 93 L 03/23/22 07:47 03/23/22 07:47 03/23/22 07:47 03/23/22 07:47 03/23/22 07:47 Laboratory Results - last 24 hr 03/22/22 13:45: WBC 21.3 H*, RBC 3.37 L, Hgb 10.9 L, Hct 33.7 L, MCV 100.1 H, MCH 32.4 H, MCHC 32.4, RDW 13.3, Plt Count 545 H, MPV 7.7, Neut % (Auto) 86.6 H, Lymph % (Auto) 7.6 L, [place] % (Auto) 4.6, Eos % (Auto) 0.7, Baso % (Auto) 0.6, Neut # (Auto) 18.4 H, Lymph # (Auto) 1.6, [place] # (Auto) 1.0, Eos # (Auto) 0.1, Baso # (Auto) 0.1, Total Counted 100, Neutrophils % (Manual) 81 H, Lymphocytes % (Manual) 14, Monocytes % (Manual) 4, Eosinophils % (Manual) 1, Platelet Estimate Slight increase, RBC Morphology Not Reportable, Macrocytosis 1+ 03/22/22 13:45: PT 12.4, INR 1.16 H, APTT 31.9 H 03/22/22 13:45: Sodium 133 L, Pot
[2022-03-23 11:27] VITALS: PULSE 87; PULSE 88; O2SAT 94
[2022-03-23 12:00] VITALS: BP 133/82; PULSE 60; RESP 20; TEMP 36.8; O2SAT 95
--- NOTE | 2022-03-25 14:39 | CARE MANAGER ---
Spoke with patient for post-discharge phone interview, no issues noted.
== END 2022-03-23 13:53 | disposition home or self-care (01) ==
LOC: ER 15:15 → 2ND 15:34
PROVIDERS: Admitting Provider Internal Medicine Adolescent Medicine; Emergency Provider Emergency Medicine; PCP Emergency Medicine; Visit Provider Internal Medicine Adolescent Medicine
DX: J18.9 Pneumonia, unspecified organism (principal); E87.6 Hypokalemia; J43.1 Panlobular emphysema; Z99.81 Dependence on supplemental oxygen; I10 Essential (primary) hypertension; F39 Unspecified mood [affective] disorder; M54.6 Pain in thoracic spine; Z79.899 Other long term (current) drug therapy; Z87.891 Personal history of nicotine dependence; Z20.822 Contact with and (suspected) exposure to COVID-19; J96.11 Chronic respiratory failure with hypoxia
CPT/HCPCS: G0378; 36415; 71045; 80048; 80053; 80076; 81001; 82247; 83605; 83735; 84145; 85007; 85025; 85610; 85730; 87040; 87070; 87205; 93005; 94640; 94760; 94761; 99285; C9803; J0456; J0692; U0003; U0005

== ENCOUNTER → 2022-04-08 12:48 | Outpatient (CLI) | payer MEDICARE, MEDICAID, SELFPAY ==
--- NOTE | 2022-04-08 12:54 | CT_ITS ---
FINAL REPORT CLINICAL HISTORY: former smoker, quit 3 yrs ago, smoked 3 pks per day x 50 yrs, copd COMPARISON: 05/22/2020 FINDINGS: Low-Dose Chest CT Axial images were obtained from the lung apex to the mid abdomen by computed tomography. Low-dose protocol was utilized. CTDI vol (mGy): 2.90 DLP (mGy-cm): 100.03 There is no axillary lymphadenopathy. There is an AP window lymph node which has increased in size measuring 14 mm and was 9 mm. There is no hilar lymphadenopathy. The heart is proper size. There is no pericardial or pleural effusion. Lung window images demonstrate multiple new irregular left upper lobe pulmonary nodules. A nodule in the left upper lobe on image 17 measures 20 mm. In the anterior left upper lobe, there is a 13 mm nodule on image 25. There are also multiple left lower lobe pulmonary nodules. A spiculated nodule measures 14 mm on image 46. In the right middle lobe, there is a mass like opacity anterior to the major fissure which measures 28 mm. There is underlying emphysema and evidence of granulomatous disease. Limited images of the upper abdomen demonstrates a questionable mass in the right liver lobe. There may be a partially exophytic left renal lesion. IMPRESSION: Lung RADS category 4B, S. Recommend PET-CT for further evaluation. Modifier S: Possible liver lesion. Recommend CT abdomen and pelvis with oral and IV contrast. Reviewed, Interpreted and Dictated by Ruth Urban MD Transcribed by Neena Lynch Authenticated and [facility]
== END ==
PROVIDERS: PCP Emergency Medicine; Visit Provider Internal Medicine Pulmonary Disease
DX: Z87.891 Personal history of nicotine dependence; Z12.2 Encounter for screening for malignant neoplasm of respiratory organs
CPT/HCPCS: 71271

== ENCOUNTER → 2022-04-09 11:18 | Outpatient (CLI) | payer MEDICARE, MEDICAID, SELFPAY ==
--- NOTE | 2022-04-09 11:18 | CT_ITS ---
FINAL REPORT TECHNIQUE: Pre-and postcontrast axial imaging of the abdomen and pelvis was obtained after the administration of IV and oral contrast. This study was performed with techniques to keep radiation doses as low as reasonably achievable, (ALARA). Individualized dose reduction technique using automated exposure control or adjustment of mA and/or kV according to the patient's size were employed. CLINICAL HISTORY: Liver lesion, concerned maignancy. Oral and IV con COMPARISON: 04/06/[address] low-dose screener 04/08/2022 FINDINGS: There are bilateral lower lobe pulmonary nodules which are new compared to the 2021 study. The largest is a right middle lobe nodule measuring 3.3 cm in the medial left lower lobe nodule measuring 12 mm. There is diffuse fatty infiltration of the liver. No liver lesions identified on this exam. The gallbladder is present. The spleen is unremarkable. There are bilateral adrenal nodules which are unchanged from 2021. On the noncontrast images these all measure less than 10 Hounsfield units and are consistent with adenomas. There is no pancreatic mass seen. No renal stones or mass identified. Abdominal GI tract is unremarkable. No small bowel obstruction. There is no lymphadenopathy or ascites. The uterus is present. The appendix is normal. There is a large amount of retained stool consistent with constipation. There is no acute colonic abnormality. There is no lymphadenopathy or ascites. There is scoliosis without acute osseous abnormality identified. IMPRESSION: No renal or liver lesion. Fatty infiltration of the liver. Constipation. Bilateral stable adrenal nodules, adenomas. Bilateral lower lobe nodules. Malignancy a concern. Reviewed, Interpreted and Dictated by Ruth Urban MD Transcribed by Janae Linares Authenticated and [facility]
== END ==
PROVIDERS: PCP Emergency Medicine; Visit Provider Internal Medicine Pulmonary Disease
DX: K76.89 Other specified diseases of liver (principal)
CPT/HCPCS: 74178; Q9967

== ENCOUNTER → 2022-04-13 11:43 | Outpatient (CLI) | payer MEDICARE, MEDICAID, SELFPAY | PROVIDERS: PCP Emergency Medicine; Visit Provider Internal Medicine Pulmonary Disease | DX: R91.8 Other nonspecific abnormal finding of lung field (principal) | CPT/HCPCS: 87040 ==

== ENCOUNTER → 2022-04-16 15:36 | Outpatient (CLI) | payer MEDICARE, MEDICAID, SELFPAY ==
[2022-04-16 17:39] LABS: Amphetamine/Metha Screen,Urine Negative ng/ml (<1000)
[2022-04-16 17:40] LABS: Barbiturates Screen,Urine Negative ng/ml (<200); Benzodiazepines Screen,Urine Negative ng/ml (<200)
[2022-04-16 17:41] LABS: Cannabinoid Screen,Urine Negative ng/ml (<50)
[2022-04-16 17:42] LABS: Cocaine Screen,Urine Negative ng/ml (<300); Methadone Screen,Urine Negative ng/ml (<300)
[2022-04-16 17:43] LABS: Opiate Screen,Urine Positive ng/ml (<300)
[2022-04-16 17:46] LABS: Phencyclidine Screen,Urine Negative ng/ml (<25)
== END ==
PROVIDERS: PCP Emergency Medicine; Visit Provider Emergency Medicine
DX: Z79.899 Other long term (current) drug therapy (principal)
CPT/HCPCS: 80305

== ENCOUNTER 2022-04-22 11:04 | Inpatient (IN) | payer MEDICARE, MEDICAID, SELFPAY ==
[2022-04-22] VITALS (11 sets, daily range): BP systolic 102–114; BP diastolic 64–83; PULSE 87–100; RESP 16–24; TEMP 36.5–37.1; O2SAT 93–94; BMI 21.9; BMI 22.1
--- NOTE | 2022-04-22 11:09 | CT_ITS ---
FINAL REPORT TECHNIQUE: Axial imaging of the chest is obtained after the administration of contrast. 3-D MIP reformatted images were also obtained and reviewed per PE protocol. CLINICAL HISTORY: short of breath, high pretest COMPARISON: 04/08/2022 FINDINGS: The pulmonary arteries are well filled. There is no evidence of pulmonary embolus. There is no aortic dissection or intimal flap. There is no axillary lymphadenopathy. There are multiple small mediastinal lymph nodes which are new. There is AP window lymphadenopathy. There is a 2.1 cm lymph node which is increased in size from the prior. There is left hilar lymphadenopathy. There has been interval increase in size of a small left pleural effusion. There is no right pleural effusion. There is no pericardial effusion. Since the screening CT, there has been interval development of multiple rounded mass like opacities in the left lung. Opacity in the left upper lobe measures 5.5 cm. Some of the previously seen nodules have coalesced. A nodule in the left lower lobe on image 65 measures 2.4 cm and was 1.4 cm. A more medial left lower lobe nodule is also increased in size. A subpleural irregular opacity in the right middle lobe is unchanged. There is underlying emphysema. There is diffuse fatty infiltration of the liver. There are bilateral adrenal nodules which are nonspecific. Remainder of the upper abdomen is without acute abnormality. There is no acute osseous abnormality. IMPRESSION: 1. No evidence of pulmonary embolism or dissection. 2. Interval worsening of pulmonary nodular and mass like opacities in the left lung since screening exam 2 weeks prior. Rapid development suggests and infectious or inflammatory process but neoplasm is not excluded. 3. Lymphadenopathy, may be reactive. 4. Recommend follow-up. Reviewed, Interpreted and Dictated by Ruth Urban MD Transcribed by Neena Lynch Authenticated and [facility]
--- NOTE | 2022-04-22 11:09 | ECG_ITS ---
APPROVED REPORT Exam: Resting ECG HR:90 bpm ECG Measurements Heart Rate 90 AXES WI 155 P 67 QRSd 79 QRS 78 QT 291 T 61 QTc 339 Conclusion SINUS RHYTHM POSSIBLE RIGHT VENTRICULAR CONDUCTION DELAY [RSR (QR) IN V1/V2] MODERATE T-WAVE ABNORMALITY, CONSIDER ANTEROLATERAL ISCHEMIA [-0.1+ mV T-WAVE IN V3-V6] ABNORMAL ECG UNCONFIRMED REPORT Electronically signed by : Alexey Pedraza MD 04/22/2022 17:05:29
--- NOTE | 2022-04-22 11:15 | HMH.EDGENADL ---
Discharge Plan Disposition Patient Disposition: Admitted As Inpatient Condition: Serious Chief Complaint: Shortness of Breath/Dyspnea Prescriptions Prescriptions: No Action bisoprolol-hydrochlorothiazide 5-6.25 mg tablet 1 tab PO DAILY aspirin 81 mg tablet 81 mg PO DAILY albuterol sulfate 90 mcg/actuation HFA aerosol inhaler 2 inh IH Q6H PRN (Reason: shortness of breath or wheezing) 90 Days Qty: 8.5 3RF ipratropium-albuterol 0.5 mg-3 mg(2.5 mg base)/3 mL solution for nebulization 3 ml IH QID PRN (Reason: shortness of breath or wheezing) 90 Days Qty: 360 3RF clonazepam 0.5 mg tablet 0.5 mg PO BID Qty: 60 1RF hydrocodone-acetaminophen 10-325 mg tablet 1 tab PO QID Qty: 120 0RF amoxicillin-pot clavulanate [Augmentin] 500-125 mg tablet 1 tab PO Q8H 5 Days Qty: 15 7RF pantoprazole 40 mg tablet,delayed release (DR/EC) 40 mg PO DAILY Qty: 90 3RF quetiapine 200 mg tablet 200 mg PO HS cholecalciferol (vitamin D3) 25 mcg (1,000 unit) tablet 1,000 unit PO DAILY Rx Instructions: TAKE ONE TABLET BY MOUTH ONCE A DAY FOR SUPPLEMENT trazodone 150 mg tablet 150 mg PO HS atorvastatin 20 mg tablet 20 mg PO HS Trelegy Ellipta 100-62.5-25 mcg blister with device 1 inh inhalation DAILY Referrals Follow up/Referrals: Dagoberto Low MD [Primary Care Provider] - See instructions Clinical Impressions Clinical Impression: Left lower lobe pneumonia, COPD (chronic obstructive pulmonary disease), Acute hypoxemic respiratory failure Discharge ED Provider: Mariza Venegas General Adult HPI General Chief complaint: Shortness of Breath/Dyspnea Stated complaint: SOA, no energy,dizziness Time Seen by Provider: 04/22/22 11:09 Mode of Arrival: Wheelchair Source of Information: Patient Limitations: No Limitations History of Present Illness HPI narrative: 62-year-old female presenting to the emergency department with cough, fever, shortness of breath. Symptoms of gotten worse over the last few days. She is diagnosed with COPD, previously was using oxygen only at home. Over the last few days she has required 2 L of oxygen all of the time. She still feels very fatigued, short of breath. She has had fevers up to 101 Fahrenheit. She has not been on any medications or steroids recently. She uses an inhaler and a nebulizer. Following with Dr. Jimenez, after pulmonary nodules found on chest CT. He saw her in clinic today and was very worried about her symptoms. She seemed very tired, short of breath, weak. She is initially hypoxic to 80% when she got to the office. Patient denies chest pain, abdominal pain, nausea, vomiting, diarrhea. Related Data Home Medications Medication Instructions Recorded Confirmed atorvastatin 20 mg tablet 20 mg PO HS Cholesterol 02/26/22 04/22/22 fluticasone fur. 100 mcg-umeclid 1 inh inhalation DAILY COPD 02/26/22 04/22/22 62.5 mcg-vilant 25 mcg inhalat.powder (Trelegy Ellipta) trazodone 150 mg tablet 150 mg PO HS Insomnia 02/26/22 04/22/22 aspirin 81 mg tablet 81 mg PO DAILY Heart disease 03/11/22 04/22/22 bisoprolol 5 1 tab PO DAILY High blood pressure 03/11/22 04/22/22 mg-hydrochlorothiazide 6.25 mg tablet cholecalciferol (vitamin D3) 25 1,000 unit PO DAILY Supplement 03/22/22 04/22/22 mcg (1,000 unit) tablet quetiapine 200 mg tablet 200 mg PO HS Insomnia 03/22/22 04/22/22 Previous Rx's Medication Instructions Recorded pantoprazole 40 mg tablet,delayed 40 mg PO DAILY GERD #90 tabs 10/27/21 release albuterol sulfate 90 mcg/actuation 2 inh inhalation Q6H PRN shortness 10/30/21 aerosol inhaler of breath or wheezing 90 days #8.5 grams ipratropium 0.5 mg-albuterol 3 mg 3 ml inhalation QID PRN shortness 10/30/21 (2.5 mg base)/3 mL nebulization of breath or wheezing 90 days #360 soln mL clonazepam 0.5 mg tablet 0.5 mg PO BID Anxiety #60 tabs 04/16/22 hydrocodone 10 mg-acetaminophen 1 tab PO QID Pain #120 tabs
--- NOTE | 2022-04-22 11:29 | PC.NURSE ---
ATB NOT GIVEN DUE TO WAITING ON CULTURES TO BE COMPLETE
[2022-04-22 11:36] LABS: Basophils # 0.1 K/mm3 (0-0.2); Basophils % 0.3 % (0.1-2.0); Eosinophils # 0.3 K/mm3 (0.0-0.4); Hemoglobin 10.7 g/dL (12.2-16.2); Lymphocytes # 1.5 K/mm3 (0.7-4.5); Mean Corpuscular HGB Conc 32.3 g/dL (31.8-35.4); Mean Corpuscular Hemoglobin 30.5 pg (27.0-31.2); Mean Corpuscular Volume 94.3 fl (81-99); Mean Platelet Volume 7.4 fl (7.4-10.4); Monocytes # 1.4 K/mm3 (0.1-1.0); Monocytes % 5.5 % (1.7-9.3); Neutrophils # 22.3 K/mm3 (1.8-7.8); Neutrophils % 87.2 % (37.0-80.0); Platelet Count 774 K/mm3 (142-424); Red Cell Distribution Width 13.3 % (11.5-17.5); White Blood Count 25.6 K/mm3 (4.8-10.8)
--- NOTE | 2022-04-22 11:39 | PC.NURSE ---
contacted RT of vbg order
[2022-04-22 11:43] LABS: Alanine Aminotransferase 142 U/L (12-78); Albumin Level 3.6 g/dl (3.5-5.0); Albumin/Globulin Ratio 1.1 (1.1-1.8); Alkaline Phosphatase 190 U/L (38-126); Aspartate Amino Transferase 409 U/L (14-36); Bilirubin,Total 1.1 mg/dl (0.2-1.3); Blood Urea Nitrogen 12 mg/dl (7-17); Calcium 8.4 mg/dl (8.4-10.2); Carbon Dioxide 39 mmol/L (22.0-30.0); Chloride 84 mmol/L (98-107); Creatinine Clearance Estimated 48 mL/min (50-200); Estimated Glomerular Filt Rate 161 ml/min (>60); GFR (African American) 195 ML/MIN (>60); Globulin 3.3 g/dL (1.3-3.2); Glucose 130 mg/dl (74-100); Sodium 130 mmol/L (136-145); Total Protein,Serum 6.9 g/dl (6.3-8.2)
[2022-04-22 11:44] LABS: MANUAL DIFFERENTIAL MANUAL DIFFERENTIAL (MANUAL DIFF)
--- NOTE | 2022-04-22 11:45 | PC.NURSE ---
swabbed pt for covid and sent up to lab
--- NOTE | 2022-04-22 11:46 | PC.NURSE ---
2nd blood culture sent to lab and VBG drawn and given to RT
--- NOTE | 2022-04-22 11:47 | PC.NURSE ---
lab called with critical potassium level, notified ER MD also alerted MD of pt WBC elevated
[2022-04-22 11:51] LABS: VBG Base Excess 6.5 mmol/L (-2.4-2.3); VBG HCO3 30.2 mmol/L (23-30); VBG Oxygen Saturation 91.1 % (50-70); VBG PCO2 42.7 mmol/L (35-51); VBG PH 7.47 mmol/L (7.31-7.41); VBG PO2 61.7 mmol/L (28-40); VBG Total CO2 31.5 mmol/L (23-27)
[2022-04-22 11:53] LABS: Coronavirus 19, PCR Not Detected (NotDetected); Influenza A, PCR Not Detected (NotDetected); Influenza B, PCR Not Detected (NotDetected)
[2022-04-22 11:55] LABS: NT Pro Brain Natriuretic Pep. 388 pg/mL (0-125)
[2022-04-22 11:58] LABS: Lactic Acid 1.1 mmol/L (0.7-2.1)
[2022-04-22 11:59] LABS: Procalcitonin 67.7 ng/mL (0.0-2.0)
[2022-04-22 12:01] LABS: Troponin I < 0.01 ng/ml (0.00-0.034)
[2022-04-22 12:03] LABS: Eosinophils % 1 % (0-3); Lymphocytes % 7 % (10-50); Monocytes % 7 % (2-9); Neutrophils % 85 % (42-76); Total Cells Counted 100
[2022-04-22 12:05] LABS: Platelet Estimate Moderate Increase; RBC Morphology Normal
--- NOTE | 2022-04-22 12:26 | PC.NURSE ---
pt to CT via stretcher
--- NOTE | 2022-04-22 12:40 | PC.NURSE ---
From CT via stretcher
--- NOTE | 2022-04-22 13:16 | PC.NURSE ---
NADIRA KAY spoke with Dr. Tamayo, agreeable for admission
--- NOTE | 2022-04-22 13:17 | PC.NURSE ---
Per Dr. Paez, discontinued 2nd 1gm Ceftriaxone.
--- NOTE | 2022-04-22 13:17 | PC.NURSE ---
notified care management of admission, spoke with manav
--- NOTE | 2022-04-22 13:21 | PC.NURSE ---
contacted rad to check on status of CT result, rad staff states scan is locked
--- NOTE | 2022-04-22 13:43 | PC.NURSE ---
dr phan at bedside
--- NOTE | 2022-04-22 13:43 | PC.NURSE ---
assisted pt to the restroom,no complaints at this time
--- NOTE | 2022-04-22 14:04 | PC.NURSE ---
pt resting in bed call light at bedside
[2022-04-22 14:05] LABS: Troponin I < 0.01 ng/ml (0.00-0.034)
--- NOTE | 2022-04-22 14:21 | PC.NURSE ---
Report given to MAXIMILIAN Valverde
--- NOTE | 2022-04-22 14:33 | EXP.HP ---
History of Present Illness *Admission Date: 04/22/22 *Reason for visit:: Chief complaint: Shortness of air *History of present illness: This is a 62-year-old female that presents to [facility] emergency department at the request of her lead sales consultant for shortness of air. The patient presented to her lead sales consultant office and was identified with low O2 sats and acute dyspnea and sent to the ED for evaluation. She reports that she has not felt well since February 2022. She has identified daily shortness of air made worse with exertional activity. Her past medical history significant for pulmonary nodules, COPD, hypertension and colon polyps. She reports routine use of her inhaler therapy with no relief of symptomatology. She denies associated retrosternal chest pain, palpitations, confusion or hallucinations. She describes a significant smoking history of greater than 1 pack/day for 44 years and quit in 2018. Her most recent PFTs in 2021 identified FEV1 43%. Recent chest imaging identified concerns with lung mass and metastases. She describes a hospital admission toward the end of February and reports that she is still continued to feel badly. In the ED her presenting room air sat was 80%. She was tachypneic and tachycardic with leukocytoses and elevated procalcitonin. CTA of the chest is pending at the time of admission. PFSH PFSH Medical History Anemia Chronic hypoxemic respiratory failure COPD (chronic obstructive pulmonary disease) HTN (hypertension) Lesion of liver Lung mass Lung mass Multiple lung nodules on CT Multiple pulmonary nodules Nocturnal hypoxemia Scoliosis Stopped smoking with greater than 30 pack year history Surgical History (Updated 04/22/22 @ 14:44 by Dk Quintero MD) Cataracts, bilateral History of colonoscopy History of tonsillectomy Family History (Updated 04/22/22 @ 14:44 by Dk Quintero MD) Mother Hypertension Father Alcoholism Social History Smoking Status: Former smoker pack-years: 40 second hand exposure: Yes alcohol intake: never substance use type: denies use current occupational status: unemployed and disabled Travel in the last 8 weeks: None household members: none housing: house current occupational exposures/hazards: No caffeine: Yes Review of Systems Review of Systems Review of systems:: pertinent systems reviewed and negative unless documented below Constitutional Constitutional: Denies headache(s) and Reports weakness Eyes Eyes: Denies loss of vision ENT Ears, Nose, Mouth, and Throat: Denies headache(s) *Cardiovascular Cardiovascular: Denies chest pain, Denies chest pain at rest, Reports dyspnea, Reports dyspnea on exertion and Denies palpitations *Respiratory Respiratory: Reports cough, Reports dyspnea, Reports dyspnea on exertion, Denies hemoptysis and Reports wheezing *Musculoskeletal Musculoskeletal: Denies numbness *Neurologic Neurologic: Denies headache(s), Denies loss of vision, Denies numbness and Reports weakness Endocrine Endocrine: Denies palpitations Allergic/Immunologic Allergic/Immunologic: Reports wheezing Meds Home Medications and Allergies Home Medications Medication Instructions Recorded Confirmed Type albuterol sulfate 90 mcg/actuation 2 inh inhalation Q6H PRN shortness 10/30/21 04/22/22 Rx aerosol inhaler of breath or wheezing 90 days #8.5 grams atorvastatin 20 mg tablet 20 mg PO HS Cholesterol 02/26/22 04/22/22 History fluticasone fur. 100 mcg-umeclid 1 inh inhalation DAILY Breathing 02/26/22 04/22/22 History 62.5 mcg-vilant 25 mcg problems inhalat.powder (Trelegy Ellipta) trazodone 150 mg tablet 150 mg PO HS Insomnia 02/26/22 04/22/22 History aspirin 81 mg tablet 81 mg PO DAILY Heart disease 03/11/22 04/22/22 History bisoprolol 5 1 tab PO DAILY High blood pressure 03/11/22 04/22/22 History mg-hydrochlorothiazide 6.25 mg tablet
--- NOTE | 2022-04-22 14:39 | PC.NURSE ---
Pt arrived to the floor at this time
[2022-04-22 14:58] LABS: Iron 20 ug/dL (37-170)
--- NOTE | 2022-04-22 15:01 | EXP.PULM.CON ---
[facility] Disclaimer: The information contained in this section may have been updated after the patient was seen, as this information can be updated by other users. Medical History Anemia Chronic hypoxemic respiratory failure COPD (chronic obstructive pulmonary disease) HTN (hypertension) Lesion of liver Lung mass Lung mass Multiple lung nodules on CT Multiple pulmonary nodules Nocturnal hypoxemia Scoliosis Stopped smoking with greater than 30 pack year history Surgical History (Updated 04/22/22 @ 14:44 by Dk Quintero MD) Cataracts, bilateral History of colonoscopy History of tonsillectomy Family History (Updated 04/22/22 @ 15:47 by Dk Quintero MD) Mother Hypertension Father Alcoholism Social History Smoking Status: Former smoker pack-years: 40 second hand exposure: Yes alcohol intake: never substance use type: denies use current occupational status: unemployed and disabled Travel in the last 8 weeks: None household members: none housing: house current occupational exposures/hazards: No caffeine: Yes Review of Systems Constitutional Constitutional: Reports fatigue, Denies headache(s) and Reports weakness Eyes Eyes: Denies itchy eyes and Denies loss of vision ENT Ears, Nose, Mouth, and Throat: Denies headache(s), Denies lip swelling and Denies throat swelling *Cardiovascular Cardiovascular: Reports dyspnea and Reports dyspnea on exertion *Respiratory Respiratory: Reports chest congestion, Reports cough, Reports dyspnea, Reports dyspnea on exertion, Denies excessive phlegm production and Reports wheezing *Gastrointestinal Gastrointestinal: Denies abdominal pain, Denies belching and Denies cramping *Musculoskeletal Musculoskeletal: Denies numbness *Neurologic Neurologic: Denies headache(s), Denies loss of vision, Denies numbness and Reports weakness Psychiatric Psychiatric: Denies homicidal ideation and Denies suicidal ideation Endocrine Endocrine: Reports fatigue and Denies heat intolerance Hematologic/Lymphatic Hematologic/Lymphatic: Denies easy bleeding and Denies lymphadenopathy Allergic/Immunologic Allergic/Immunologic: Denies itchy eyes, Denies lip swelling, Denies throat swelling and Reports wheezing Pulmonology Exam Inpatient Vital signs and Labs for Last 24 Hours: Temp Pulse Resp BP Pulse Ox 98.0 F 98 H 20 107/76 L 93 L 04/22/22 14:49 04/22/22 14:49 04/22/22 14:49 04/22/22 14:49 04/22/22 14:49 Laboratory Results - last 24 hr 04/22/22 11:20: Lactate 1.1 04/22/22 11:20: Procalcitonin 67.7 H 04/22/22 11:24: VBG pH 7.47 H, VBG pCO2 42.7, VBG pO2 61.7 H, VBG HCO3 30.2 H, VBG Total CO2 31.5 H, VBG O2 Saturation 91.1 H, VBG Base Excess 6.5 H 04/22/22 11:24: WBC 25.6 H*, RBC 3.50 L, Hgb 10.7 L, Hct 33.0 L, MCV 94.3, MCH 30.5, MCHC 32.3, RDW 13.3, Plt Count 774 H, MPV 7.4, Neut % (Auto) 87.2 H, Lymph % (Auto) 6.0 L, [place] % (Auto) 5.5, Eos % (Auto) 1.0, Baso % (Auto) 0.3, Neut # (Auto) 22.3 H, Lymph # (Auto) 1.5, [place] # (Auto) 1.4 H, Eos # (Auto) 0.3, Baso # (Auto) 0.1, Total Counted 100, Neutrophils % (Manual) 85 H, Lymphocytes % (Manual) 7 L, Monocytes % (Manual) 7, Eosinophils % (Manual) 1, Platelet Estimate Moderate increase, RBC Morphology Normal 04/22/22 11:24: Sodium 130 L, Potassium 3.0 L, Chloride 84 L, Carbon Dioxide 39 H, Anion Gap 10.0, BUN 12, Creatinine 0.40 L, Estimated Creat Clear 48, Estimated GFR 161, Est GFR ( Amer) 195, Glucose 130 H, Calcium 8.4, Total Bilirubin 1.1, AST 409 H*, ALT 142 H, Alkaline Phosphatase 190 H, Troponin I < 0.01, NT-Pro-B Natriuret Pep 388 H, Total Protein 6.9, Albumin 3.6, Globulin 3.3 H, Albumin/Globulin Ratio 1.1 04/22/22 11:39: SARS-CoV-2 (PCR) Not detected, Influenza A Untype (PCR) Not detected, Influenza Type B (PCR) Not detected 04/22/22 13:30: Troponin I < 0.01 I & O for Labs for Last 24 Hours: Intake & Output 04/19/22 04/20/22 04/21/22 04/22/22 23:59 23:5
[2022-04-22 15:02] LABS: INR 1.54 (0.9-1.1); Prothrombin Time 16.2 seconds (10.1-12.5)
--- NOTE | 2022-04-22 15:02 | EXP.PHA.CONS ---
Pharmacy Consult Date: 04/22/22 Time: 15:02 Referring provider: DR. JOHNSON Reason for Consult:: VANCOMYCIN DOSING Allergies Allergy/AdvReac Type Severity Reaction Status Date / Time lamotrigine [From LAMICTAL] Allergy Unknown Verified 04/22/22 10:08 Home Medications Medication Instructions Recorded Confirmed Type albuterol sulfate 90 mcg/actuation 2 inh inhalation Q6H PRN shortness 10/30/21 04/22/22 Rx aerosol inhaler of breath or wheezing 90 days #8.5 grams atorvastatin 20 mg tablet 20 mg PO HS Cholesterol 02/26/22 04/22/22 History fluticasone fur. 100 mcg-umeclid 1 inh inhalation DAILY Breathing 02/26/22 04/22/22 History 62.5 mcg-vilant 25 mcg problems inhalat.powder (Trelegy Ellipta) trazodone 150 mg tablet 150 mg PO HS Insomnia 02/26/22 04/22/22 History aspirin 81 mg tablet 81 mg PO DAILY Heart disease 03/11/22 04/22/22 History bisoprolol 5 1 tab PO DAILY High blood pressure 03/11/22 04/22/22 History mg-hydrochlorothiazide 6.25 mg tablet cholecalciferol (vitamin D3) 25 1,000 unit PO DAILY Supplement 03/22/22 04/22/22 History mcg (1,000 unit) tablet quetiapine 200 mg tablet 200 mg PO HS Insomnia 03/22/22 04/22/22 History clonazepam 0.5 mg tablet 0.5 mg PO BID Anxiety #60 tabs 04/16/22 04/22/22 Rx amoxicillin 500 mg-potassium 1 tab PO Q8H Infection 04/22/22 04/22/22 History clavulanate 125 mg tablet (Augmentin) hydrocodone 10 mg-acetaminophen 1 tab PO QIDP PRN Pain 04/22/22 04/22/22 History 325 mg tablet pantoprazole 40 mg tablet,delayed 40 mg PO DAILY acid reflux 04/22/22 04/22/22 History release New Prescriptions to Start Prescriptions: Height: 1.55 m Weight: 53.24 kg Laboratory Results:: Laboratory Results - last 24 hr 04/22/22 11:20: Lactate 1.1 04/22/22 11:20: Procalcitonin 67.7 H 04/22/22 11:24: VBG pH 7.47 H, VBG pCO2 42.7, VBG pO2 61.7 H, VBG HCO3 30.2 H, VBG Total CO2 31.5 H, VBG O2 Saturation 91.1 H, VBG Base Excess 6.5 H 04/22/22 11:24: WBC 25.6 H*, RBC 3.50 L, Hgb 10.7 L, Hct 33.0 L, MCV 94.3, MCH 30.5, MCHC 32.3, RDW 13.3, Plt Count 774 H, MPV 7.4, Neut % (Auto) 87.2 H, Lymph % (Auto) 6.0 L, [place] % (Auto) 5.5, Eos % (Auto) 1.0, Baso % (Auto) 0.3, Neut # (Auto) 22.3 H, Lymph # (Auto) 1.5, [place] # (Auto) 1.4 H, Eos # (Auto) 0.3, Baso # (Auto) 0.1, Total Counted 100, Neutrophils % (Manual) 85 H, Lymphocytes % (Manual) 7 L, Monocytes % (Manual) 7, Eosinophils % (Manual) 1, Platelet Estimate Moderate increase, RBC Morphology Normal 04/22/22 11:24: Sodium 130 L, Potassium 3.0 L, Chloride 84 L, Carbon Dioxide 39 H, Anion Gap 10.0, BUN 12, Creatinine 0.40 L, Estimated Creat Clear 48, Estimated GFR 161, Est GFR ( Amer) 195, Glucose 130 H, Calcium 8.4, Total Bilirubin 1.1, AST 409 H*, ALT 142 H, Alkaline Phosphatase 190 H, Troponin I < 0.01, NT-Pro-B Natriuret Pep 388 H, Total Protein 6.9, Albumin 3.6, Globulin 3.3 H, Albumin/Globulin Ratio 1.1 04/22/22 11:39: SARS-CoV-2 (PCR) Not detected, Influenza A Untype (PCR) Not detected, Influenza Type B (PCR) Not detected 04/22/22 13:30: Troponin I < 0.01 Medical History: Medical History Anemia Chronic hypoxemic respiratory failure COPD (chronic obstructive pulmonary disease) HTN (hypertension) Lesion of liver Lung mass Lung mass Multiple lung nodules on CT Multiple pulmonary nodules Nocturnal hypoxemia Scoliosis Stopped smoking with greater than 30 pack year history Assessment and Plan Assessment and plan all Dx Assessment and Plan for all problems:: Pharmacokinetic dosing service Objective: Patient: Floor: Age: 62 yo Serum creatinine: 0.40 mg/dL Height: 61.0 Inches Weight (kg): 53.2 Assessment: IBW (kg): 47.80 Dosing wt(kg): 53.2 Estimated Creatinine clearance (ml/min): 108.6 CRCL method: Cockcroft and Gault using ibw(default). Drug selected: Vancomycin Loading dose (mg): Vd
[2022-04-22 15:04] LABS: Lactate Dehydrogenase 394 U/L (313-618)
[2022-04-22 15:07] LABS: Total Iron Binding Capacity 211 ug/dL (265-497)
[2022-04-22 15:09] LABS: C-Reactive Protein 285.2 mg/L (0-4)
--- NOTE | 2022-04-22 15:17 | HMH.PHAINT1 ---
Pharmacy Intervention Comments: Medication reconciliation completed using external fill history
--- NOTE | 2022-04-22 17:12 | PC.NURSE ---
pt presented this afternoon for admission from ED. pt alert and oriented, vss. lungs sound diminished t/o, pt on 3LNC, no distress noted. bowel sounds active, pt does c/o constipation and medicated apr. pt has c/o pain generalized pain and was medicated per apr. pt informed that she will be npo after midnight for a procedure tomorrow. Dr. Coffman did come up and speak with patient regarding procedure. Klonopin given prior to [address] Rojas to give dose early as well as 2100 dose.
[2022-04-22 18:51] LABS: Troponin I < 0.01 ng/ml (0.00-0.034)
[2022-04-23] VITALS (28 sets, daily range): BP systolic 92–137; BP diastolic 51–82; PULSE 78–110; RESP 12–24; TEMP 36.1–37.2; O2SAT 89–98; BMI 22.5
--- NOTE | 2022-04-23 | US_ITS ---
FINAL REPORT TECHNIQUE: Sonographic images of the right upper quadrant were obtained. CLINICAL HISTORY: Transaminitis COMPARISON: none FINDINGS: PANCREAS: Obscured. LIVER: Fatty infiltrated. No focal hepatic lesion. No intrahepatic biliary ductal dilatation. GALLBLADDER: No gallstones. No gallbladder wall thickening or pericholecystic fluid. COMMON DUCT: 4 mm. Normal for age. RIGHT KIDNEY: The right kidney measures 10.7 cm. There is no hydronephrosis, mass, or stone. FREE FLUID: None. Portal and hepatic veins are patent with normal direction of flow. IMPRESSION: Fatty infiltration of the liver. Reviewed, Interpreted and Dictated by Ruth Urban MD Transcribed by Janae Linares Authenticated and [facility]
[2022-04-23 06:55] LABS: Basophils % 0.1 % (0.1-2.0); Eosinophils % 0.1 % (0.1-12.0); Hematocrit 28.8 % (37.0-47.0); Lymphocytes # 0.8 K/mm3 (0.7-4.5); Lymphocytes % 4.3 % (10-50); Mean Corpuscular HGB Conc 31.1 g/dL (31.8-35.4); Mean Corpuscular Hemoglobin 30.3 pg (27.0-31.2); Mean Corpuscular Volume 97.4 fl (81-99); Mean Platelet Volume 7.2 fl (7.4-10.4); Monocytes # 0.5 K/mm3 (0.1-1.0); Monocytes % 2.9 % (1.7-9.3); Neutrophils # 16.9 K/mm3 (1.8-7.8); Neutrophils % 92.6 % (37.0-80.0); Platelet Count 754 K/mm3 (142-424); Red Blood Count 2.96 M/mm3 (4.20-5.40); Red Cell Distribution Width 13.2 % (11.5-17.5); White Blood Count 18.3 K/mm3 (4.8-10.8)
[2022-04-23 06:58] LABS: Alanine Aminotransferase 87 U/L (12-78); Albumin/Globulin Ratio 1.1 (1.1-1.8); Alkaline Phosphatase 181 U/L (38-126); Anion Gap 5.8 mEq/L (5-15); Aspartate Amino Transferase 133 U/L (14-36); Bilirubin,Total 0.3 mg/dl (0.2-1.3); Blood Urea Nitrogen 8 mg/dl (7-17); Calcium 8.5 mg/dl (8.4-10.2); Carbon Dioxide 37 mmol/L (22.0-30.0); Chloride 99 mmol/L (98-107); Creatinine Clearance Estimated 49 mL/min (50-200); Estimated Glomerular Filt Rate 225 ml/min (>60); GFR (African American) 272 ML/MIN (>60); Globulin 2.8 g/dL (1.3-3.2); Glucose 224 mg/dl (74-100); MANUAL DIFFERENTIAL MANUAL DIFFERENTIAL (MANUAL DIFF); Potassium 3.8 mmoL/L (3.5-5.1); Sodium 138 mmol/L (136-145); Total Protein,Serum 5.8 g/dl (6.3-8.2)
[2022-04-23 07:02] LABS: INR 1.43 (0.9-1.1); Prothrombin Time 15.1 seconds (10.1-12.5)
[2022-04-23 07:14] LABS: Procalcitonin 44.5 ng/mL (0.0-2.0)
--- NOTE | 2022-04-23 07:53 | EXP.PN ---
Subjective *Date: 04/23/22 *Time: 11:40 Interval history: Date of service April 23, 2022 The patient reports no acute events overnight. She is quite distressed about recent imaging reports and concerns for lung cancer. Pulmonology has evaluated the patient. Nursing staff report that she remains afebrile with stable vital signs and saturating appropriately on 3 L of oxygen via nasal cannula. We have reviewed and discussed her morning labs and I have personally interpreted her labs as follows: A CBC with an improved leukocytoses white blood cell count 18.3, hemoglobin 9, hematocrit 29, platelet count 754, INR 1.43, electrolytes normal, CO2 37, BUN 8, creatinine 0.3, glucose trend under 270, magnesium 2.0, downward trending LFTs including AST and ALT, downward trending procalcitonin at 44.5. We have discussed CTA findings of chest including left upper lobe lesion 5.5 cm and left lower lobe lesion 2.4 cm. She is tolerating her obstructive pneumonia therapy with no adverse events. She is going down for bronchoscopy today. Exam Data for Last 24 hours Vital signs and Labs for Last 24 Hours: Temp Pulse Resp BP Pulse Ox 98.0 F 85 24 137/78 94 L 04/23/22 04:00 04/23/22 06:20 04/23/22 04:00 04/23/22 04:00 04/23/22 06:20 Laboratory Results - last 24 hr 04/22/22 11:20: Lactate 1.1 04/22/22 11:20: Procalcitonin 67.7 H 04/22/22 11:20: Iron 20 L, TIBC 211 L, Iron Saturation 9.82226 L 04/22/22 11:20: Lactate Dehydrogenase 394, C-Reactive Protein 285.2 H 04/22/22 11:20: PT 16.2 H, INR 1.54 H 04/22/22 11:24: VBG pH 7.47 H, VBG pCO2 42.7, VBG pO2 61.7 H, VBG HCO3 30.2 H, VBG Total CO2 31.5 H, VBG O2 Saturation 91.1 H, VBG Base Excess 6.5 H 04/22/22 11:24: WBC 25.6 H*, RBC 3.50 L, Hgb 10.7 L, Hct 33.0 L, MCV 94.3, MCH 30.5, MCHC 32.3, RDW 13.3, Plt Count 774 H, MPV 7.4, Neut % (Auto) 87.2 H, Lymph % (Auto) 6.0 L, [place] % (Auto) 5.5, Eos % (Auto) 1.0, Baso % (Auto) 0.3, Neut # (Auto) 22.3 H, Lymph # (Auto) 1.5, [place] # (Auto) 1.4 H, Eos # (Auto) 0.3, Baso # (Auto) 0.1, Total Counted 100, Neutrophils % (Manual) 85 H, Lymphocytes % (Manual) 7 L, Monocytes % (Manual) 7, Eosinophils % (Manual) 1, Platelet Estimate Moderate increase, RBC Morphology Normal 04/22/22 11:24: Sodium 130 L, Potassium 3.0 L, Chloride 84 L, Carbon Dioxide 39 H, Anion Gap 10.0, BUN 12, Creatinine 0.40 L, Estimated Creat Clear 48, Estimated GFR 161, Est GFR ( Amer) 195, Glucose 130 H, Calcium 8.4, Total Bilirubin 1.1, AST 409 H*, ALT 142 H, Alkaline Phosphatase 190 H, Troponin I < 0.01, NT-Pro-B Natriuret Pep 388 H, Total Protein 6.9, Albumin 3.6, Globulin 3.3 H, Albumin/Globulin Ratio 1.1 04/22/22 11:39: SARS-CoV-2 (PCR) Not detected, Influenza A Untype (PCR) Not detected, Influenza Type B (PCR) Not detected 04/22/22 13:30: Troponin I < 0.01 04/22/22 17:34: Troponin I < 0.01 04/23/22 06:30: WBC 18.3 H D, RBC 2.96 L, Hgb 9.0 L D, Hct 28.8 L, MCV 97.4, MCH 30.3, MCHC 31.1 L, RDW 13.2, Plt Count 754 H, MPV 7.2 L, Neut % (Auto) 92.6 H, Lymph % (Auto) 4.3 L, [place] % (Auto) 2.9, Eos % (Auto) 0.1, Baso % (Auto) 0.1, Neut # (Auto) 16.9 H, Lymph # (Auto) 0.8, [place] # (Auto) 0.5, Eos # (Auto) 0.0, Baso # (Auto) 0.0 04/23/22 06:30: PT 15.1 H, INR 1.43 H 04/23/22 06:30: Sodium 138, Potassium 3.8 D, Chloride 99, Carbon Dioxide 37 H, Anion Gap 5.8, BUN 8 D, Creatinine 0.30 L D, Estimated Creat Clear 49, Estimated GFR 225, Est GFR ( Amer) 272 D, Glucose 224 H D, Calcium 8.5, Magnesium 2.0, Total Bilirubin 0.3, AST 133 H D, ALT 87 H D, Alkaline Phosphatase 181 H, Total Protein 5.8 L, Albumin 3.0 L D, Globulin 2.8, Albumin/Globulin Ratio 1.1, Procalcitonin 44.5 H I & O for Last 24 hours: Intake & Output 04/20/22 04/21/22 04/22/22 04/23/22 23:59 23:59 23:59 23:59 Intake Total 1188 / 1188 Output Total 0 / 0 Balance 1187 / 1187 0 / 0 Weight 53.24 kg 54.068 kg Constitutional Constitutional: no acute distress *Routine HEENT Exam Head: Present normocephalic Eye: Presen
[2022-04-23 07:56] LABS: Lymphocytes % 5 % (10-50); Monocytes % 4 % (2-9); Neutrophils % 91 % (42-76); Total Cells Counted 100
[2022-04-23 07:57] LABS: Platelet Estimate Moderate Increase; RBC Morphology Normal
[2022-04-23 08:09] LABS: Vitamin B12 350 pg/mL (239-931)
[2022-04-23 08:24] LABS: Ferritin 490 ng/ml (11.1-264)
--- NOTE | 2022-04-23 08:57 | XR_ITS ---
FINAL REPORT CLINICAL HISTORY: BRONCH IN OR ft: 1:02 FINDINGS: FLUOROSCOPY LESS THAN 1 HOUR HISTORY: Fluoroscopy guided injection. FINDINGS: Fluoroscopic guidance was provided. A single spot film was obtained. 1 minutes 2 seconds of fluoroscopy time were used. IMPRESSION: As above Reviewed, Interpreted and Dictated by Ruth Urban MD Transcribed by Janae Linares Authenticated and . [facility]
--- NOTE | 2022-04-23 09:41 | P.PNANES_ITS ---
[facility] Anesthesia Record Part I Anesthesia Record I Intake, IV Amount: 800 Estimated blood loss (mL): 0 Urine output (mL): 0 Blood Pressure: 106/73 SaO2: 94 Pulse Rate: 106 Respiratory Rate: 12 Temperature: 97.5 F Patient is:: Awake and Stable Stable to PACU at:: 09:35
--- NOTE | 2022-04-23 09:45 | XR_ITS ---
FINAL REPORT CLINICAL HISTORY: post bronch in or COMPARISON: 03/22/2022 FINDINGS: A portable view of the chest was obtained. Comparison is made to a prior exam dated 03/22/2022. Cardiac and mediastinal silhouettes are within normal limits. There has been interval development of multifocal left lung opacity. There are increased interstitial markings which are similar to the prior study. Right basilar airspace disease is improved. No pneumothorax. IMPRESSION: Interval development multifocal left lung opacity. Improved right basilar airspace disease Reviewed, Interpreted and Dictated by Ruth Urban MD Transcribed by Jaane Linares Authenticated and [facility]
--- NOTE | 2022-04-23 10:18 | P.PCN_ITS ---
Procedure: Date: 04/23/22 Patient Date of :: 1960 Procedure Performed:: Bronchoscopy with airway examination, bronchoalveolar lavage, transbronchial biopsy and EBUS FNA Indications:: Lung mass, multiple lung nodules and lymphadenopathy Performing Provider:: Salomón Coffman MD Referring Provider:: Dr. Root and Dr. Low Sedation:: General anesthesia Procedure:: Bronchoscopy airway examination, bronchoalveolar lavage, transbronchial lung biopsy and EBUS FNA: A clean DIAGNOSTIC bronchoscopy was advanced through the ET tube and airways were examined up to subsegmental bronchi. No evidence of mucoid secretions, mucous plugging active bleeding/old blood clots noted. Bronchial lumen appeared to be narrowed at less than 50% at the left upper lobe and left lower lobe. No obvious endobronchial lesions noted. Rest of the airways appeared grossly normal. Bronchoalveolar lavage was performed in the LEFT UPPER LOBE with instillation of 60 cc normal saline with return of 35 cc back. BAL fluid was sent for cell count and differential along with bacterial fungal and AFB stain and cultures. Transbronchial biopsy was performed in the LEFT UPPER LOBE with a total of 8 biopsies performed, 6 biopsy specimens were sent in formalin for cytopathologic examination. The other 2 biopsy samples, were sent one each in two separate normal saline specimen cups for bacterial fungal and AFB stain cultures. Special request was also made for the pathologist to evaluate for AFB and fungal organisms on the cytopathologic examination. The diagnostic bronchoscopy was retracted and EBUS scope was advanced for lymph node surveillance. Patient noted to have lymphadenopathy at stations 10 L and station 7. A total of 5 passes were done at each lymph node station the fine- needle aspiration specimen was sent separately in CytoLyt for cytopathologic examination. AFB and fungal stains were requested on both transbronchial biopsy and EBUS FNA specimens Patient tolerated the procedure with no immediate acute complications. We will follow the patient in pulmonary clinic in 7 to 10 days. Findings:: Please see the procedure note Recommendations:: Please see the procedure note and progress note from today Complications:: No acute immediate complications. Estimated blood obtained (mL): 10
--- NOTE | 2022-04-23 11:21 | EXP.PULM.PN ---
Subjective *Date: 04/23/22 *Time: 11:21 Interval history: No acute respiratory vents overnight. Patient denies any new respiratory complaint Pulmonology Exam Inpatient Vital signs and Labs for Last 24 Hours: Temp Pulse Resp BP Pulse Ox 97.5 F L 106 H 20 116/65 93 L 04/23/22 09:43 04/23/22 10:15 04/23/22 10:15 04/23/22 10:15 04/23/22 10:15 Laboratory Results - last 24 hr 04/22/22 11:20: Lactate 1.1 04/22/22 11:20: Procalcitonin 67.7 H 04/22/22 11:20: Iron 20 L, TIBC 211 L, Iron Saturation 9.97404 L 04/22/22 11:20: Lactate Dehydrogenase 394, C-Reactive Protein 285.2 H 04/22/22 11:20: PT 16.2 H, INR 1.54 H 04/22/22 11:24: VBG pH 7.47 H, VBG pCO2 42.7, VBG pO2 61.7 H, VBG HCO3 30.2 H, VBG Total CO2 31.5 H, VBG O2 Saturation 91.1 H, VBG Base Excess 6.5 H 04/22/22 11:24: WBC 25.6 H*, RBC 3.50 L, Hgb 10.7 L, Hct 33.0 L, MCV 94.3, MCH 30.5, MCHC 32.3, RDW 13.3, Plt Count 774 H, MPV 7.4, Neut % (Auto) 87.2 H, Lymph % (Auto) 6.0 L, [place] % (Auto) 5.5, Eos % (Auto) 1.0, Baso % (Auto) 0.3, Neut # (Auto) 22.3 H, Lymph # (Auto) 1.5, [place] # (Auto) 1.4 H, Eos # (Auto) 0.3, Baso # (Auto) 0.1, Total Counted 100, Neutrophils % (Manual) 85 H, Lymphocytes % (Manual) 7 L, Monocytes % (Manual) 7, Eosinophils % (Manual) 1, Platelet Estimate Moderate increase, RBC Morphology Normal 04/22/22 11:24: Sodium 130 L, Potassium 3.0 L, Chloride 84 L, Carbon Dioxide 39 H, Anion Gap 10.0, BUN 12, Creatinine 0.40 L, Estimated Creat Clear 48, Estimated GFR 161, Est GFR ( Amer) 195, Glucose 130 H, Calcium 8.4, Total Bilirubin 1.1, AST 409 H*, ALT 142 H, Alkaline Phosphatase 190 H, Troponin I < 0.01, NT-Pro-B Natriuret Pep 388 H, Total Protein 6.9, Albumin 3.6, Globulin 3.3 H, Albumin/Globulin Ratio 1.1 04/22/22 11:39: SARS-CoV-2 (PCR) Not detected, Influenza A Untype (PCR) Not detected, Influenza Type B (PCR) Not detected 04/22/22 13:30: Troponin I < 0.01 04/22/22 17:34: Troponin I < 0.01 04/23/22 06:30: Ferritin 490 H 04/23/22 06:30: WBC 18.3 H D, RBC 2.96 L, Hgb 9.0 L D, Hct 28.8 L, MCV 97.4, MCH 30.3, MCHC 31.1 L, RDW 13.2, Plt Count 754 H, MPV 7.2 L, Neut % (Auto) 92.6 H, Lymph % (Auto) 4.3 L, [place] % (Auto) 2.9, Eos % (Auto) 0.1, Baso % (Auto) 0.1, Neut # (Auto) 16.9 H, Lymph # (Auto) 0.8, [place] # (Auto) 0.5, Eos # (Auto) 0.0, Baso # (Auto) 0.0, Total Counted 100, Neutrophils % (Manual) 91 H, Lymphocytes % (Manual) 5 L, Monocytes % (Manual) 4, Platelet Estimate Moderate increase, RBC Morphology Normal 04/23/22 06:30: PT 15.1 H, INR 1.43 H 04/23/22 06:30: Sodium 138, Potassium 3.8 D, Chloride 99, Carbon Dioxide 37 H, Anion Gap 5.8, BUN 8 D, Creatinine 0.30 L D, Estimated Creat Clear 49, Estimated GFR 225, Est GFR ( Amer) 272 D, Glucose 224 H D, Calcium 8.5, Magnesium 2.0, Total Bilirubin 0.3, AST 133 H D, ALT 87 H D, Alkaline Phosphatase 181 H, Total Protein 5.8 L, Albumin 3.0 L D, Globulin 2.8, Albumin/Globulin Ratio 1.1, Procalcitonin 44.5 H 04/23/22 06:30: Vitamin B12 350 I & O for Labs for Last 24 Hours: Intake & Output 04/20/22 04/21/22 04/22/22 04/23/22 23:59 23:59 23:59 23:59 Intake Total 1188 / 1188 800 / 800 Output Total 0 / 0 Balance 1187 / 1187 800 / 800 Weight 117 lb 6 oz 119 lb 3.2 oz Constitutional: Present moderate distress Head: Present normocephalic and atraumatic ENT: Present normal exam, normal oropharynx and mucous membranes moist Neck: Present normal inspection and full ROM Respiratory: Present respiratory distress, rhonchi, wheezes and able to speak in complete sentences Cardiac: Present S1/S2, Tachycardia and radial pulses present GI: Present soft and distention; Absent tenderness or guarding Rectal (female): Present deferred (female): Present deferred Skin: Present intact; Absent cyanosis or jaundice Neuro: Present alert, awake and oriented x 3 Extremities: Present normal inspection; Absent clubbing or cyanosis Psychiatric: Present normal affect and cooperative Assessment and Plan *Assessment and plan (1) P
--- NOTE | 2022-04-23 11:30 | PC.NURSE ---
medications were held prior to bronchoscopy this morning and given when patient returned from procedure. dr sanders verbally ok'd to give dvt heprin dose.
--- NOTE | 2022-04-23 11:32 | EXP.ANES.II ---
[facility] Anesthesia Record Part II Anesthesia Record Part II Discharge Time: 10:15 Destination: Surgical Day Care (OP Surgery) PACU nurse assessment reviewed?: Yes Patient Condition:: Good Anesthesia Complications:: None Swallowing reflex intact?: Yes Cyanosis?: No Blood Pressure: 116/65 Pulse Rate: 106 Temperature: 97 F Mental Status: Alert & Oriented Pain level:: 0 Nausea and/or vomitting:: None Intake, IV Amount: 0
[2022-04-24] VITALS (11 sets, daily range): BP systolic 105–158; BP diastolic 60–120; PULSE 65–106; RESP 16–22; TEMP 36.4–36.7; O2SAT 93–100; BMI 23.8; BMI 25.7
[2022-04-24 04:09] LABS: Vancomycin,Trough 8.3 ug/mL (5.0-10.0)
[2022-04-24 07:30] LABS: Alanine Aminotransferase 70 U/L (12-78); Albumin Level 2.8 g/dl (3.5-5.0); Alkaline Phosphatase 222 U/L (38-126); Anion Gap 4.7 mEq/L (5-15); Aspartate Amino Transferase 74 U/L (14-36); Bilirubin,Total 0.3 mg/dl (0.2-1.3); Blood Urea Nitrogen 13 mg/dl (7-17); Calcium 7.7 mg/dl (8.4-10.2); Carbon Dioxide 35 mmol/L (22.0-30.0); Chloride 102 mmol/L (98-107); Creatinine Clearance Estimated 52 mL/min (50-200); Estimated Glomerular Filt Rate 161 ml/min (>60); GFR (African American) 195 ML/MIN (>60); Globulin 2.9 g/dL (1.3-3.2); Glucose 181 mg/dl (74-100); Potassium 3.7 mmoL/L (3.5-5.1); Sodium 138 mmol/L (136-145); Total Protein,Serum 5.7 g/dl (6.3-8.2)
[2022-04-24 07:31] LABS: Basophils % 0.1 % (0.1-2.0); Eosinophils # 0.1 K/mm3 (0.0-0.4); Eosinophils % 0.4 % (0.1-12.0); Hemoglobin 8.7 g/dL (12.2-16.2); Lymphocytes % 4.6 % (10-50); Mean Corpuscular HGB Conc 32.1 g/dL (31.8-35.4); Mean Corpuscular Hemoglobin 31.1 pg (27.0-31.2); Mean Corpuscular Volume 96.8 fl (81-99); Monocytes # 0.6 K/mm3 (0.1-1.0); Monocytes % 2.6 % (1.7-9.3); Neutrophils # 19.3 K/mm3 (1.8-7.8); Neutrophils % 92.3 % (37.0-80.0); Platelet Count 713 K/mm3 (142-424); Red Blood Count 2.79 M/mm3 (4.20-5.40); Red Cell Distribution Width 13.4 % (11.5-17.5); White Blood Count 20.9 K/mm3 (4.8-10.8)
[2022-04-24 07:34] LABS: MANUAL DIFFERENTIAL MANUAL DIFFERENTIAL (MANUAL DIFF)
--- NOTE | 2022-04-24 08:48 | EXP.PN ---
Subjective *Date: 04/24/22 *Time: 08:48 Interval history: Date of service April 24, 2022 The patient reports that she did not rest well. She reports that she does not feel good. She describes croupy cough, wheezing and fatigue. Nursing staff report that she remains afebrile with stable vital signs and saturating appropriately on supplemental oxygen 2 L via nasal cannula. Her usual home oxygen requirement is 3 to 4 L. We have reviewed and discussed her morning labs and have personally interpreted her labs as follows: A CBC with a leukocytoses white blood cell count 21,000, hemoglobin 8.7 which is stable, hematocrit 27 and platelet count 713 consistent with her tobacco use history and thrombocytosis. Her electrolytes identify normal sodium and potassium with a BUN of 13 and creatinine 0.4. Her glucose has improved. Her LFTs have improved. Her vitamin B12 level was 350. Exam Data for Last 24 hours Vital signs and Labs for Last 24 Hours: Temp Pulse Resp BP Pulse Ox 97.9 F 106 H 20 131/82 93 L 04/24/22 08:00 04/24/22 08:00 04/24/22 08:00 04/24/22 08:00 04/24/22 08:00 Laboratory Results - last 24 hr 04/23/22 06:30: Ferritin 490 H 04/24/22 03:30: Vancomycin Trough 8.3 04/24/22 07:03: WBC 20.9 H*, RBC 2.79 L, Hgb 8.7 L, Hct 27.0 L, MCV 96.8, MCH 31.1, MCHC 32.1, RDW 13.4, Plt Count 713 H, MPV 8.0, Neut % (Auto) 92.3 H, Lymph % (Auto) 4.6 L, [place] % (Auto) 2.6, Eos % (Auto) 0.4, Baso % (Auto) 0.1, Neut # (Auto) 19.3 H, Lymph # (Auto) 1.0, [place] # (Auto) 0.6, Eos # (Auto) 0.1, Baso # (Auto) 0.0 04/24/22 07:03: Sodium 138, Potassium 3.7, Chloride 102, Carbon Dioxide 35 H, Anion Gap 4.7 L, BUN 13 D, Creatinine 0.40 L D, Estimated Creat Clear 52, Estimated GFR 161, Est GFR ( Amer) 195 D, Glucose 181 H, Calcium 7.7 L, Total Bilirubin 0.3, AST 74 H D, ALT 70, Alkaline Phosphatase 222 H, Total Protein 5.7 L, Albumin 2.8 L, Globulin 2.9, Albumin/Globulin Ratio 1.0 L I & O for Last 24 hours: Intake & Output 04/21/22 04/22/22 04/23/22 04/24/22 23:59 23:59 23:59 23:59 Intake Total 1188 / 1188 2701 / 3701 1480 / 1480 Output Total 0 / 0 Balance 1187 / 1187 2701 / 3701 1480 / 1480 Weight 53.24 kg 54.068 kg 57.334 kg Constitutional Constitutional: no acute distress *Routine HEENT Exam Head: Present normocephalic Eye: Present EOMI and PERRL ENT: Present mucous membranes moist *Routine Neck Exam Neck: Present supple; Absent lymphadenopathy *Routine Respiratory Exam Respiratory: Present rhonchi, wheezes, normal respiratory effort and symmetric chest movement *Routine Cardiovascular Exam Cardiovascular: Present RRR *Routine Abdominal Exam Abdominal: Present soft and normoactive bowel sounds; Absent tenderness *Routine Extremities Exam Extremities: Present full ROM, pulses intact and normal capillary refill; Absent cyanosis, clubbing or edema *Routine Skin Exam Skin: Present warm; Absent rash *Routine Neurological Exam Neurological: Present alert, oriented X3, moving all extremities, vision grossly intact, hearing grossly intact and normal speech; Absent sensory deficit or motor deficit Routine Psychiatric Exam Psychiatric: Present normal affect, normal thought process, cooperative, good insight and good judgment Assessment and Plan *Assessment and plan (1) Obstructive pneumonia: Status: Acute Category: Medical Code(s): J18.9 - Pneumonia, unspecified organism (2) Acute and chronic respiratory failure with hypoxia: Status: Acute Category: Medical Code(s): J96.21 - Acute and chronic respiratory failure with hypoxia (3) Lung mass: Status: Acute Category: Medical Code(s): R91.8 - Other nonspecific abnormal finding of lung field (4) Multiple lung nodules on CT: Status: Chronic Category: Medical Code(s): R91.8 - Other nonspecific abnormal finding of lung field (5) Transaminitis: Status: Acute Category: Medical Code(
--- NOTE | 2022-04-24 08:50 | PC.NURSE ---
tech note; notified nurse of heart rate for 0800 vital signs.
[2022-04-24 09:38] LABS: Vancomycin,Peak 20.3 ug/ml (11-39)
[2022-04-24 10:14] LABS: Anisocytosis 1+; Hypochromasia 1+; Lymphocytes % 4 % (10-50); Monocytes % 2 % (2-9); Neutrophils % 94 % (42-76); Platelet Estimate Marked Increase; Total Cells Counted 100
--- NOTE | 2022-04-24 13:31 | PC.NURSE ---
tech note; notified nurse of high blood pressure for 1200 vital signs
--- NOTE | 2022-04-24 14:22 | EXP.PHA.CONS ---
Pharmacy Consult Date: 04/24/22 Time: 14:23 Referring provider: DR. JOHNSON Reason for Consult:: VANCOMYCIN LEVELS Allergies Allergy/AdvReac Type Severity Reaction Status Date / Time lamotrigine [From LAMICTAL] Allergy Unknown Verified 04/22/22 10:08 Home Medications Medication Instructions Recorded Confirmed Type albuterol sulfate 90 mcg/actuation 2 inh inhalation Q6H PRN shortness 10/30/21 04/22/22 Rx aerosol inhaler of breath or wheezing 90 days #8.5 grams atorvastatin 20 mg tablet 20 mg PO HS Cholesterol 02/26/22 04/22/22 History fluticasone fur. 100 mcg-umeclid 1 inh inhalation DAILY Breathing 02/26/22 04/22/22 History 62.5 mcg-vilant 25 mcg problems inhalat.powder (Trelegy Ellipta) trazodone 150 mg tablet 150 mg PO HS Insomnia 02/26/22 04/22/22 History aspirin 81 mg tablet 81 mg PO DAILY Heart disease 03/11/22 04/22/22 History bisoprolol 5 1 tab PO DAILY High blood pressure 03/11/22 04/22/22 History mg-hydrochlorothiazide 6.25 mg tablet cholecalciferol (vitamin D3) 25 1,000 unit PO DAILY Supplement 03/22/22 04/22/22 History mcg (1,000 unit) tablet quetiapine 200 mg tablet 200 mg PO HS Insomnia 03/22/22 04/22/22 History clonazepam 0.5 mg tablet 0.5 mg PO BID Anxiety #60 tabs 04/16/22 04/22/22 Rx amoxicillin 500 mg-potassium 1 tab PO Q8H Infection 04/22/22 04/22/22 History clavulanate 125 mg tablet (Augmentin) hydrocodone 10 mg-acetaminophen 1 tab PO QIDP PRN Pain 04/22/22 04/22/22 History 325 mg tablet pantoprazole 40 mg tablet,delayed 40 mg PO DAILY acid reflux 04/22/22 04/22/22 History release New Prescriptions to Start Prescriptions: Height: 1.55 m Weight: 61.802 kg Laboratory Results:: Laboratory Results - last 24 hr 04/24/22 03:30: Vancomycin Trough 8.3 04/24/22 07:03: Vancomycin Peak 20.3 04/24/22 07:03: WBC 20.9 H*, RBC 2.79 L, Hgb 8.7 L, Hct 27.0 L, MCV 96.8, MCH 31.1, MCHC 32.1, RDW 13.4, Plt Count 713 H, MPV 8.0, Neut % (Auto) 92.3 H, Lymph % (Auto) 4.6 L, [place] % (Auto) 2.6, Eos % (Auto) 0.4, Baso % (Auto) 0.1, Neut # (Auto) 19.3 H, Lymph # (Auto) 1.0, [place] # (Auto) 0.6, Eos # (Auto) 0.1, Baso # (Auto) 0.0, Total Counted 100, Neutrophils % (Manual) 94 H, Lymphocytes % (Manual) 4 L, Monocytes % (Manual) 2, Platelet Estimate Marked increase, Hypochromasia 1+, Anisocytosis 1+ 04/24/22 07:03: Sodium 138, Potassium 3.7, Chloride 102, Carbon Dioxide 35 H, Anion Gap 4.7 L, BUN 13 D, Creatinine 0.40 L D, Estimated Creat Clear 52, Estimated GFR 161, Est GFR ( Amer) 195 D, Glucose 181 H, Calcium 7.7 L, Total Bilirubin 0.3, AST 74 H D, ALT 70, Alkaline Phosphatase 222 H, Total Protein 5.7 L, Albumin 2.8 L, Globulin 2.9, Albumin/Globulin Ratio 1.0 L Medical History: Medical History Anemia Chronic hypoxemic respiratory failure COPD (chronic obstructive pulmonary disease) HTN (hypertension) Lesion of liver Lung mass Lung mass Multiple lung nodules on CT Multiple pulmonary nodules Nocturnal hypoxemia Scoliosis Stopped smoking with greater than 30 pack year history Assessment and Plan Assessment and plan all Dx Assessment and Plan for all problems:: PATIENT'S VANCOMYCIN PEAK AND TROUGH LEVELS WERE 20.3 MCG/ML AND 8.3 MCG/ML, RESPECTIVELY. RECOMMEND INCREASING DOSE OF VANCOMYCIN TO 1250 MG Q12H AT THIS TIME.
--- NOTE | 2022-04-24 16:26 | PC.NURSE ---
tech note; notified nurse of high blood pressure for 1600 vital signs.
--- NOTE | 2022-04-24 17:22 | PC.NURSE ---
tech note; notified nurse of high blood pressure when retaken at 1715.
[2022-04-24 23:23] LABS: MRSA DNA PCR NEGATIVE
[2022-04-24 23:25] LABS: Hep A Ab, IgM NEGATIVE; Hepatitis B Core Antibody IgM NEGATIVE; Hepatitis B Surface Antigen NEGATIVE; Hepatitis C Antibody NON REACTIVE
[2022-04-25 01:04] VITALS: PULSE 84; PULSE 97
[2022-04-25 04:00] VITALS: BP 145/77; PULSE 92; RESP 16; TEMP 36.7; O2SAT 96; BMI 23.7
--- NOTE | 2022-04-25 05:17 | PC.NURSE ---
PATIENT REQUIRES NARCOTICS Q 4 HRS FOR BACK PAIN. NORCO AND MORPHINE BENEFICIAL. BREATH SOUNDS DIMINISHED WITH SCANT EXPIRATORY WHEEZES. 02 SAT 98 % ON 3LNC. PERFORMS 750-1000 ON INCENTIVE SPIROMETER.
[2022-04-25 06:40] VITALS: PULSE 99; RESP 16; O2SAT 98
[2022-04-25 07:46] VITALS: BP 136/93; PULSE 125; RESP 20; TEMP 36.5; O2SAT 98
[2022-04-25 08:06] LABS: Basophils # 0.1 K/mm3 (0-0.2); Basophils % 0.3 % (0.1-2.0); Eosinophils # 0.2 K/mm3 (0.0-0.4); Eosinophils % 1.1 % (0.1-12.0); Hematocrit 29.9 % (37.0-47.0); Hemoglobin 9.4 g/dL (12.2-16.2); Lymphocytes # 2.3 K/mm3 (0.7-4.5); Lymphocytes % 12.4 % (10-50); Mean Corpuscular HGB Conc 31.5 g/dL (31.8-35.4); Mean Corpuscular Hemoglobin 30.6 pg (27.0-31.2); Mean Corpuscular Volume 97.2 fl (81-99); Mean Platelet Volume 7.5 fl (7.4-10.4); Monocytes # 1.1 K/mm3 (0.1-1.0); Monocytes % 6.1 % (1.7-9.3); Neutrophils # 14.8 K/mm3 (1.8-7.8); Neutrophils % 80.1 % (37.0-80.0); Platelet Count 738 K/mm3 (142-424); Red Blood Count 3.07 M/mm3 (4.20-5.40); Red Cell Distribution Width 13.5 % (11.5-17.5); White Blood Count 18.5 K/mm3 (4.8-10.8)
[2022-04-25 08:10] LABS: MANUAL DIFFERENTIAL MANUAL DIFFERENTIAL (MANUAL DIFF)
--- NOTE | 2022-04-25 09:27 | EXP.DC.SUM ---
General Admission date:: 04/22/22 Discharge date: 04/25/22 HPI HPI HPI: This is a 62-year-old female that presents to [facility] emergency department at the request of her transportation sales consultant for shortness of air. The patient presented to her transportation sales consultant office and was identified with low O2 sats and acute dyspnea and sent to the ED for evaluation. She reports that she has not felt well since February 2022. She has identified daily shortness of air made worse with exertional activity. Her past medical history significant for pulmonary nodules, COPD, hypertension and colon polyps. She reports routine use of her inhaler therapy with no relief of symptomatology. She denies associated retrosternal chest pain, palpitations, confusion or hallucinations. She describes a significant smoking history of greater than 1 pack/day for 44 years and quit in 2019. Her most recent PFTs in 2021 identified FEV1 43%. Recent chest imaging identified concerns with lung mass and metastases. She describes a hospital admission toward the end of February and reports that she is still continued to feel badly. In the ED her presenting room air sat was 80%. She was tachypneic and tachycardic with leukocytoses and elevated procalcitonin. CTA of the chest is pending at the time of admission. Hospital Course Hospital Course Hospital Course: The patient was admitted to the medical floor with telemetry and pulse oximetry monitoring. Blood cultures were acquired and she was started on broad-spectrum IV antibiotic therapy. Her laboratory studies and inflammatory markers were trended. CT of the chest was concerning for lung mass. Pulmonology was consulted. She underwent bronchoscopy on April 23, 2022 with transbronchial biopsies and pathology pending. She was provided supplemental oxygen and her oxygen saturations improved and she maintained appropriate oxygen saturations on her typical home oxygen requirement of 3 L via nasal cannula. Her blood cultures remain no growth to date and bronchoscopy cultures are pending. She tolerated her IV antibiotic therapy with no adverse events and identified improvement. She inquired about discharge home. Her CBC identified and improved but not resolved leukocytoses from admission. She was adamant on discharge home to follow-up with her transportation sales consultant. She will be discharged home with a course of Levaquin, trilogy inhalation therapy and DuoNeb nebulizer therapy. An appointment has been made with her transportation sales consultant for April 29. I have recommended she follow-up with her PCP as well. Exam Data for Last 24 hours Vital signs and Labs for Last 24 Hours: Temp Pulse Resp BP Pulse Ox FiO2 97.7 F 125 H 20 136/93 H 98 28 04/25/22 07:46 04/25/22 07:46 04/25/22 07:46 04/25/22 07:46 04/25/22 07:46 04/24/22 19:59 Laboratory Results - last 24 hr 04/22/22 11:20: Hepatitis A IgM Ab Negative, Hep Bs Antigen Negative, Hep B Core IgM Ab Negative, Hepatitis C Antibody Non reactive 04/22/22 18:46: MRSA (PCR) Negative 04/24/22 07:03: Vancomycin Peak 20.3 04/24/22 07:03: Total Counted 100, Neutrophils % (Manual) 94 H, Lymphocytes % (Manual) 4 L, Monocytes % (Manual) 2, Platelet Estimate Marked increase, Hypochromasia 1+, Anisocytosis 1+ 04/25/22 07:43: WBC 18.5 H, RBC 3.07 L, Hgb 9.4 L, Hct 29.9 L, MCV 97.2, MCH 30.6, MCHC 31.5 L, RDW 13.5, Plt Count 738 H, MPV 7.5, Neut % (Auto) 80.1 H, Lymph % (Auto) 12.4, [place] % (Auto) 6.1, Eos % (Auto) 1.1, Baso % (Auto) 0.3, Neut # (Auto) 14.8 H, Lymph # (Auto) 2.3, [place] # (Auto) 1.1 H, Eos # (Auto) 0.2, Baso # (Auto) 0.1 I & O for Last 24 hours: Intake & Output 04/22/22 04/23/22 04/24/22 04/25/22 23:59 23:59 23:59 23:59 Intake Total 1188 / 1188 2700 Output Total 1 / 0 / 0 0 / 0 0 / 0 Balance 1187 / 1187 2700 [id number] Weight 53.24 kg 54.068 kg 61.802 kg 57.017 kg Microbiology Reports for the Last 24 Hours: Microbiology
[2022-04-25 10:04] LABS: Eosinophils % 2 % (0-3); Lymphocytes % 22 % (10-50); Monocytes % 7 % (2-9); Neutrophils % 69 % (42-76); Total Cells Counted 100
[2022-04-25 10:05] LABS: Platelet Estimate Marked Increase; RBC Morphology Normal
--- NOTE | 2022-04-26 14:17 | CARE MANAGER ---
Called to discuss recent discharge. Was able to pick up operator medication and is aware of f/u appt.
[2022-04-26 20:06] LABS: Body Fluid Culture, Sterile Not indicated. (.); Organism ID Not indicated. (.); Specimen Source Urine (.); Streptococcus pneumoniae Ag Negative (Negative)
[2022-04-27 09:01] LABS: Legionella pneumophila Urinary Negative (Negative)
[2022-04-28 08:15] LABS: Fungitell(Beta D-Glucan) Serum 135 pg/mL (<80)
== END 2022-04-25 11:16 | disposition home or self-care (01) | DRG 166 ==
LOC: ER 13:49 → 2ND 14:02
PROVIDERS: Internal Medicine Pulmonary Disease; Admitting Provider Family Medicine; Emergency Provider Emergency Medicine; PCP Emergency Medicine; Visit Provider Family Medicine
PROC: 0BBG8ZX Excision of Left Upper Lung Lobe, Via Natural or Artificial Opening Endoscopic, Diagnostic (ICD-10-PCS; principal; 2022-04-23 08:00)
DX: J18.1 Lobar pneumonia, unspecified organism (principal); J96.21 Acute and chronic respiratory failure with hypoxia; J44.0 Chronic obstructive pulmonary disease with (acute) lower respiratory infection; Z87.891 Personal history of nicotine dependence; E87.6 Hypokalemia; R91.8 Other nonspecific abnormal finding of lung field; D64.9 Anemia, unspecified; I10 Essential (primary) hypertension
CPT/HCPCS: 31624; 31652; 31628; 36415; 71045; 71275; 76000; 76705; 80053; 80074; 80202; 82607; 82728; 82803; 83540; 83550; 83605; 83615; 83735; 83880; 84145; 84484; 85007; 85025; 85610; 86140; 87040; 87070; 87077; 87102; 87116; 87186; 87205; 87206; 87220; 87449; 87641; 87899; 88112; 88173; 88305; 88312; 89051; 93005; 94640; 99285; C9803; J0456; J0696; J2405; J2543; J2710; J3370; Q9967; U0003; U0005

== ENCOUNTER → 2022-04-29 14:15 | Outpatient (CLI) | payer MEDICARE, MEDICAID, SELFPAY ==
[2022-04-29 15:18] LABS: Basophils % 0.5 % (0.1-2.0); Eosinophils # 0.2 K/mm3 (0.0-0.4); Eosinophils % 2.2 % (0.1-12.0); Hematocrit 30.8 % (37.0-47.0); Hemoglobin 9.8 g/dL (12.2-16.2); Lymphocytes # 2.3 K/mm3 (0.7-4.5); Lymphocytes % 27.5 % (10-50); Mean Corpuscular HGB Conc 31.8 g/dL (31.8-35.4); Mean Corpuscular Hemoglobin 30.8 pg (27.0-31.2); Mean Corpuscular Volume 96.9 fl (81-99); Mean Platelet Volume 7.8 fl (7.4-10.4); Monocytes # 1.1 K/mm3 (0.1-1.0); Monocytes % 12.5 % (1.7-9.3); Neutrophils # 4.8 K/mm3 (1.8-7.8); Neutrophils % 57.3 % (37.0-80.0); Platelet Count 701 K/mm3 (142-424); Red Blood Count 3.18 M/mm3 (4.20-5.40); Red Cell Distribution Width 13.7 % (11.5-17.5); White Blood Count 8.4 K/mm3 (4.8-10.8)
[2022-05-03 16:14] LABS: Histoplasma Gal'mannan Ag Ur <0.5 (<0.5 ng/mL)
[2022-05-05 18:09] LABS: Aspergillus flavus Negative (Neg:<1:1); Aspergillus fumigatus Negative (Neg:<1:1); Aspergillus niger Negative (Neg:<1:1); Blastomyces Antibody Negative (Neg:<1:1)
[2022-05-05 19:34] LABS: M003-IgE Aspergillus fumigatus <0.10 kU/L (Class 0)
== END ==
PROVIDERS: PCP Emergency Medicine; Visit Provider Internal Medicine Pulmonary Disease
DX: J84.10 Pulmonary fibrosis, unspecified (principal); J45.909 Unspecified asthma, uncomplicated
CPT/HCPCS: 36415; 85025; 86003; 86606; 86612; 87385

== ENCOUNTER → 2022-05-08 10:24 | Outpatient (CLI) | payer MEDICARE, MEDICAID, SELFPAY ==
[2022-05-08 11:24] LABS: INR 1.04 (0.9-1.1); Prothrombin Time 11.2 seconds (10.1-12.5)
== END ==
PROVIDERS: PCP Emergency Medicine; Visit Provider Internal Medicine Pulmonary Disease
DX: R91.8 Other nonspecific abnormal finding of lung field (principal); Z01.812 Encounter for preprocedural laboratory examination; Z51.81 Encounter for therapeutic drug level monitoring
CPT/HCPCS: 36415; 85610

== ENCOUNTER → 2022-05-10 06:59 | Outpatient (CLI) | payer MEDICARE, MEDICAID, SELFPAY ==
[2022-05-10 07:30] VITALS: BMI 22.1
--- NOTE | 2022-05-10 08:26 | PC.NURSE ---
Upon checking in pt discovered she ate full breakfast at 4am. States she was instructed per scheduling she could eat up to 3 hours prior to procedure. Spoke with Kanwal and radiology department. Procedure to be cancelled today and rescheduled. Notified Michelle in Dr Coffman's office. Spoke to Yazmin in scheduling who verified that their instruction did in fact state that patients could eat up to 3 hours prior to procedure. Spoke with Diana in radiology and asked her to follow up with scheduling to have it changed to NPO after midnight. Apologized to patient and notified her that she would be contacted to have procedure rescheduled.
== END ==
PROVIDERS: PCP Emergency Medicine; Visit Provider Internal Medicine Pulmonary Disease
DX: R06.09 Other forms of dyspnea (principal); R91.1 Solitary pulmonary nodule

== ENCOUNTER → 2022-05-14 10:24 | Outpatient (CLI) | payer MEDICARE, MEDICAID, SELFPAY ==
--- NOTE | 2022-05-14 10:29 | XR_ITS ---
FINAL REPORT CLINICAL HISTORY: Hypoxia COMPARISON: 04/23/2022 FINDINGS: 2 views of the chest were obtained . The heart is mildly enlarged. The mediastinum is within normal limits. Patchy airspace opacity in the left upper lobe has increased from prior exam. Previously seen perihilar opacity has improved. There is no pneumothorax. Osseous structures demonstrate 45 degrees of thoracolumbar scoliosis convex to the left. IMPRESSION: Worsening left upper lobe airspace opacity. Reviewed, Interpreted and Dictated by Miguel Harden MD Transcribed by Maria L Hdez Authenticated and [facility]
== END ==
PROVIDERS: PCP Emergency Medicine; Visit Provider Internal Medicine Pulmonary Disease
DX: R06.02 Shortness of breath (principal)
CPT/HCPCS: 71046

== ENCOUNTER → 2022-05-15 10:47 | Outpatient (CLI) | payer MEDICARE, MEDICAID, SELFPAY | PROVIDERS: PCP Emergency Medicine; Visit Provider Internal Medicine Pulmonary Disease | DX: J18.9 Pneumonia, unspecified organism (principal) | CPT/HCPCS: 87070; 87205; 87220 ==

== ENCOUNTER 2022-05-17 06:58 | Outpatient (CLI) | payer MEDICARE, MEDICAID, SELFPAY ==
[2022-05-17] VITALS (11 sets, daily range): BP systolic 90–120; BP diastolic 50–63; PULSE 79–85; RESP 16–18; TEMP 37.1; O2SAT 94–98; BMI 22.1
--- NOTE | 2022-05-17 06:58 | CT_ITS ---
FINAL REPORT CLINICAL HISTORY: . MILLIE LUNG BIOPSY FINDINGS: CT GUIDEDLUNG CORE BIOPSY. HISTORY: . Left upper lobe mass. ATTENDING PHYSICIAN: Dr. Urban PHYSICIAN COUNTY JUDGE: Jonatan Patel PA-C PROCEDURE: After informed consent was obtained and a timeout was performed, the patient was prepped and draped in usual sterile fashion over the lateral left chest. Utilizing local anesthesia and sterile technique with a coaxial system, access to lesion was obtained. A total of 5 separate 20-gauge core biopsies were obtained. Sample was sent for preordered cultures. Post biopsy films demonstrate no evidence of acute complication. Procedural sedation was provided by anesthesia. The patient tolerated the procedure well and left the department in good condition. IMPRESSION: Status post CT guided core biopsy of left upper lobe mass without immediate complication. Films reviewed , interpreted and dictated by Dr. Ruth Urban. Transcribed by Jonatan Patel PA-C. Reviewed, Interpreted and Dictated by Ruth Urban MD Transcribed by HELDER Garcia Authenticated and [facility]
--- NOTE | 2022-05-17 09:05 | XR_ITS ---
FINAL REPORT TECHNIQUE: Single view chest CLINICAL HISTORY: POST BIOPSY COMPARISON: 05/14/2022 FINDINGS: A single view of the chest was obtained. The heart and mediastinum are within normal limits. There is been interval worsening in left upper lobe opacity which could be related to post biopsy hemorrhage. Right infrahilar opacity is likely stable. There is no pneumothorax. Osseous structures are unremarkable. IMPRESSION: Worsening left upper lobe opacity, underlying mass not excluded. No pneumothorax. Reviewed, Interpreted and Dictated by Ruth Urban MD Transcribed by Maria L Hdez Authenticated and [facility]
--- NOTE | 2022-05-17 11:00 | XR_ITS ---
FINAL REPORT CLINICAL HISTORY: 2 HOUR POSR BX FINDINGS: A portable view of the chest was obtained. Comparison is made to a prior exam dated 05/17/2022, 2 hours prior. Cardiac and mediastinal silhouettes are within normal limits. There has been no change in a left upper lobe opacity. There is no pleural effusion or pneumothorax. IMPRESSION: No change in left upper lobe opacity. No pneumothorax. Reviewed, Interpreted and Dictated by Ruth Urban MD Transcribed by Neena Lynch Authenticated and [facility]
== END 2022-05-17 11:55 | disposition home or self-care (01) ==
PROVIDERS: PCP Emergency Medicine; Visit Provider Internal Medicine Pulmonary Disease
DX: R91.1 Solitary pulmonary nodule (principal)
CPT/HCPCS: 32408; 71045; 77012; 87102; 87116; 87186; 87206; 88305; 88312; 88333

== ENCOUNTER → 2022-05-24 18:13 | Outpatient (CLI) | payer MEDICARE, MEDICAID, SELFPAY ==
[2022-05-24 19:16] LABS: Amphetamine/Metha Screen,Urine Negative ng/ml (<1000); Barbiturates Screen,Urine Negative ng/ml (<200)
[2022-05-24 19:17] LABS: Benzodiazepines Screen,Urine Negative ng/ml (<200); Cannabinoid Screen,Urine Negative ng/ml (<50)
[2022-05-24 19:18] LABS: Cocaine Screen,Urine Negative ng/ml (<300)
[2022-05-24 19:19] LABS: Methadone Screen,Urine Negative ng/ml (<300); Opiate Screen,Urine Positive ng/ml (<300)
[2022-05-24 19:20] LABS: Phencyclidine Screen,Urine Negative ng/ml (<25)
== END ==
PROVIDERS: PCP Emergency Medicine; Visit Provider Emergency Medicine
DX: Z79.899 Other long term (current) drug therapy (principal)
CPT/HCPCS: 80305

== ENCOUNTER 2022-05-31 09:49 | Outpatient (RCR) | payer MEDICARE, MEDICAID, SELFPAY | END 2022-07-02 12:00 | disposition home or self-care (01) | LOC: PT 09:49 | PROVIDERS: Visit Provider Internal Medicine Pulmonary Disease | DX: J44.9 Chronic obstructive pulmonary disease, unspecified (principal) | CPT/HCPCS: 94626 ==

== ENCOUNTER → 2022-06-18 10:42 | Outpatient (CLI) | payer MEDICARE, MEDICAID, SELFPAY ==
--- NOTE | 2022-06-18 10:50 | XR_ITS ---
FINAL REPORT CLINICAL HISTORY: PNM COMPARISON: 05/17/2022 FINDINGS: Two views of the chest were obtained. The heart size and pulmonary vascularity are within normal limits. The mediastinum is normal. There is left upper lobe atelectasis. There is partially improved aeration. There is stable right base atelectasis or scarring. There is no pneumothorax. There is dextroscoliosis. IMPRESSION: Partially improved aeration with left upper lobe and right base atelectasis. Reviewed, Interpreted and Dictated by Bennie Mann III, MD Transcribed by Liss Herring Authenticated and [facility]
[2022-06-18 11:32] LABS: Basophils % 0.2 % (0.1-2.0); Eosinophils % 0.4 % (0.1-12.0); Hematocrit 41.4 % (37.0-47.0); Hemoglobin 12.8 g/dL (12.2-16.2); Lymphocytes # 0.5 K/mm3 (0.7-4.5); Lymphocytes % 7.1 % (10-50); Mean Corpuscular HGB Conc 30.9 g/dL (31.8-35.4); Mean Corpuscular Volume 93.8 fl (81-99); Mean Platelet Volume 7.1 fl (7.4-10.4); Monocytes # 0.1 K/mm3 (0.1-1.0); Monocytes % 1.3 % (1.7-9.3); Neutrophils # 6.1 K/mm3 (1.8-7.8); Platelet Count 337 K/mm3 (142-424); Red Blood Count 4.41 M/mm3 (4.20-5.40); Red Cell Distribution Width 16.3 % (11.5-17.5); White Blood Count 6.7 K/mm3 (4.8-10.8)
[2022-06-18 11:33] LABS: MANUAL DIFFERENTIAL MANUAL DIFFERENTIAL (MANUAL DIFF)
[2022-06-18 11:51] LABS: Alanine Aminotransferase 31 U/L (12-78); Albumin Level 4.9 g/dl (3.5-5.0); Albumin/Globulin Ratio 1.8 (1.1-1.8); Alkaline Phosphatase 74 U/L (38-126); Anion Gap 18.3 mEq/L (5-15); Aspartate Amino Transferase 30 U/L (14-36); Bilirubin,Total 0.6 mg/dl (0.2-1.3); Blood Urea Nitrogen 18 mg/dl (7-17); Calcium 9.9 mg/dl (8.4-10.2); Carbon Dioxide 29 mmol/L (22.0-30.0); Chloride 94 mmol/L (98-107); Estimated Glomerular Filt Rate 101 ml/min (>60); GFR (African American) 122 ML/MIN (>60); Globulin 2.7 g/dL (1.3-3.2); Glucose 147 mg/dl (74-100); Potassium 4.3 mmoL/L (3.5-5.1); Sodium 137 mmol/L (136-145); Total Protein,Serum 7.6 g/dl (6.3-8.2)
[2022-06-18 12:33] LABS: C-Reactive Protein 4.5 mg/L (0-4)
[2022-06-18 14:27] LABS: Lymphocytes % 9 % (10-50); Monocytes % 1 % (2-9); Neutrophils % 90 % (42-76); Nucleated Red Blood Cells 1; Total Cells Counted 100
[2022-06-18 14:29] LABS: Hypochromasia 1+; Platelet Estimate Normal
== END ==
PROVIDERS: PCP Emergency Medicine; Visit Provider Internal Medicine Pulmonary Disease
DX: R06.02 Shortness of breath (principal); J84.9 Interstitial pulmonary disease, unspecified; J45.909 Unspecified asthma, uncomplicated; R06.09 Other forms of dyspnea
CPT/HCPCS: 36415; 71046; 80053; 85007; 85025; 86140

== ENCOUNTER → 2022-06-24 13:05 | Outpatient (CLI) | payer MEDICARE, MEDICAID, SELFPAY ==
--- NOTE | 2022-06-24 13:19 | CT_ITS ---
FINAL REPORT TECHNIQUE: Pre-and postcontrast axial CT images of the abdomen and pelvis were obtained. Oral contrast was given. Coronal reformatted images were also obtained and reviewed. This study was performed with techniques to keep radiation doses as low as reasonably achievable (ALARA). Individualized dose reduction techniques using automated exposure control or adjustment of mA and/or kV according to the patient's size were employed. CLINICAL HISTORY: abd pain, bulging area in left lower abd COMPARISON: 04/09/2022 FINDINGS: The lung bases are clear. The previously noted nodules are no longer seen. There is dense vascular calcification of the abdominal aorta. The liver parenchyma is homogeneous. The gallbladder is present. The spleen is unremarkable. The adrenals are normal. The pancreas is unremarkable. The kidneys enhance appropriately. Precontrast images demonstrate no nephrolithiasis. The appendix is normal. The cecum is low lying. The uterus is present and lies eccentric to the left. The urinary bladder is normal. There is no evidence of free fluid or adenopathy. IMPRESSION: Low lying cecum. Reviewed, Interpreted and Dictated by Miguel Harden MD Transcribed by Rachel Andesron Authenticated and [facility]
[2022-06-24 13:29] LABS: Blood Urea Nitrogen 15 mg/dl (7-17); Estimated Glomerular Filt Rate 101 ml/min (>60); GFR (African American) 122 ML/MIN (>60)
== END ==
PROVIDERS: PCP Nurse Practitioner Family; Visit Provider Nurse Practitioner Family
DX: M25.559 Pain in unspecified hip (principal); R10.9 Unspecified abdominal pain
CPT/HCPCS: 36415; 74178; 82565; 84520; Q9967

== ENCOUNTER → 2022-07-21 15:20 | Outpatient (CLI) | payer MEDICARE, MEDICAID, SELFPAY ==
--- NOTE | 2022-07-21 15:20 | CT_ITS ---
FINAL REPORT TECHNIQUE: Axial images were obtained through the chest without contrast. This study was performed with techniques to keep radiation doses as low as reasonably achievable (ALARA). Individualized dose reduction techniques using automated exposure control or adjustment of mA and/or kV according to the patient's size were employed. CLINICAL HISTORY: Nodules COMPARISON: 04/22/2022 FINDINGS: There is an abnormal noncalcified masslike opacity in the medial left upper lobe measuring 3.6 x 3.0 cm contiguous with the superior mediastinum. The left hilum is superiorly retracted. There is scarring in the left upper lobe. This masslike opacity is smaller than prior. The localized airspace opacity previously noted inferior to the masslike opacity has resolved. There are mild changes of centrilobular emphysema. The multiple smaller masslike densities in the left lower lobe are not seen on today's exam. IMPRESSION: Masslike opacity in the medial left upper lobe measuring 3.6 x 3.0 cm has decreased in size, may be post inflammatory or neoplastic. PET scan could further evaluate. Interval resolution of multiple noncalcified opacities in the more inferior left lung, presumably inflammatory in nature. Reviewed, Interpreted and Dictated by Miguel Harden MD Transcribed by Rachel Anderson Authenticated and [facility]
== END ==
PROVIDERS: PCP Nurse Practitioner Family; Visit Provider Internal Medicine Pulmonary Disease
DX: R91.8 Other nonspecific abnormal finding of lung field (principal)
CPT/HCPCS: 71250

== ENCOUNTER → 2022-09-02 10:38 | Outpatient (CLI) | payer MEDICARE, MEDICAID, SELFPAY ==
--- NOTE | 2022-09-02 10:43 | XR_ITS ---
FINAL REPORT CLINICAL HISTORY: PNM COMPARISON: 06/18/2022 FINDINGS: TWO VIEW CHEST The heart size is normal. The mediastinum is normal. There are stable pulmonary opacities which favor scarring. No new abnormality is seen. There is no pneumothorax. There is dextroscoliosis of the thoracic spine. IMPRESSION: Stable pulmonary opacities which favor scarring. Reviewed, Interpreted and Dictated by Bennie Mann III, MD Transcribed by Mya Null Authenticated and [facility]
== END ==
PROVIDERS: PCP Emergency Medicine; Visit Provider Internal Medicine Pulmonary Disease
DX: R06.02 Shortness of breath (principal)
CPT/HCPCS: 71046

== ENCOUNTER → 2022-09-15 16:42 | Outpatient (CLI) | payer MEDICARE, MEDICAID, SELFPAY ==
[2022-09-15 13:44] LABS: Amphetamine/Metha Screen,Urine Negative ng/ml (<1000)
[2022-09-15 13:45] LABS: Barbiturates Screen,Urine Negative ng/ml (<200); Benzodiazepines Screen,Urine Negative ng/ml (<200)
[2022-09-15 13:46] LABS: Cannabinoid Screen,Urine Negative ng/ml (<50)
[2022-09-15 13:47] LABS: Cocaine Screen,Urine Negative ng/ml (<300); Methadone Screen,Urine Negative ng/ml (<300)
[2022-09-15 13:48] LABS: Opiate Screen,Urine Positive ng/ml (<300)
[2022-09-15 13:49] LABS: Phencyclidine Screen,Urine Negative ng/ml (<25)
== END ==
LOC: LAB.DROPOF 16:43
PROVIDERS: PCP Emergency Medicine; Visit Provider Emergency Medicine
DX: Z79.899 Other long term (current) drug therapy (principal)
CPT/HCPCS: 80305

== ENCOUNTER 2022-10-15 06:27 | Day surgery (SDC) | payer MEDICARE, MEDICAID, SELFPAY ==
[2022-10-12 17:05] VITALS: BMI 21.7
[2022-10-15 06:58] VITALS: BP 124/70; PULSE 86; RESP 18; TEMP 36.4; O2SAT 98
--- NOTE | 2022-10-15 07:06 | P.PNANES_ITS ---
[facility] Disclaimer: The information contained in this section may have been updated after the patient was seen, as this information can be updated by other users. Medical History Abnormal computerized axial tomography of chest Anemia Chest pain Chronic hypoxemic respiratory failure COPD (chronic obstructive pulmonary disease) Dyspnea on exertion Fungal pneumonia HTN (hypertension) Immunosuppression Lung mass Multiple lung nodules on CT Multiple pulmonary nodules Nocturnal hypoxemia Organizing pneumonia Pulmonary histoplasmosis Scoliosis Stopped smoking with greater than 30 pack year history Surgical History Cataracts, bilateral History of bronchoscopy History of colonoscopy History of tonsillectomy Family History Mother Hypertension Father Alcoholism Social History Smoking Status: Former smoker pack-years: 40 second hand exposure: Yes alcohol intake: never substance use type: denies use current occupational status: unemployed and disabled Travel in the last 8 weeks: None household members: none housing: house current occupational exposures/hazards: No caffeine: Yes [facility] Anesthesia Checklist Patient Identification Patient Identification: Arm Band and Verbal (Name & ) Structural Data Admitted From: Home Planned Operative Procedure/s: Colonoscopy Consent for Planned Operative Procedure(s) Verified: Yes NPO Status Verified Time NPO: 00:00 Additional verifications Anesthesia Reactions: No Hx Blood Transfusions: No Blood Transfusion Reaction: Yes Airway Assessment Mallampati Score:: Class III C-Spine Mobility Assessed: Yes TMJ Mobility Assessed: Yes Dentition: Partials Neurological Assessment Level of Consciousness: Awake Hx Seizures: No Numbness or tingling in extremities: No Anesthesia Plan Anesthesia Risk discussed: Yes Anesthesia Plan: Verified ASA Class: III Anesthesia Type: MAC
[2022-10-15 07:16] VITALS: O2SAT 93
[2022-10-15 07:47] VITALS: BP 85/56; PULSE 53; RESP 18; TEMP 36.1; O2SAT 89
--- NOTE | 2022-10-15 07:47 | P.PCN_ITS ---
Procedure: Date: 10/15/22 Patient Date of :: 1960 Procedure Performed:: Total colonoscopy to terminal ileum with polypectomy using biopsy forceps Indications:: Patient is a 62-year-old female. She has a prior history of of Cologuard positivity. I had performed colonoscopy on her April 2019 at which time she was found to have 20 polyps and at least 15 of these were adenomatous with a 20 mm tubulovillous adenoma. She had a follow-up colonoscopy 02/05/2020 which revealed a couple of tubular adenomas and a serrated adenoma. I performed colonoscopy 09/18/2021. She had numerous tubular adenomas, approximately 6, and a descending colon tubulovillous adenoma. Repeat colonoscopy was recommended for 1 year. Performing Provider:: Bennie Evans MD Referring Provider:: Lincoln Low Sedation:: MAC sedation Procedure:: Patient history was obtained and appropriate physical examination was performed. Patient's medications and allergies were reviewed. Informed consent was obtained after explaining the benefits, alternatives, and risks of the procedure including, but not limited to, bleeding, perforation, missed lesions, and adverse reaction to anesthesia medications. Patient was transported to endoscopy procedure room. Patient was connected to monitoring devices. Throughout the procedure the patient's blood pressure, pulse, and oxygen saturations were monitored continuously. Patient ident ification and planned procedure were verified by the staff. Patient was positioned in lateral decubitus position. Digital anorectal exam was performed. Variable stiffness Olympus colonoscope was inserted and advanced under direct visualization to the cecum. Adequacy of the colonic preparation was noted. The colonoscope was advanced a short distance into the terminal ileum. The colonoscope was then slowly withdrawn while carefully examining the color, texture, anatomy, and integrity of the mucosoa circumferentially. Within the rectum retroflexion was performed. Colonoscope was then withdrawn. . Colonic preparation was excellent. There were a few scattered diverticuli. She had a couple of tiny diminutive possible early adenomatous polyps in the distal sigmoid removed with biopsy forceps. In the rectosigmoid there were multiple hyperplastic appearing polyps. These were sampled with biopsy forceps. Retroflexion revealed internal anal papilla. Findings:: Polyps as noted Internal anal papilla Recommendations:: Follow-up colonoscopy pending pathology. Likely 2 or 3 years Complications:: None immediate Estimated blood obtained (mL): 1 Colonoscopy Component Colonoscopy Component Was a colonoscopy performed during today's procedure?: Yes Recommended follow up colonoscopy of at least 10 years?: No If no, follow up colonoscopy recommended in ___ years?: Unclear Reason for not recommending >/= 10 yr follow-up interval?: Path
[2022-10-15 07:57] VITALS: BP 88/65; PULSE 82; RESP 18; O2SAT 94
[2022-10-15 08:07] VITALS: BP 121/71; PULSE 77; RESP 18; O2SAT 97
[2022-10-15 08:15] VITALS: BP 134/72; PULSE 78; RESP 18; O2SAT 94
== END 2022-10-15 08:25 | disposition home or self-care (01) ==
PROVIDERS: PCP Emergency Medicine; Visit Provider Surgery
PROC: 0DJD8ZZ Inspection of Lower Intestinal Tract, Via Natural or Artificial Opening Endoscopic (ICD-10-PCS; principal; 2022-10-15 07:30)
DX: Z12.11 Encounter for screening for malignant neoplasm of colon (principal); Z86.010 Personal history of colon polyps; D12.5 Benign neoplasm of sigmoid colon; K62.89 Other specified diseases of anus and rectum
CPT/HCPCS: 45380; 88305

== ENCOUNTER → 2022-11-05 14:16 | Outpatient (CLI) | payer MEDICARE, MEDICAID, SELFPAY ==
--- NOTE | 2022-11-05 14:16 | CT_ITS ---
FINAL REPORT TECHNIQUE: Axial CT images were performed from the lung apices through the upper abdomen. Coronal reformats were submitted. This study was performed with techniques to keep radiation doses as low as reasonably achievable (ALARA). Individualized dose reduction techniques using automated exposure control or adjustment of mA and/or kV according to the patient's size were employed. CLINICAL HISTORY: Lung nodule 3-month follow-up COMPARISON: 07/21/2022 FINDINGS: There is no axillary adenopathy. There is no hilar or mediastinal mass or adenopathy. Heart size is normal. There is no pericardial or pleural effusion. There has been interval improvement in the medial left upper lobe nodular opacity measuring 17 x 16 mm, previously measured 36 x 31 mm, most likely postinflammatory. There is mild emphysema and mild scarring. Multiple chronic right posterior rib fractures are identified. Limited images of the upper abdomen reveal a mild fatty liver. IMPRESSION: Interval improvement in the medial left upper lobe nodular opacity, most likely postinflammatory. Reviewed, Interpreted and Dictated by Bennie Mann III, MD Transcribed by Rachel Anderson Authenticated and [facility]
== END ==
PROVIDERS: PCP Emergency Medicine; Visit Provider Internal Medicine Pulmonary Disease
DX: R91.8 Other nonspecific abnormal finding of lung field (principal)
CPT/HCPCS: 71250

== ENCOUNTER → 2022-11-08 10:30 | Outpatient (CLI) | payer MEDICARE, MEDICAID, SELFPAY ==
[2022-11-08 14:57] LABS: Amphetamine/Metha Screen,Urine Negative ng/ml (<1000)
[2022-11-08 14:59] LABS: Barbiturates Screen,Urine Negative ng/ml (<200); Cannabinoid Screen,Urine Negative ng/ml (<50)
[2022-11-08 15:00] LABS: Benzodiazepines Screen,Urine Negative ng/ml (<200)
[2022-11-08 15:01] LABS: Cocaine Screen,Urine Negative ng/ml (<300); Opiate Screen,Urine Positive ng/ml (<300)
[2022-11-08 15:02] LABS: Methadone Screen,Urine Negative ng/ml (<300)
[2022-11-08 15:03] LABS: Phencyclidine Screen,Urine Negative ng/ml (<25)
== END ==
PROVIDERS: PCP Emergency Medicine; Visit Provider Emergency Medicine
DX: Z79.899 Other long term (current) drug therapy (principal)
CPT/HCPCS: 80305

== ENCOUNTER → 2022-12-08 10:22 | Outpatient (CLI) | payer MEDICARE, MEDICAID, SELFPAY ==
--- NOTE | 2022-12-08 10:27 | XR_ITS ---
FINAL REPORT CLINICAL HISTORY: sob COMPARISON: 09/02/2022 FINDINGS: Two views of the chest were obtained. The heart size and pulmonary vascularity are within normal limits. The mediastinum is normal. Right base atelectasis versus pneumonia is present. There is no pneumothorax. The bony thorax is intact. IMPRESSION: Right base atelectasis versus pneumonia. Reviewed, Interpreted and Dictated by Bennie Mann III, MD Transcribed by Denise Pritchett Authenticated and [facility]
== END ==
PROVIDERS: PCP Emergency Medicine; Visit Provider Internal Medicine Pulmonary Disease
DX: R06.09 Other forms of dyspnea (principal)
CPT/HCPCS: 71046

== ENCOUNTER → 2022-12-28 14:19 | Outpatient (CLI) | payer MEDICARE, MEDICAID, SELFPAY ==
--- NOTE | 2022-12-28 14:23 | XR_ITS ---
FINAL REPORT CLINICAL HISTORY: SOB COMPARISON: December 08, 2022 FINDINGS: PA and lateral views of the chest were obtained. The cardiac and mediastinal silhouettes are within normal limits. There may be an irregular nodule in the medial left lung apex overlying the first costosternal junction. This is likely unchanged. More inferior left upper lobe opacity has improved. There is new right lower lobe atelectasis or pneumonia. Blunting of the bilateral costophrenic angles is stable. No acute osseous abnormality is identified. IMPRESSION: New right lower lobe atelectasis or pneumonia. Irregular nodule in the medial left apex is likely unchanged. Reviewed, Interpreted and Dictated by Ruth Urban MD Transcribed by David Wren Authenticated and . [facility]
== END ==
PROVIDERS: PCP Emergency Medicine; Visit Provider Internal Medicine Pulmonary Disease
DX: R06.02 Shortness of breath (principal)
CPT/HCPCS: 71046

== ENCOUNTER → 2023-01-27 15:20 | Outpatient (CLI) | payer MEDICARE, MEDICAID, SELFPAY ==
--- NOTE | 2023-01-27 15:28 | MM_ITS ---
PROCEDURE INFORMATION: Exam: MG Bilateral Screening 3D Mammography Exam date and time: 01/27/2023 3:25 PM Age: 62 years old Clinical indication: Screening examination TECHNIQUE: Imaging protocol: Bilateral Screening tomosynthesis and 2D mammography including computer-aided detection (CAD) when performed. COMPARISON: 1. MG SCBI MM Dig screening mamm BI w/CAD 05/18/2018 4:06 PM 2. MG DIGITAL MAMM-SCREEN BILATERAL 09/24/2011 9:20 AM FINDINGS: MAMMOGRAPHY: Breast composition: There are scattered areas of fibroglandular density. Mass: None. Architectural distortion: None. Calcifications: No suspicious calcifications. Asymmetric density: None. Skin thickening: None. Axillary adenopathy: None. IMPRESSION: No mammographic evidence of malignancy. Annual screening is recommended unless otherwise clinically indicated. ASSESSMENT: BI-RADS Category 1: Negative
== END ==
PROVIDERS: PCP Emergency Medicine; Visit Provider Emergency Medicine
DX: Z12.31 Encounter for screening mammogram for malignant neoplasm of breast (principal)
CPT/HCPCS: 77063; 77067

== ENCOUNTER → 2023-02-07 12:49 | Outpatient (CLI) | payer MEDICARE, MEDICAID, SELFPAY ==
[2023-02-07 13:45] VITALS: PULSE 78; PULSE 84
== END ==
PROVIDERS: PCP Emergency Medicine; Visit Provider Internal Medicine Pulmonary Disease
DX: R06.09 Other forms of dyspnea (principal)
CPT/HCPCS: 94060; 94618; 94640; 94726; 94729

== ENCOUNTER 2023-03-02 18:13 | Outpatient (CLI) | payer MEDICARE, MEDICAID, SELFPAY ==
[2023-03-02 19:49] LABS: Amphetamine/Metha Screen,Urine Negative ng/ml (<1000); Barbiturates Screen,Urine Negative ng/ml (<200); Benzodiazepines Screen,Urine Positive ng/ml (<200); Cannabinoid Screen,Urine Negative ng/ml (<50); Methadone Screen,Urine Negative ng/ml (<300); Opiate Screen,Urine Positive ng/ml (<300); Phencyclidine Screen,Urine Negative ng/ml (<25)
[2023-03-02 19:57] LABS: Cocaine Screen,Urine Negative ng/ml (<300)
== END 2023-03-02 23:59 ==
LOC: LAB.DROPOF 18:14
PROVIDERS: PCP Internal Medicine; Visit Provider Internal Medicine
DX: Z79.899 Other long term (current) drug therapy (principal)
CPT/HCPCS: 80307

== ENCOUNTER 2023-03-29 20:46 | Outpatient (CLI) | payer MEDICARE, MEDICAID, SELFPAY ==
[2023-03-29 19:24] LABS: Basophils % 0.7 % (0.1-2.0); Eosinophils # 0.2 K/mm3 (0.0-0.4); Eosinophils % 3.7 % (0.1-12.0); Hematocrit 36.8 % (37.0-47.0); Hemoglobin 11.9 g/dL (12.2-16.2); Lymphocytes # 2.4 K/mm3 (0.7-4.5); Mean Corpuscular HGB Conc 32.3 g/dL (31.8-35.4); Mean Corpuscular Hemoglobin 30.7 pg (27.0-31.2); Mean Corpuscular Volume 95.1 fl (81-99); Mean Platelet Volume 9.8 fl (7.4-10.4); Monocytes # 0.5 K/mm3 (0.1-1.0); Monocytes % 8.4 % (1.7-9.3); Neutrophils # 2.9 K/mm3 (1.8-7.8); Neutrophils % 47.3 % (37.0-80.0); Platelet Count 276 K/mm3 (142-424); Red Blood Count 3.87 M/mm3 (4.20-5.40); Red Cell Distribution Width 15.4 % (11.5-17.5)
[2023-03-29 20:38] LABS: Chloride 99 mmol/L (98-107); Sodium 137 mmol/L (136-145)
[2023-03-29 20:41] LABS: Alanine Aminotransferase 16 U/L (12-78); Albumin Level 4.6 g/dl (3.5-5.0); Albumin/Globulin Ratio 1.8 (1.1-1.8); Alkaline Phosphatase 82 U/L (38-126); Aspartate Amino Transferase 31 U/L (14-36); Bilirubin,Total 0.4 mg/dl (0.2-1.3); Blood Urea Nitrogen 15 mg/dl (7-17); Calcium 9.9 mg/dl (8.4-10.2); Carbon Dioxide 32 mmol/L (22.0-30.0); Cholesterol 219 mg/dl (140-200); Estimated Glomerular Filt Rate 124 ml/min (>60); GFR (African American) 150 ML/MIN (>60); Globulin 2.5 g/dL (1.3-3.2); Glucose 93 mg/dl (74-100); Total Protein,Serum 7.1 g/dl (6.3-8.2); Triglycerides 178 mg/dl (30-150); VLDL Cholesterol 36 mg/dL (0-40)
[2023-03-29 20:42] LABS: Chol/HDL Ratio 3.5 (1-3.5); HDL Cholesterol 62 mg/dl (40-60)
[2023-03-29 20:47] LABS: Hemoglobin A1C 5.2 % (4.0-6.0)
[2023-03-29 20:53] LABS: Direct LDL Cholesterol 109.57 mg/dL (100-129)
== END 2023-03-29 23:59 ==
LOC: LAB.DROPOF 20:47
PROVIDERS: PCP Internal Medicine; Visit Provider Internal Medicine
DX: I10 Essential (primary) hypertension (principal); J44.9 Chronic obstructive pulmonary disease, unspecified; E78.5 Hyperlipidemia, unspecified; R73.03 Prediabetes
CPT/HCPCS: 80053; 80061; 83036; 85025

== ENCOUNTER 2023-04-14 09:21 | Outpatient (CLI) | payer MEDICARE, MEDICAID, SELFPAY ==
--- NOTE | 2023-04-14 09:27 | XR_ITS ---
FINAL REPORT CLINICAL HISTORY: osteopoprosis COMPARISON: 05/14/2021 FINDINGS: Using L1-4, the bone mineral density of the spine is 1.081 g/cm2, corresponding to T-score of 0.3 which is within the normal range but may be falsely elevated due to hypertrophic changes. Using the left hip, the bone mineral density of the femoral neck is 0.567 g/cm2, corresponding to a T-score of -2.5 which is within the osteoporotic range. Using the right hip: The bone mineral density of the femoral neck is 0.549 g/cm2, corresponding to a T-score of -2.7 which is within the osteoporotic range. IMPRESSION: Normal bone mineral density of the lumbar spine but this is likely falsely elevated due to hypertrophic change. Osteoporosis of the bilateral hips. NOTE: T-score: Standard deviation compared with peak bone mass of young adult mean. *Following the recommendations of the International Society of Bone densitometry, classification of hip BMD is based on the lower of two T-scores; total hip or femoral neck. Reviewed, Interpreted and Dictated by Miguel Hraden MD Transcribed by Liss Herring Authenticated and [facility]
--- NOTE | 2023-04-14 09:56 | XR_ITS ---
FINAL REPORT CLINICAL HISTORY: compression fracture COMPARISON: None FINDINGS: Three views of the thoracic spine were obtained. There is no fracture present. There is no obvious compression deformity. There is no malalignment. There is about 45 degrees of thoracic scoliosis convex to the right. There are no significant degenerative changes. IMPRESSION: No acute process. No obvious compression deformity. Reviewed, Interpreted and Dictated by Miguel Harden MD Transcribed by Janae Linares Authenticated and [facility]
--- NOTE | 2023-04-14 09:56 | XR_ITS ---
FINAL REPORT CLINICAL HISTORY: compression fracture COMPARISON: None FINDINGS: LUMBOSACRAL SPINE SERIES Five views of the lumbosacral spine were obtained. There is no fracture present. No evidence of compression deformity. There is no malalignment. There is about 60 degrees of thoracolumbar scoliosis convex to the left. There are no significant degenerative changes. There are dense vascular calcifications in the abdominal aorta. IMPRESSION: No acute process. No evidence of compression deformity. Reviewed, Interpreted and Dictated by Miguel Harden MD Transcribed by Janae Linares Authenticated and [facility]
== END 2023-04-14 23:59 ==
PROVIDERS: PCP Internal Medicine; Visit Provider Internal Medicine
DX: M81.0 Age-related osteoporosis without current pathological fracture (principal); M54.50 Low back pain, unspecified; M54.6 Pain in thoracic spine
CPT/HCPCS: 72072; 72110; 77080

== ENCOUNTER 2023-04-25 14:06 | Outpatient (CLI) | payer MEDICARE, MEDICAID, SELFPAY ==
--- NOTE | 2023-04-25 14:10 | XR_ITS ---
FINAL REPORT CLINICAL HISTORY: left wrist injury FINDINGS: LEFT WRIST Three views demonstrate no acute fracture or dislocation. The visualized joint spaces are normally aligned. Moderate degenerative changes seen at the radial aspect of the wrist. The soft tissues are unremarkable. IMPRESSION: No acute bony abnormality. Reviewed, Interpreted and Dictated by Bennie Mann III, MD Transcribed by Maria L Hdez Authenticated and [facility]
[2023-04-25 18:16] LABS: Basophils # 0.1 K/mm3 (0-0.2); Basophils % 0.9 % (0.1-2.0); Eosinophils # 0.3 K/mm3 (0.0-0.4); Eosinophils % 5.4 % (0.1-12.0); Hematocrit 34.3 % (37.0-47.0); Hemoglobin 10.9 g/dL (12.2-16.2); Lymphocytes # 2.5 K/mm3 (0.7-4.5); Lymphocytes % 46.5 % (10-50); Mean Corpuscular HGB Conc 31.7 g/dL (31.8-35.4); Mean Corpuscular Hemoglobin 30.9 pg (27.0-31.2); Mean Corpuscular Volume 97.3 fl (81-99); Mean Platelet Volume 8.8 fl (7.4-10.4); Monocytes # 0.5 K/mm3 (0.1-1.0); Monocytes % 8.9 % (1.7-9.3); Neutrophils # 2.1 K/mm3 (1.8-7.8); Neutrophils % 38.2 % (37.0-80.0); Platelet Count 336 K/mm3 (142-424); Red Blood Count 3.52 M/mm3 (4.20-5.40); Red Cell Distribution Width 15.4 % (11.5-17.5); White Blood Count 5.4 K/mm3 (4.8-10.8)
[2023-04-27 17:54] LABS: Peripheral Smear Review Scanned Result
== END 2023-04-25 23:59 ==
LOC: RAD 14:07
PROVIDERS: PCP Internal Medicine; Visit Provider Internal Medicine
DX: M25.532 Pain in left wrist (principal); D64.9 Anemia, unspecified; Z79.899 Other long term (current) drug therapy
CPT/HCPCS: 73110; 85025

== ENCOUNTER 2023-05-05 10:49 | Outpatient (CLI) | payer MEDICARE, MEDICAID, SELFPAY ==
[2023-05-05 11:48] LABS: Reticulocyte % (Auto) 1.1 % (0.9-3.2)
[2023-05-05 12:26] LABS: Iron 157 ug/dL (37-170)
[2023-05-05 12:36] LABS: Total Iron Binding Capacity 396 ug/dL (265-497)
[2023-05-05 12:58] LABS: Thyroid Stimulating Hormone 1.41 uIU/mL (0.465-4.68)
[2023-05-05 15:17] LABS: Lactate Dehydrogenase 180 U/L (313-618)
[2023-05-05 16:24] LABS: Vitamin B12 238 pg/mL (239-931)
[2023-05-05 16:28] LABS: Folate 8.08 ng/mL
[2023-05-06 09:13] LABS: Haptoglobin 160 mg/dL (37-355)
== END 2023-05-05 23:59 ==
LOC: LAB 10:50
PROVIDERS: PCP Internal Medicine; Visit Provider Internal Medicine Medical Oncology
DX: D64.89 Other specified anemias (principal); D51.8 Other vitamin B12 deficiency anemias
CPT/HCPCS: 36415; 82607; 82728; 82746; 83010; 83540; 83550; 83615; 84443; 85044; 86880

== ENCOUNTER 2023-05-23 10:26 | Outpatient (CLI) | payer MEDICARE, MEDICAID, SELFPAY ==
--- NOTE | 2023-05-23 10:33 | XR_ITS ---
FINAL REPORT CLINICAL HISTORY: chest pain COMPARISON: 12/28/2022 FINDINGS: Two views of the chest were obtained. The heart size and pulmonary vascularity are within normal limits. The mediastinum is normal. There is a right base opacity, consistent with atelectasis or pneumonia. There is no pneumothorax. There are several chronic right posterior rib fractures present. There is an S-shaped scoliosis of the thoracic and lumbar spine unchanged since the prior exam of 2022. IMPRESSION: No active cardiopulmonary disease. Right base opacity consistent with atelectasis or pneumonia. This was also present on the prior exam of December. Reviewed, Interpreted and Dictated by Bennie Mann III, MD Transcribed by Denise Pritchett Authenticated and [facility]
--- NOTE | 2023-05-23 10:47 | XR_ITS ---
FINAL REPORT CLINICAL HISTORY: Chronic mid back pain COMPARISON: 04/14/2023 FINDINGS: THORACIC SPINE 2 views were obtained. There is no acute fracture. There is dextroscoliosis of the thoracic spine. Moderate degenerative changes are stable from the prior exam. There is no soft tissue abnormality. IMPRESSION: Stable exam. LUMBAR SPINE 3 views were obtained. There is no acute fracture. There is levoscoliosis of the lumbar spine. There are moderate to severe degenerative changes with osteophytes and facet arthropathy. Moderate vascular calcifications are noted. There is no soft tissue abnormality. IMPRESSION: Stable exam. Reviewed, Interpreted and Dictated by Bennie Mann III, MD Transcribed by Liss Herring Authenticated and [facility]
== END 2023-05-23 23:59 ==
LOC: RAD 10:27
PROVIDERS: PCP Internal Medicine; Visit Provider Internal Medicine
DX: M81.0 Age-related osteoporosis without current pathological fracture (principal); R07.9 Chest pain, unspecified; R06.09 Other forms of dyspnea; M54.9 Dorsalgia, unspecified
CPT/HCPCS: 71046; 72084

== ENCOUNTER 2023-06-14 11:02 | Outpatient (CLI) | payer MEDICARE, MEDICAID, SELFPAY ==
--- NOTE | 2023-06-14 11:06 | XR_ITS ---
FINAL REPORT CLINICAL HISTORY: possible fracture COMPARISON: 05/23/2023 FINDINGS: THORACIC SPINE Three views of the thoracic spine were obtained. There is no evidence of fracture. There is thoracolumbar scoliosis convex to the left measuring approximately 50 degrees. There is mild anterior osteophyte formation in the lower thoracic spine. IMPRESSION: No acute bony abnormality. LUMBOSACRAL SPINE 5 views of the lumbar spine were obtained. There is no evidence of fracture or dislocation. There is thoracolumbar scoliosis convex to the left measuring approximately 50 degrees. There is moderate disc space narrowing at L1-2, L2-3, and L3-4. There is anterior osteophyte formation most evident at L2-3. No paraspinous soft tissue abnormalities identified. IMPRESSION: Degenerative changes without acute bony abnormality. Reviewed, Interpreted and Dictated by Miguel Harden MD Transcribed by Janae Linares Authenticated and [facility]
--- NOTE | 2023-06-14 11:06 | XR_ITS ---
FINAL REPORT TECHNIQUE: Chest PA & Lateral CLINICAL HISTORY: SOB COMPARISON: 05/23/2023 FINDINGS: 2 views of the chest were performed. The heart size is at the upper limits of normal. The mediastinum is within normal limits. The lungs are underinflated. The previously noted opacity at the right lung base has resolved, probably due to resolved pneumonia. There are no pleural effusions. There is no pneumothorax. The bony thorax appears intact. IMPRESSION: Interval resolution right lung base opacity. Reviewed, Interpreted and Dictated by Miguel Hardne MD Transcribed by Janae Linares Authenticated and [facility]
== END 2023-06-14 23:59 | disposition home or self-care (01) ==
LOC: RAD 11:04
PROVIDERS: PCP Internal Medicine; Visit Provider Internal Medicine Pulmonary Disease
DX: R06.02 Shortness of breath; M54.50 Low back pain, unspecified; M54.6 Pain in thoracic spine
CPT/HCPCS: 71046; 72084

== ENCOUNTER 2023-06-28 09:55 | Outpatient (CLI) | payer MEDICARE, MEDICAID, SELFPAY ==
--- NOTE | 2023-06-28 10:00 | XR_ITS ---
FINAL REPORT CLINICAL HISTORY: Rt Elbow Pain COMPARISON: None FINDINGS: RIGHT ELBOW 3 views were obtained. There is no acute fracture or dislocation. There is no joint effusion. There is mild degenerative change. There is a 6 mm loose body adjacent to the lateral humeral epicondyle. There is no soft tissue abnormality. IMPRESSION: No acute bony abnormality. 6 mm loose body. Reviewed, Interpreted and Dictated by Bennie Mann III, MD Transcribed by Janae Linares Authenticated and [facility]
== END 2023-06-28 23:59 | disposition home or self-care (01) ==
LOC: RAD 09:56
PROVIDERS: PCP Internal Medicine; Visit Provider Orthopaedic Surgery
DX: M25.521 Pain in right elbow (principal)
CPT/HCPCS: 73080

== ENCOUNTER 2023-08-09 10:43 | Outpatient (CLI) | payer MEDICARE, MEDICAID, SELFPAY ==
[2023-08-09 11:17] LABS: Basophils # 0.1 K/mm3 (0-0.2); Eosinophils # 0.4 K/mm3 (0.0-0.4); Eosinophils % 7.1 % (0.1-12.0); Hematocrit 35.3 % (37.0-47.0); Lymphocytes # 2.1 K/mm3 (0.7-4.5); Mean Corpuscular Hemoglobin 29.3 pg (27.0-31.2); Mean Corpuscular Volume 94.3 fl (81-99); Mean Platelet Volume 7.6 fl (7.4-10.4); Monocytes # 0.5 K/mm3 (0.1-1.0); Monocytes % 8.7 % (1.7-9.3); Neutrophils # 2.2 K/mm3 (1.8-7.8); Neutrophils % 42.1 % (37.0-80.0); Platelet Count 268 K/mm3 (142-424); Red Blood Count 3.74 M/mm3 (4.20-5.40); Red Cell Distribution Width 15.6 % (11.5-17.5); White Blood Count 5.2 K/mm3 (4.8-10.8)
[2023-08-09 12:56] LABS: Vitamin B12 859 pg/mL (239-931)
[2023-08-09 13:00] LABS: Folate 8.34 ng/mL
== END 2023-08-09 23:59 | disposition home or self-care (01) ==
LOC: LAB 10:45
PROVIDERS: PCP Internal Medicine; Visit Provider Internal Medicine Medical Oncology
DX: D64.9 Anemia, unspecified (principal); E53.8 Deficiency of other specified B group vitamins; Z68.21 Body mass index [BMI] 21.0-21.9, adult
CPT/HCPCS: 36415; 82607; 82746; 85025